=== PATIENT | female | born 1960 | race Caucasian/White ===

== ENCOUNTER → 2016-07-30 | Outpatient (REF) | payer BC ==
[~2016-07-30] MED LIST: /LOR25TA PO; ACET-654 PO; ULTR50TA PO
== END ==
LOC: M SFHCLERA 16:15
PROVIDERS: ATTEND Physician Assistant
DX: E78.2 Mixed hyperlipidemia (principal); Z79.899 Other long term (current) drug therapy

== ENCOUNTER → 2016-10-26 | Outpatient (CLI) | payer BC ==
--- NOTE | 2016-10-27 00:31 | ECWPNPC ---
PATIENT NAME: YASHIRA CAZARES : 1960 GENDER: FEMALE VISIT DATE: 10/26/2016 DISCHARGE DATE: 10/26/16 1459 VISIT LOCKED DATE TIME: PHYSICIAN: BRANDI NUNEZ RESOURCE: BRANDI NUNEZ REASON FOR APPOINTMENT 1. NECK HISTORY OF PRESENT ILLNESS FALL RISK SCREENIN56 Y/O FEMALE ,KNOWN TO OUR CLINIC ,LAST VISIT WAS IN 2011.REFERRED BY PORSHA SAUCEDO FOR EVALUATION OF CHRONIC NECK PAIN AND LEFT ARM PAIN.DESCRIBES PRESSURE LIKE PAIN IN NECK.THIS IS INTERMITTENT.REPORTING FACIAL NUMBNESS.REPORTS AT TIMES NECK PAIN IS SO BAD SHE WAS IN BED X 2 DAYS.REPORTS NECK SWELLING THAT EFFECTS THROAT.HISTORY OF CERVICAL SURGERY IN 2004.USING TRAMADOL 3-6 TABLETS DAILY.REPORTS THAT COLD WEATHER AGGREVATES PAIN.USES HEAT NIGHTLY AND PRN AND NECK BRACE.PAIN IS AGGREVATED BY PROLONGED SITTING IN CERTAIN CHAIRS.REPORTS POOR SLEEP AT NIGHT THAT HAS BEEN GOING ON FOR YEARS.NO RECENT FEER,ILLNESS OR WEIGHT LOSS.REPORTING NORMAL BOWEL AND BLADDER FUNCTION. SCREENING :NO FALLS IN THE PAST YEAR PAIN SCREENING: PATIENT HAS A COMPLAINT OF ACUTE OR CHRONIC PAIN :YES CURRENT MEDICATIONS TAKING BACLOFEN 10 MG TABLET 1 TABLET WITH FOOD OR MILK ORALLY BID PRN, NOTES: PRN TAKING TRAMADOL HCL 50 MG TABLET 1 TABLET NEEDED ORALLY EVERY 6 HRS MDD=4 TAKING FLONASE ALLERGY RELIEF 50 MCG/ACT SUSPENSION 1 SPRAY IN EACH NOSTRIL NASALLY BID TAKING HYDROCODONE-ACETAMINOPHEN 5-325 MG TABLET 1 TABLET NEEDED ORALLY BID PRN MDD=2, NOTES: PRN NOT-TAKING CETIRIZINE HCL 10 MG TABLET 1 TABLET ORALLY ONCE A DAY NOT-TAKING NASONEX 50 MCG/ACT SUSPENSION 2 SPRAYS IN EACH NOSTRIL NASALLY ONCE A DAY NOT-TAKING OXYBUTYNIN CHLORIDE 5 MG TABLET 1 TABLET ORALLY TWICE A DAY DISCONTINUED AMOXICILLIN 875 MG TABLET 1 TABLET ORALLY EVERY 12 HRS MEDICATION LIST REVIEWED AND RECONCILED WITH THE PATIENT PAST MEDICAL HISTORY CHRONIC NECK AND SHOULDER PAIN 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 2DAUGHTER(S) - HEALTHY. DENIES B/C/O CANCERS. NO THYROID CANCERFATHER AND MOTHER--LUNG CAMOTHER-HYPOTHYROID. SOCIAL HISTORY GENERAL: TOBACCO USE ARE YOU A:FORMER SMOKER HOW LONG HAS IT BEEN SINCE YOU LAST SMOKED?1-5 YEARS LUNG CANCER SCREENING SMOKING STATUS:FORMER SMOKER BMI CARE GOAL FOLLOW-UP ABOVE NORMAL BMI FOLLOW-UPDIETARY MANAGEMENT EDUCATION, GUIDANCE, AND COUNSELING, DIETARY NEEDS EDUCATION ALCOHOL SCREENING POINTS0 INTERPRETATIONNEGATIVE RECREATIONAL DRUG USE DENIES. CAFFEINE CAFFEINE USE?YES HOW OFTEN AND HOW MUCH? 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 DIET: NO HX EATING DISORDERS, REGULAR DIET. EXERCISE: NO REGULAR EXERCISE (WALKS IN THE SUMMER). MARITAL STATUS: . OTHERS AT HOME: DAUGHTER. PETS: 1 DOG. RELIGIOUS NO MU-ISM BELIEFS THAT WOULD IMPACT HEALTH CARE. LANGUAGE ICELANDIC. EDUCATION LEVEL OF EDUCATION:PROFESSIONAL SCHOOLS/MASTERS/PHD LEARNING BARRIERS / SPECIAL NEEDS BARRIERS TO LEARNING?NO HEARING IMPAIRED?NO VISION IMPAIRED?YES :CORRECTIVE LENSES COGNITIVELY IMPAIRED?NO READINESS TO LEARN?YES LEARNING PREFERENCES?YES :OTHER (PLEASE COMMENT) READING LEARNING CAPABILITIES PRESENT?YES EMOTIONAL BARRIERS?NO SPECIAL DEVICES?NO ADDRESS CHANGE CLERK NEEDED?NO PAIN CLINIC PFS, CLERGY, PUBLIC HEALTH REFERRALS PFS REFERRAL NEEDED?NO CLERGY REFERRAL NEEDED?NO PUBLIC HEALTH REFERRAL NEEDED?NO ADVANCED DIRECTIVES HEALTH CARE PROXY?NO WOULD YOU LIKE MORE INFORMATION?YES GIVEN DO YOU HAVE A DNR?NO WOULD YOU LIKE MORE INFORMATION?NO LIVING WILL?NO WOULD YOU LIKE MORE INFORMATION?NO POWER OF RN BONE MARROW TRANSPLANT?NO WOULD YOU LIKE MORE INFORMATION?NO DOMESTIC VIOLENCE: DENIES SEXUAL, PHYSICAL ABUSE, VERBAL ABUSE. PLAN OF CARE FOR THE PAIN CENTER REVIEWED WITH PT. AND SHE VERBALIZED UNDERSTANDING. HOSPITALIZATION/MAJOR DIAGNOSTIC PROCEDURE CHILDBIRTH 1989, 1987 SURGERY RELATED REVIEW OF SYSTEMS CONSTITUTIONAL: ANY CHANGE IN YOUR MEDICAL CONDITION? NO . CHILLS NO . FEVER NO . INFECTION: DO YOU HAVE NEW INFECTIONS? NO . DO YOU HAVE HISTORY OF MRSA? NO . MUSCULOSKELETAL: ANY NEW PATTERNS OF PAIN OR NUMBNESS? NO . SYTEMIC LUPUS NO . GASTROENTEROLOGY: ANY NEW CHANGE IN BOWEL CONTROL? NO . BARRETTS ESOPHAGUS NO . CIRRHOSIS NO . HEPATITIS NO . LIVER FAILURE NO . ACID REFLUX YES . UNEXPLAINED WEIGHT LOSS NO . GENITOURINARY: ANY NEW CHANGE IN BLADDER CONTROL? NO . IS THERE A CHANCE YOU COULD BE ? NO . HEMATOLOGY/LYMPH: DO YOU TAKE ANY BLOOD THINNERS? (FOR EXAMPLE- COUMADIN, PLAVIX, AGGRENOX, PLATEL, PRADAXA, OR XARELTO) NO . WHEN WAS YOUR LAST DOSE? DATE: TIME: . LOW PLATELET COUNT NO . SICKLE CELL DISEASE NO . VON WILLIEBRANDS NO . FACTOR V LEIDEN NO . THALLASEMIA NO . ANEMIA NO . EASY BRUISING NO . NEUROLOGY: HAVE YOU FALLEN IN THE PAST 6 MONTHS? NO . ANY NEW EXTREMITY NUMBNESS OR WEAKNESS? NO . HEAD INJURY NO . DEMENTIA NO . CEREBRAL PALSY NO . MULTIPLE SCLEROSIS NO . DIZZINESS NO . HEADACHE NO . STROKES NO . VERTIGO NO . CARDIOLOGY: DO YOU HAVE A PACEMAKER OR DEFIBRILLATOR? NO . ANGINA NO . HEART ATTACK NO . HEART SURGERY NO . CONGESTIVE HEART FAILURE/FLUID OVERLOAD NO . CHEST PAIN NO . HIGH BLOOD PRESSURE NO . IRREGULAR HEART BEAT NO . RESPIRATORY: HAVE YOU BEEN SICK IN THE PAST WEEK? NO . FEVER NO . FLU LIKE SYMPTOMS? NO . CPAP NO . BYPAP NO . ASTHMA NO . EMPHYSEMA NO . CHRONIC LUNG DISEASES NO . SHORTNESS OF BREATH ON EXERTION NO . COUGH NO . SNORING YES, NEVER TESTED FOR ERIC . INTEGUMENTARY: DO YOU HAVE ANY RASHES OR OPEN SORES? NO . ALLERGIC/IMMUNO: ARE YOU ALLERGIC TO SHELLFISH OR IV DYE? NO . ANY NEW ALLERGIES? NO . PSYCHIATRIC: DO YOU HAVE THOUGHTS OF HURTING YOURSELF OR SOMEONE ELSE? NO . ARE YOU ABUSED, NEGLECTED, OR IN AN UNSAFE ENVIRONMENT? NO . ENDOCRINOLOGY: ARE YOU DIABETIC? NO . THYROID DISORDER NO . OTHER: DO YOU NEED ANY PRESCRIPTIONS? NO . IF YES, PLEASE LIST: ____ . ANY NEW PROBLEMS WITH YOUR MEDICATIONS? NO . WHEN DID YOU LAST EAT? ____ . WHEN DID YOU LAST DRINK? ____ . WHAT DID YOU LAST DRINK? ____ . NAME OF PERSON DRIVING YOU HOME? ____ . DO YOU HAVE ANY OTHER QUESTIONS OR CONCERNS PAIN RELIEF--DOES NOT HAVE ANY SOCIAL LIFE DUE TO THE PAIN . REVIEWED BY: PROVIDER: BRANDI THOMPSON . VITAL SIGNS WT 169.4 LBS, HT 67 IN, BMI 26.53 INDEX, BP 136/64 MM HG, HR 82 /MIN, RR 18 /MIN, TEMP 97.5 F, OXYGEN SAT % 94%, NA INITIALS SC 13:42, REVIEWED BY: AD. EXAMINATION CERVICAL SPINE: INSPECTION:NORMAL CONTOUR. PALPATION:VAGUE REPORTS OF TENDERNESS/NUMBNESS LEFT TRAPEZIUS., MIDLINE TENDERNESS. RANGE OF MOTION:LIMITED , FLEXION:. MOTOR EXAM UPPER EXTREMITIES:5/5 ALL GROUPS BILATERALLY. SENSORY EXAM UPPER EXTREMITIES:NORMAL BILATERALLY. TESTS:DTR'S /. DIAGNOSTIC DATA-CERVICAL SPINE SERIES-03/28/15-REVIEWED. ASSESSMENTS CERVICALGIA - M54.2 (PRIMARY) MYALGIA - M79.1 TREATMENT CERVICALGIA [facility] MRI SPINE, CERVICAL WITHOUT [id number] TRIGGER POINT 1-2 BRANDI MATTHEWS 10/26/2016 2:45:29 PM > BILAT. UPPER C-SPINE/BILAT. OCCIPITAL NOTES: TRIGGER POINT INJECTION MATERIAL WAS PRINTED,TRIGGER POINT INJECTION: YOUR EXPERIENCE MATERIAL WAS PRINTED. MYALGIA TRIGGER POINT 1-2 BRANDI MATTHEWS 10/26/2016 2:45:29 PM > BILAT. UPPER C-SPINE/BILAT. OCCIPITAL PREVENTIVE MEDICINE PAIN CLINIC TEACHING: PROCEDURE TEACHING PRINTED INFORMATION ON TPI GIVEN TO AND EXPLAINED TO PT. ALONG WITH PRE-PROCEDURE INSTRUCTIONS AND SHE VERBALIZED UNDERSTANDING.. PROCEDURE CODES FA211 ESTABILISHED PATIENT [facility] CHARGE DISPOSITION & COMMUNICATION FOLLOW UP 2WK POST (REASON: TPI UPPER C-SPINE/OCCIPITAL NERVE BLOCK) ELECTRONICALLY SIGNED BY DONNA DONALDSON ON 10/26/2016 AT 03:24 PM EDT DISCLAIMER : THIS IS A VISIT SUMMARY EXTRACTED FROM THE [employer] CHART. IT IS NOT A COPY OF THE [employer] PROGRESS NOTE. RAFFAELE
== END ==
LOC: M PAIN 13:20
PROVIDERS: ATTEND Nurse Practitioner Family
DX: G89.29 Other chronic pain (principal); M54.2 Cervicalgia; M79.1 Myalgia; E78.2 Mixed hyperlipidemia; N39.46 Mixed incontinence; J30.89 Other allergic rhinitis; L23.81 Allergic contact dermatitis due to animal (cat) (dog) dander; K21.9 Gastro-esophageal reflux disease without esophagitis; Z79.899 Other long term (current) drug therapy

== ENCOUNTER → 2016-12-04 | Outpatient (CLI) | payer BC ==
--- NOTE | 2016-12-04 19:01 | REP ---
MR CERVICAL SPINE WITHOUT CONTRAST: HISTORY: Neck pain. COMPARISON:02/19/2005 The patient is status-post C5-6 anterior spinal fusion. The spinal canal and neural foramina are patent at this level. A disc bulge with associated osteophyte formation is present at the C6-7 level. There is minimal effacement of the thecal sac without spinal cord compression. Bilateral uncinate process hypertrophy is present. This produces minimal and moderate narrowing of the right and left C6 neural foramina respectively. There is no other disc bulge or herniation. The remaining neural foramina are patent. The spinal cord is normal in signal intensity. The C6-7 intervertebral disc is decreased in height consistent with disc degeneration. Normal signal intensity is present in the cervical vertebral bodies. There is no subluxation. IMPRESSION; 1. The patient is status-post C5-6 anterior spinal fusion. There is anatomic alignment. This is a new finding. 2. There is cervical spondylosis at the C6-7 level without spinal cord compression. This is a new finding. Signed by Jhony Ledesma MD 12/04/2016 07:05 P
== END ==
LOC: M RAD 17:26
PROVIDERS: ATTEND Nurse Practitioner Family
DX: M54.2 Cervicalgia (principal); M47.814 Spondylosis without myelopathy or radiculopathy, thoracic region; Z98.1 Arthrodesis status

== ENCOUNTER → 2016-12-17 | Outpatient (CLI) | payer OTHER ==
--- NOTE | 2016-12-17 13:04 | REP ---
RIGHT WRIST, FOUR VIEWS: HISTORY: Contusion. There is no acute fracture or dislocation. The joint spaces are normal in appearance. IMPRESSION: There is no acute fracture or dislocation. Signed by Jhony Ledesma MD 12/17/2016 01:29 P
--- NOTE | 2016-12-17 13:20 | REP ---
RIGHT HAND, FOUR VIEWS: HISTORY: Contusion. There is no acute fracture or dislocation. The joint spaces are normal in appearance. IMPRESSION: There is no acute fracture or dislocation. Signed by Jhony Ledesma MD 12/17/2016 01:30 P
== END ==
LOC: M WUC 11:31
PROVIDERS: ATTEND Physician Assistant
DX: S60.211A Contusion of right wrist, initial encounter (principal); S60.221A Contusion of right hand, initial encounter; X58.XXXA Exposure to other specified factors, initial encounter; Y93.9 Activity, unspecified; Y92.9 Unspecified place or not applicable; Y99.8 Other external cause status

== ENCOUNTER → 2016-12-22 | Outpatient (CLI) | payer BC ==
--- NOTE | 2016-12-23 | ECWPNPC ---
PATIENT NAME: YASHIRA CAZARES : 1960 GENDER: FEMALE VISIT DATE: 12/22/2016 DISCHARGE DATE: 12/22/16 1411 VISIT LOCKED DATE TIME: PHYSICIAN: BRANDI NUNEZ RESOURCE: BRANDI NUNEZ REASON FOR APPOINTMENT 1. REVIEW MRI HISTORY OF PRESENT ILLNESS HISTORY OF PRESENT ILLNESS: HERE FOR F/U AND MANAGEMENT OF CHRONIC NECK PAIN S/P NECK SURGERY 2008.REVIEWED MRI CERVICAL SPINE ORDERED AT LAST VISIT AND DONE ON 12-04-16.DISCUSSED TREATMENT OPTIONS.CONTINUES TO REPORT EPISODES OF THROAT SWELLING WITH FLARES OF INCREASED NECK PAIN.RATING PAIN VAS 3/10.REPORTS PERIODIC IE 2X-3X PER MONTH OF SEVERE PAIN.REPORTS DESIRE TO BE OFF PAIN MEDIATION.CURRENTLY USING 2-3 TAB PER DAY OF ULTRACET AND PRN USE OF HYDROCODONE. PAIN THE PATIENT DESCRIBES THE PAIN... FALL RISK SCREENING: SCREENING :NO FALLS IN THE PAST YEAR CURRENT MEDICATIONS TAKING BACLOFEN 10 MG TABLET 1 TABLET WITH FOOD OR MILK ORALLY BID PRN TAKING FLONASE ALLERGY RELIEF 50 MCG/ACT SUSPENSION 1 SPRAY IN EACH NOSTRIL NASALLY BID TAKING HYDROCODONE-ACETAMINOPHEN 5-325 MG TABLET 1 TABLET NEEDED ORALLY BID PRN MDD=2 TAKING TRAMADOL HCL 50 MG TABLET 1 TABLET NEEDED ORALLY EVERY 6 HRS MDD=4 NOT-TAKING CETIRIZINE HCL 10 MG TABLET 1 TABLET ORALLY ONCE A DAY NOT-TAKING NASONEX 50 MCG/ACT SUSPENSION 2 SPRAYS IN EACH NOSTRIL NASALLY ONCE A DAY NOT-TAKING OXYBUTYNIN CHLORIDE 5 MG TABLET 1 TABLET ORALLY TWICE A DAY MEDICATION LIST REVIEWED AND RECONCILED WITH THE PATIENT PAST MEDICAL HISTORY CHRONIC NECK AND SHOULDER PAIN 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 LUNG CANCER SCREENING SMOKING STATUS:FORMER SMOKER BMI CARE GOAL FOLLOW-UP ABOVE NORMAL BMI FOLLOW-UPDIETARY MANAGEMENT EDUCATION, GUIDANCE, AND COUNSELING, DIETARY NEEDS EDUCATION ALCOHOL SCREENING DID YOU HAVE A DRINK CONTAINING ALCOHOL IN THE PAST YEAR?NO POINTS0 INTERPRETATIONNEGATIVE RECREATIONAL DRUG USE DENIES. CAFFEINE CAFFEINE USE?YES HOW OFTEN AND HOW MUCH? 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 DIET: NO HX EATING DISORDERS, REGULAR DIET. EXERCISE: NO REGULAR EXERCISE (WALKS IN THE SUMMER). MARITAL STATUS: . OTHERS AT HOME: DAUGHTER. PETS: 1 DOG. EPISCOPALIAN NO AMISH BELIEFS THAT WOULD IMPACT HEALTH CARE. LANGUAGE FAROESE. EDUCATION LEVEL OF EDUCATION:PROFESSIONAL SCHOOLS/MASTERS/PHD LEARNING BARRIERS / SPECIAL NEEDS BARRIERS TO LEARNING?NO HEARING IMPAIRED?NO VISION IMPAIRED?YES COGNITIVELY IMPAIRED?NO :CORRECTIVE LENSES READINESS TO LEARN?YES LEARNING PREFERENCES?YES :OTHER (PLEASE COMMENT) READING LEARNING CAPABILITIES PRESENT?YES EMOTIONAL BARRIERS?NO SPECIAL DEVICES?NO REVENUE AUDIT CLERK NEEDED?NO PAIN CLINIC PFS, CLERGY, PUBLIC HEALTH REFERRALS PFS REFERRAL NEEDED?NO CLERGY REFERRAL NEEDED?NO PUBLIC HEALTH REFERRAL NEEDED?NO HAS THE PATIENT BEEN EDUCATED REGARDING HIS/HER PLAN OF CARE?YES HAS THE PATIENT BEEN EDUCATED REGARDING PAIN, THE RISK FOR PAIN, THE IMPORTANCE OF EFFECTIVE PAIN MANAGEMENT, AND THE PAIN ASSESSMENT PROCESS?YES ADVANCE DIRECTIVES HEALTH CARE PROXY?NO WOULD YOU LIKE MORE INFORMATION?YES GIVEN POWER OF ENGAGEMENT EXECUTIVE?NO DO YOU HAVE A DNR?NO WOULD YOU LIKE MORE INFORMATION?NO LIVING WILL?NO WOULD YOU LIKE MORE INFORMATION?NO WOULD YOU LIKE MORE INFORMATION?NO DOMESTIC VIOLENCE DENIES SEXUAL, PHYSICAL ABUSE, VERBAL ABUSE. PLAN OF CARE FOR THE PAIN CENTER REVIEWED WITH PT. AND SHE VERBALIZED UNDERSTANDING. REVIEW OF SYSTEMS CONSTITUTIONAL: ANY CHANGE IN YOUR MEDICAL CONDITION? NO . CHILLS NO . FEVER NO . INFECTION: DO YOU HAVE NEW INFECTIONS? NO . DO YOU HAVE HISTORY OF MRSA? NO . MUSCULOSKELETAL: ANY NEW PATTERNS OF PAIN OR NUMBNESS? NO . GASTROENTEROLOGY: ANY NEW CHANGE IN BOWEL CONTROL? NO . GENITOURINARY: ANY NEW CHANGE IN BLADDER CONTROL? NO . IS THERE A CHANCE YOU COULD BE ? NO . HEMATOLOGY/LYMPH: DO YOU TAKE ANY BLOOD THINNERS? (FOR EXAMPLE- COUMADIN, PLAVIX, AGGRENOX, PLATEL, PRADAXA, OR XARELTO) NO . WHEN WAS YOUR LAST DOSE? DATE: TIME: . NEUROLOGY: HAVE YOU FALLEN IN THE PAST 6 MONTHS? NO . ANY NEW EXTREMITY NUMBNESS OR WEAKNESS? NO . CARDIOLOGY: DO YOU HAVE A PACEMAKER OR DEFIBRILLATOR? NO . RESPIRATORY: HAVE YOU BEEN SICK IN THE PAST WEEK? NO . FEVER NO . FLU LIKE SYMPTOMS? NO . COUGH NO . INTEGUMENTARY: DO YOU HAVE ANY RASHES OR OPEN SORES? NO . ALLERGIC/IMMUNO: ARE YOU ALLERGIC TO SHELLFISH OR IV DYE? NO . ANY NEW ALLERGIES? NO . PSYCHIATRIC: DO YOU HAVE THOUGHTS OF HURTING YOURSELF OR SOMEONE ELSE? NO . ARE YOU ABUSED, NEGLECTED, OR IN AN UNSAFE ENVIRONMENT? NO . ENDOCRINOLOGY: ARE YOU DIABETIC? NO . OTHER: DO YOU NEED ANY PRESCRIPTIONS? NO . IF YES, PLEASE LIST: ____ . ANY NEW PROBLEMS WITH YOUR MEDICATIONS? NO . WHEN DID YOU LAST EAT? ____ . WHEN DID YOU LAST DRINK? ____ . WHAT DID YOU LAST DRINK? ____ . NAME OF PERSON DRIVING YOU HOME? ____ . DO YOU HAVE ANY OTHER QUESTIONS OR CONCERNS NO . REVIEWED BY: PROVIDER: BRANDI THOMPSON . VITAL SIGNS WT 170 LBS, HT 67 IN, BMI 26.62 INDEX, BP 150/86 MM HG, HR 75 /MIN, RR 18 /MIN, TEMP 98.1 F, OXYGEN SAT % 97%, REVIEWED BY: (DONE AT 1329). EXAMINATION CERVICAL SPINE: INSPECTION:NORMAL CONTOUR. PALPATION:VAGUE REPORTS OF TENDERNESS/NUMBNESS LEFT TRAPEZIUS., MIDLINE TENDERNESS. RANGE OF MOTION:LIMITED , FLEXION:. MOTOR EXAM UPPER EXTREMITIES:5/5 ALL GROUPS BILATERALLY. SENSORY EXAM UPPER EXTREMITIES:NORMAL BILATERALLY. TESTS:DTR'S 2/4. DIAGNOSTIC DATA-CERVICAL SPINE SERIES-03/28/15-REVIEWEDMRI [id number]. ASSESSMENTS CERVICALGIA - M54.2 (PRIMARY) CERVICAL SPONDYLOSIS WITHOUT MYELOPATHY - M47.812 TREATMENT CERVICALGIA NOTES: REQUEST C5/6-C6/7 CERVICAL THERAPEUTIC FACET BLOCK,FACET JOINT INJECTION: YOUR EXPERIENCE MATERIAL WAS PRINTED,FACET JOINT INJECTION MATERIAL WAS PRINTED. PREVENTIVE MEDICINE PAIN CLINIC TEACHING: PROCEDURE TEACHING CERVICAL FACET TEACHING DONE AND INFORMATION GIVEN. QUESTIONS ANSWERED AND PATIENT VERBALIZED UNDERSTANDING.. PROCEDURE CODES FA211 ESTABILISHED PATIENT [facility] FACILITY CHARGE DISPOSITION & COMMUNICATION FOLLOW UP 2WK POST (REASON: REQUEST C5/6-C6/7 CERVICAL THERAPEUTIC FACET BLOCK) ELECTRONICALLY SIGNED BY DONNA DONALDSON ON 12/22/2016 AT 03:50 PM EDT DISCLAIMER : THIS IS A VISIT SUMMARY EXTRACTED FROM THE [employer] [place] CHART. IT IS NOT A COPY OF THE [employer] [place] PROGRESS NOTE. THID
== END ==
LOC: M PAIN 13:20
PROVIDERS: ATTEND Nurse Practitioner Family
DX: G89.29 Other chronic pain (principal); M50.30 Other cervical disc degeneration, unspecified cervical region; M47.812 Spondylosis without myelopathy or radiculopathy, cervical region; E78.2 Mixed hyperlipidemia; J30.89 Other allergic rhinitis; L23.81 Allergic contact dermatitis due to animal (cat) (dog) dander; Z79.899 Other long term (current) drug therapy; Z87.891 Personal history of nicotine dependence

== ENCOUNTER → 2017-01-07 | Outpatient (REF) | payer BC | LOC: M WUC 11:57 | PROVIDERS: ATTEND Physician Assistant | DX: J02.9 Acute pharyngitis, unspecified (principal) ==

== ENCOUNTER → 2017-04-08 | Outpatient (CLI) | payer BC ==
[~2017-04-08] MED LIST changes: +BUPIVACAINE HCL 0.25% 30 ML VIAL As Ordered ONE; +ISOVUE-M 300 61% 15ML VIAL (Q9967) As Ordered ONE; +LIDOCAINE 1% SDV INJ 30 ML VIAL As Ordered ONE; +TRIAMCINOLONE ACETONIDE SUSP 40 MG/ML VIAL (J3301) As Ordered ONE; +diazePAM 5 MG TAB As Ordered ONE; +oxyCODONE 5MG TAB As Ordered ONE
--- NOTE | 2017-04-08 14:41 | REP ---
LIMITED CERVICAL SPINE SERIES: SINGLE VIEW. INTRA-OP. HISTORY: Bilateral cervical facet block for pain. 9 seconds of fluoroscopy time is reported. FINDINGS: A single last image hold fluoroscopic spot radiograph of the cervical spine documents various needle positions and contrast injections. Signed by Issac Beard MD 04/08/2017 05:23 P
--- NOTE | 2017-04-13 00:05 | ECWPNPC ---
PATIENT NAME: YASHIRA CAZARES : 1960 GENDER: FEMALE VISIT DATE: 04/08/2017 DISCHARGE DATE: 04/08/17 1421 VISIT LOCKED DATE TIME: PHYSICIAN: TJ SIMMS RESOURCE: TJ SIMMS REASON FOR APPOINTMENT 1. CERV THERA FACET, C5-6, C6-7 HISTORY OF PRESENT ILLNESS HISTORY OF PRESENT ILLNESS: PAIN THE PATIENT DESCRIBES THE PAIN... FALL RISK SCREENING: SCREENING :NO FALLS IN THE PAST YEAR CURRENT MEDICATIONS TAKING NASONEX 50 MCG/ACT SUSPENSION 2 SPRAYS IN EACH NOSTRIL NASALLY ONCE A DAY, NOTES: 04/07/17 TAKING TRAMADOL HCL 50 MG TABLET 1 TABLET NEEDED ORALLY EVERY 6 HRS MDD=4, NOTES: 04/08/17 0800 NOT-TAKING CETIRIZINE HCL 10 MG TABLET 1 TABLET ORALLY ONCE A DAY NOT-TAKING OXYBUTYNIN CHLORIDE 5 MG TABLET 1 TABLET ORALLY TWICE A DAY UNKNOWN AMOXICILLIN 500 MG CAPSULE 1 CAPSULE ORALLY BID UNKNOWN FLONASE ALLERGY RELIEF 50 MCG/ACT SUSPENSION 1 SPRAY IN EACH NOSTRIL NASALLY BID UNKNOWN HYDROCODONE-ACETAMINOPHEN 5-325 MG TABLET 1 TABLET NEEDED ORALLY BID PRN MDD=2 UNKNOWN ZOFRAN ODT 4 MG TABLET DISPERSIBLE 1 TABLET ON THE TONGUE AND ALLOW TO DISSOLVE FOR 2 DOSES ORALLY EVERY 8 HRS PRN NAUSEA MEDICATION LIST REVIEWED AND RECONCILED WITH THE PATIENT PAST MEDICAL HISTORY CHRONIC NECK AND SHOULDER PAIN 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 LUNG CANCER SCREENING SMOKING STATUS:FORMER SMOKER BMI CARE GOAL FOLLOW-UP ABOVE NORMAL BMI FOLLOW-UPDIETARY MANAGEMENT EDUCATION, GUIDANCE, AND COUNSELING, DIETARY NEEDS EDUCATION ALCOHOL SCREENING DID YOU HAVE A DRINK CONTAINING ALCOHOL IN THE PAST YEAR?NO POINTS0 INTERPRETATIONNEGATIVE RECREATIONAL DRUG USE DENIES. CAFFEINE CAFFEINE USE?YES HOW OFTEN AND HOW MUCH? 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 DIET: NO HX EATING DISORDERS, REGULAR DIET. EXERCISE: NO REGULAR EXERCISE (WALKS IN THE SUMMER). MARITAL STATUS: . OTHERS AT HOME: DAUGHTER. PETS: 1 DOG. ALEVISM NO HINDUISM BELIEFS THAT WOULD IMPACT HEALTH CARE. LANGUAGE UZBEK. EDUCATION LEVEL OF EDUCATION:PROFESSIONAL SCHOOLS/MASTERS/PHD LEARNING BARRIERS / SPECIAL NEEDS BARRIERS TO LEARNING?NO HEARING IMPAIRED?NO VISION IMPAIRED?YES COGNITIVELY IMPAIRED?NO :CORRECTIVE LENSES READINESS TO LEARN?YES LEARNING PREFERENCES?YES :OTHER (PLEASE COMMENT) READING LEARNING CAPABILITIES PRESENT?YES EMOTIONAL BARRIERS?NO SPECIAL DEVICES?NO HAND PATTERN MARKER NEEDED?NO PAIN CLINIC PFS, CLERGY, PUBLIC HEALTH REFERRALS PFS REFERRAL NEEDED?NO CLERGY REFERRAL NEEDED?NO PUBLIC HEALTH REFERRAL NEEDED?NO HAS THE PATIENT BEEN EDUCATED REGARDING HIS/HER PLAN OF CARE?YES HAS THE PATIENT BEEN EDUCATED REGARDING PAIN, THE RISK FOR PAIN, THE IMPORTANCE OF EFFECTIVE PAIN MANAGEMENT, AND THE PAIN ASSESSMENT PROCESS?YES ADVANCE DIRECTIVES HEALTH CARE PROXY?NO WOULD YOU LIKE MORE INFORMATION?YES GIVEN POWER OF SHIRT CLOSER?NO DO YOU HAVE A DNR?NO WOULD YOU LIKE MORE INFORMATION?NO LIVING WILL?NO WOULD YOU LIKE MORE INFORMATION?NO WOULD YOU LIKE MORE INFORMATION?NO DOMESTIC VIOLENCE DENIES SEXUAL, PHYSICAL ABUSE, VERBAL ABUSE. PLAN OF CARE FOR THE PAIN CENTER REVIEWED WITH PT. AND SHE VERBALIZED UNDERSTANDING. HOSPITALIZATION/MAJOR DIAGNOSTIC PROCEDURE CHILDBIRTH 1987, 1985 SURGERY RELATED REVIEW OF SYSTEMS REVIEWED BY: PROVIDER: . CONSTITUTIONAL: ANY CHANGE IN YOUR MEDICAL CONDITION? NO . CHILLS NO . FEVER NO . INFECTION: DO YOU HAVE NEW INFECTIONS? NO . DO YOU HAVE HISTORY OF MRSA? NO . MUSCULOSKELETAL: ANY NEW PATTERNS OF PAIN OR NUMBNESS? YES, LEFT EYE WENT BLURRY WITH INCREASED NECK PAIN. PT RESTED AND NECK PAIN DECREASED, EYE VISION RESOLVED WITH DECREASED NECK PAIN . GASTROENTEROLOGY: ANY NEW CHANGE IN BOWEL CONTROL? NO . GENITOURINARY: ANY NEW CHANGE IN BLADDER CONTROL? NO . IS THERE A CHANCE YOU COULD BE ? NO . HEMATOLOGY/LYMPH: DO YOU TAKE ANY BLOOD THINNERS? (FOR EXAMPLE- COUMADIN, PLAVIX, AGGRENOX, PLATEL, PRADAXA, OR XARELTO) NO . WHEN WAS YOUR LAST DOSE? DATE: TIME: . NEUROLOGY: HAVE YOU FALLEN IN THE PAST 6 MONTHS? NO . ANY NEW EXTREMITY NUMBNESS OR WEAKNESS? NO . CARDIOLOGY: DO YOU HAVE A PACEMAKER OR DEFIBRILLATOR? NO . RESPIRATORY: HAVE YOU BEEN SICK IN THE PAST WEEK? NO . FEVER NO . FLU LIKE SYMPTOMS? NO . COUGH NO . INTEGUMENTARY: DO YOU HAVE ANY RASHES OR OPEN SORES? NO . ALLERGIC/IMMUNO: ARE YOU ALLERGIC TO SHELLFISH OR IV DYE? NO . ANY NEW ALLERGIES? NO . PSYCHIATRIC: DO YOU HAVE THOUGHTS OF HURTING YOURSELF OR SOMEONE ELSE? NO . ARE YOU ABUSED, NEGLECTED, OR IN AN UNSAFE ENVIRONMENT? NO . ENDOCRINOLOGY: ARE YOU DIABETIC? NO . OTHER: DO YOU NEED ANY PRESCRIPTIONS? NO . IF YES, PLEASE LIST: ____ . ANY NEW PROBLEMS WITH YOUR MEDICATIONS? NO . WHEN DID YOU LAST EAT? ____ . WHEN DID YOU LAST DRINK? ____ . WHAT DID YOU LAST DRINK? ____ . NAME OF PERSON DRIVING YOU HOME? ____ . DO YOU HAVE ANY OTHER QUESTIONS OR CONCERNS NO . VITAL SIGNS WT 169 LBS, HT 67 IN, BMI 26.47 INDEX, BP 167/83 MM HG, HR 72 /MIN, RR 18 /MIN, TEMP 98.0 F, OXYGEN SAT % 98%, NA INITIALS SC 11:04. ASSESSMENTS SPONDYLOSIS OF CERVICAL REGION WITHOUT MYELOPATHY OR RADICULOPATHY - M47.812 (PRIMARY) PROCEDURES PN CERVICAL FACET BLOCK LOW BILATERAL CERVICAL PRE PROCEDURE DIAGNOSIS CERVICAL SPONDYLOSIS POST PROCEDURE DIAGNOSIS CERVICAL SPONDYLOSIS PROCEDURE BILATERAL C4-C5 AND BILATERAL C6-C7 CERVICAL FACET BLOCK SURGEON DR. TJ SIMMS QUALITY TECHNICIAN NONE ANESTHESIA LOCAL PRE PROCEDURE NOTE THE PATIENT HAS HISTORY OF CHRONIC CERVICAL PAIN. I EVALUATE THE PATIENT AND REVIEWED THE CHART. I WENT OVER THE RISKS, ALTERNATIVES, AND BENEFITS ASSOCIATED WITH THIS PROCEDURE. THE PATIENT WOULD LIKE TO PROCEED AND GIVE CONSENT TO PERFORMED THE PROCEDURE. THE PATIENT DENIES UNEXPLAINABLE WEIGHT LOSS, FEVER, CHILLS, OR NEW CHANGES IN URINARY OR BOWEL CONTROL. DESCRIPTION OF PROCEDURE THE PATIENT WAS BROUGHT TO THE PROCEDURE ROOM AND PLACED IN THE PRONE POSITION. THE CERVICOTHORACIC AREA WAS CLEANED WITH CHLORAPREP SOLUTION AND DRAPED ASEPTICALLY. THE PROCEDURE WAS DONE UNDER STERILE CONDITIONS. I CHECKED LATERALITY AND THE LEVEL WHERE THE PROCEDURE WAS GOING TO BE PERFORMED WITH THE PATIENT AND THE SUPPORTING STAFF AT THE MOMENT OF THE TIME OUT IN THE PROCEDURE ROOM. UNDER FLUOROSCOPIC GUIDANCE, TARGET POINT WAS SELECTED AT THE RIGHT AND LEFT C4-C5 AND RIGHT AND LEFT C6-C7 CERVICAL FACET JOINT. TARGET POINTS WERE SELECTED AFTER LATERAL ROTATION AND TILT OF THE MAGNIFIER OF THE C-ARM. LIDOCAINE 0.5% WAS USED TO NUMB THE SKIN AND THE SUBCUTANEOUS TISSUE BELOW IT. SPINAL NEEDLES, 22-GAUGE, WERE ADVANCED UNDER FLUOROSCOPIC GUIDANCE AND FOLLOWING PATIENT FEEDBACK UNTIL THE TARGETS WERE TOUCHED. THE POSITION OF THE NEEDLES WAS VERIFIED WITH AP AND LATERAL VIEWS. AFTER PROPER POSITION OF THE NEEDLES WAS ACHIEVED, ISOVUE M DYE 30, 0.1 ML WAS INJECTED SHOWING SPREAD OF THE DYE. THEN A SOLUTION OF 0.9 ML OF BUPIVACAINE 0.125% AND KENALOG 10 MG WAS INJECTED AT EACH SITE. THERE WAS NO EVIDENCE OF BLOOD, PARESTHESIA OR CEREBROSPINAL FLUID DURING THE PROCEDURE. THE PATIENT WAS SENT TO THE RECOVERY ROOM. THE PATIENT WAS MOVING THE EXTREMITIES AND DOING WELL. THERE WAS NO COMPLICATION DURING THE PROCEDURE. FLUOROSCOPY TIME WAS 9 SECONDS POST PROCEDURE NOTE THE PATIENT WILL BE SEEN IN A FOLLOW UP IN THE NEXT FEW WEEKS. INSTRUCTIONS WERE GIVEN, QUESTIONS WERE ANSWERED, AND THE PATIENT EXPRESSED UNDERSTANDING AND AGREES WITH THE PLAN. I, PAMELA JACK, DOCUMENTED THE ABOVE INFORMATION ACTING A SCRIBE FOR DR. SIMMS. I HAVE REVIEWED THE ABOVE DOCUMENT, WRITTEN BY PAMELA MALDONADO AND I VERIFY THAT IT IS ACCURATE DIAGNOSTIC IMAGING [facility] FACET BLOCK (PAIN)[id number] PROCEDURE CODES 61745 INJ PARAVERT F JNT C/T 1 LEV, MODIFIERS: 50 50373 INJ PARAVERT F JNT C/T 2 LEV, MODIFIERS: 50 6045F RADXPS IN END [id number] PXD DISPOSITION & COMMUNICATION FOLLOW UP 3 WEEKS ELECTRONICALLY SIGNED BY TJ SIMMS MD ON 04/12/2017 AT 02:58 PM EDT DISCLAIMER : THIS IS A VISIT SUMMARY EXTRACTED FROM THE [employer] CHART. IT IS NOT A COPY OF THE [employer] PROGRESS NOTE. MTDD
== END ==
LOC: M PAIN 11:00
PROVIDERS: ATTEND Anesthesiology
DX: G89.29 Other chronic pain (principal); M47.812 Spondylosis without myelopathy or radiculopathy, cervical region; J30.89 Other allergic rhinitis; L23.81 Allergic contact dermatitis due to animal (cat) (dog) dander; Z79.891 Long term (current) use of opiate analgesic; Z79.899 Other long term (current) drug therapy; Z87.891 Personal history of nicotine dependence
CPT/HCPCS: 64490; 64491; J3301; Q9967

== ENCOUNTER → 2017-04-22 | Outpatient (CLI) | payer BC ==
[~2017-04-22] MED LIST changes: -BUPIVACAINE HCL 0.25% 30 ML VIAL As Ordered ONE; -ISOVUE-M 300 61% 15ML VIAL (Q9967) As Ordered ONE; -LIDOCAINE 1% SDV INJ 30 ML VIAL As Ordered ONE; -TRIAMCINOLONE ACETONIDE SUSP 40 MG/ML VIAL (J3301) As Ordered ONE; -diazePAM 5 MG TAB As Ordered ONE; -oxyCODONE 5MG TAB As Ordered ONE
--- NOTE | 2017-04-23 00:07 | ECWPNPC ---
PATIENT NAME: YASHIRA CAZARES : 1960 GENDER: FEMALE VISIT DATE: 04/22/2017 DISCHARGE DATE: 04/22/17 1036 VISIT LOCKED DATE TIME: PHYSICIAN: BRANDI NUNEZ RESOURCE: BRANDI NUNEZ REASON FOR APPOINTMENT 1. POST PROC HISTORY OF PRESENT ILLNESS HISTORY OF PRESENT ILLNESS: HERE FOR POST PROCEDURE F/U.HAD BILATERAL C4/4-C6/7 CERVICAL THERAPEUTIC FACET BLOCK ON 04-08-17.REPORTS NO IMPROVEMENT AND INITIAL AGGREVATION IN PAIN.SHE IS STATUS POST ANTERIOR CERVICAL SURGERY IN 2008.RATING PAIN VAS 3/10.DESCRIBES INTERMITTENT TENDER AND SORENESS IN NECK.REPORTS INTERMITTENT NUMBNESS BILATERAL ARMS AND HANDS.DISCUSSED MEDICATION AND TREATMENT OPTIONS. PAIN THE PATIENT DESCRIBES THE PAIN... FALL RISK SCREENING: SCREENING :NO FALLS IN THE PAST YEAR CURRENT MEDICATIONS TAKING CETIRIZINE HCL 10 MG TABLET 1 TABLET ORALLY ONCE A DAY TAKING HYDROCODONE-ACETAMINOPHEN 5-325 MG TABLET 1 TABLET NEEDED ORALLY BID PRN MDD=2 TAKING TRAMADOL HCL 50 MG TABLET 1 TABLET NEEDED ORALLY EVERY 6 HRS MDD=4 TAKING FLONASE ALLERGY RELIEF 50 MCG/ACT SUSPENSION 1 SPRAY IN EACH NOSTRIL NASALLY NEEDED TAKING ZOFRAN ODT 4 MG TABLET DISPERSIBLE 1 TABLET ON THE TONGUE AND ALLOW TO DISSOLVE FOR 2 DOSES ORALLY EVERY 8 HRS PRN NAUSEA NOT-TAKING OXYBUTYNIN CHLORIDE 5 MG TABLET 1 TABLET ORALLY TWICE A DAY NOT-TAKING NASONEX 50 MCG/ACT SUSPENSION 2 SPRAYS IN EACH NOSTRIL NASALLY ONCE A DAY NOT-TAKING AMOXICILLIN 500 MG CAPSULE 1 CAPSULE ORALLY BID MEDICATION LIST REVIEWED AND RECONCILED WITH THE PATIENT PAST MEDICAL HISTORY CHRONIC NECK AND SHOULDER PAIN 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 LUNG CANCER SCREENING SMOKING STATUS:FORMER SMOKER BMI CARE GOAL FOLLOW-UP ABOVE NORMAL BMI FOLLOW-UPDIETARY MANAGEMENT EDUCATION, GUIDANCE, AND COUNSELING, DIETARY NEEDS EDUCATION ALCOHOL SCREENING DID YOU HAVE A DRINK CONTAINING ALCOHOL IN THE PAST YEAR?NO POINTS0 INTERPRETATIONNEGATIVE RECREATIONAL DRUG USE DENIES. CAFFEINE CAFFEINE USE?YES HOW OFTEN AND HOW MUCH? 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 DIET: NO HX EATING DISORDERS, REGULAR DIET. EXERCISE: NO REGULAR EXERCISE (WALKS IN THE SUMMER). MARITAL STATUS: . OTHERS AT HOME: DAUGHTER. PETS: 1 DOG. CONGREGATION NO CONGREGATION BELIEFS THAT WOULD IMPACT HEALTH CARE. LANGUAGE SERBIAN. EDUCATION LEVEL OF EDUCATION:PROFESSIONAL SCHOOLS/MASTERS/PHD LEARNING BARRIERS / SPECIAL NEEDS CHANGE FROM LAST VISIT?NO BARRIERS TO LEARNING?NO HEARING IMPAIRED?NO VISION IMPAIRED?YES :CORRECTIVE LENSES COGNITIVELY IMPAIRED?NO READINESS TO LEARN?YES LEARNING PREFERENCES?YES :OTHER (PLEASE COMMENT) READING LEARNING CAPABILITIES PRESENT?YES EMOTIONAL BARRIERS?NO SPECIAL DEVICES?NO OUTSIDE PLANT FIELD ENGINEER NEEDED?NO PAIN CLINIC PFS, CLERGY, PUBLIC HEALTH REFERRALS PFS REFERRAL NEEDED?NO CLERGY REFERRAL NEEDED?NO PUBLIC HEALTH REFERRAL NEEDED?NO HAS THE PATIENT BEEN EDUCATED REGARDING HIS/HER PLAN OF CARE?YES HAS THE PATIENT BEEN EDUCATED REGARDING PAIN, THE RISK FOR PAIN, THE IMPORTANCE OF EFFECTIVE PAIN MANAGEMENT, AND THE PAIN ASSESSMENT PROCESS?YES ADVANCE DIRECTIVES HEALTH CARE PROXY?NO WOULD YOU LIKE MORE INFORMATION?YES GIVEN DO YOU HAVE A DNR?NO WOULD YOU LIKE MORE INFORMATION?NO LIVING WILL?NO WOULD YOU LIKE MORE INFORMATION?NO POWER OF CRYPTOGRAPHIC VULNERABILITY ANALYST?NO WOULD YOU LIKE MORE INFORMATION?NO DOMESTIC VIOLENCE DENIES SEXUAL, PHYSICAL ABUSE, VERBAL ABUSE. PLAN OF CARE FOR THE PAIN CENTER REVIEWED WITH PT. AND SHE VERBALIZED UNDERSTANDING. REVIEW OF SYSTEMS REVIEWED BY: PROVIDER: BRANDI THOMPSON . CONSTITUTIONAL: ANY CHANGE IN YOUR MEDICAL CONDITION? NO . CHILLS NO . FEVER NO . INFECTION: DO YOU HAVE NEW INFECTIONS? NO . DO YOU HAVE HISTORY OF MRSA? NO . MUSCULOSKELETAL: ANY NEW PATTERNS OF PAIN OR NUMBNESS? NO . GASTROENTEROLOGY: ANY NEW CHANGE IN BOWEL CONTROL? NO . GENITOURINARY: ANY NEW CHANGE IN BLADDER CONTROL? NO . IS THERE A CHANCE YOU COULD BE ? NO . HEMATOLOGY/LYMPH: DO YOU TAKE ANY BLOOD THINNERS? (FOR EXAMPLE- COUMADIN, PLAVIX, AGGRENOX, PLATEL, PRADAXA, OR XARELTO) NO . WHEN WAS YOUR LAST DOSE? DATE: TIME: . NEUROLOGY: HAVE YOU FALLEN IN THE PAST 6 MONTHS? NO . ANY NEW EXTREMITY NUMBNESS OR WEAKNESS? NO . CARDIOLOGY: DO YOU HAVE A PACEMAKER OR DEFIBRILLATOR? NO . RESPIRATORY: HAVE YOU BEEN SICK IN THE PAST WEEK? NO . FEVER NO . FLU LIKE SYMPTOMS? NO . COUGH NO . INTEGUMENTARY: DO YOU HAVE ANY RASHES OR OPEN SORES? NO . ALLERGIC/IMMUNO: ARE YOU ALLERGIC TO SHELLFISH OR IV DYE? NO . ANY NEW ALLERGIES? NO . PSYCHIATRIC: DO YOU HAVE THOUGHTS OF HURTING YOURSELF OR SOMEONE ELSE? NO . ARE YOU ABUSED, NEGLECTED, OR IN AN UNSAFE ENVIRONMENT? NO . ENDOCRINOLOGY: ARE YOU DIABETIC? NO . OTHER: DO YOU NEED ANY PRESCRIPTIONS? NO . IF YES, PLEASE LIST: ____ . ANY NEW PROBLEMS WITH YOUR MEDICATIONS? NO . WHEN DID YOU LAST EAT? ____ . WHEN DID YOU LAST DRINK? ____ . WHAT DID YOU LAST DRINK? ____ . NAME OF PERSON DRIVING YOU HOME? ____ . DO YOU HAVE ANY OTHER QUESTIONS OR CONCERNS NO . VITAL SIGNS WT 160 LBS, HT 67 IN, BMI 25.06 INDEX, BP 136/72 MM HG, HR 89 /MIN, RR 18 /MIN, TEMP 97.7 F, OXYGEN SAT % 97%, SAFE IN ENV? (Y/N) YES, NA INITIALS AW 0951, REVIEWED BY: JESSY. EXAMINATION CERVICAL SPINE: INSPECTION:NORMAL CONTOUR. PALPATION:VAGUE REPORTS OF TENDERNESS/NUMBNESS LEFT TRAPEZIUS., MIDLINE TENDERNESS. RANGE OF MOTION:LIMITED , FLEXION:. MOTOR EXAM UPPER EXTREMITIES:5/5 ALL GROUPS BILATERALLY. SENSORY EXAM UPPER EXTREMITIES:NORMAL BILATERALLY. TESTS:DTR'S 2/4. DIAGNOSTIC DATA-CERVICAL SPINE SERIES-03/28/15-REVIEWEDMRI [id number]. ASSESSMENTS SPONDYLOSIS OF CERVICAL REGION WITHOUT MYELOPATHY OR RADICULOPATHY - M47.812 (PRIMARY) MYALGIA - M79.1 CERVICALGIA - M54.2 TREATMENT SPONDYLOSIS OF CERVICAL REGION WITHOUT MYELOPATHY OR RADICULOPATHY NOTES: REQUEST BILATERAL C4/5-C6/7 THERAPEUTIC FACET BLOCK WITH SEDATION. PREVENTIVE MEDICINE PAIN CLINIC TEACHING: PROCEDURE TEACHING PRE-PROCEDURE TEACHING DONE. QUESTIONS ANSWERED AND PATIENT VERBALIZES UNDERSTANDING.. PROCEDURE CODES FA211 ESTABILISHED PATIENT [facility] FACILITY CHARGE DISPOSITION & COMMUNICATION FOLLOW UP 2WK POST (REASON: REQUEST BILATERAL C4/5-C6/7 THERAPEUTIC FACET BLOCK WITH SEDATION) ELECTRONICALLY SIGNED BY DONNA DONALDSON ON 04/22/2017 AT 04:39 PM EDT DISCLAIMER : THIS IS A VISIT SUMMARY EXTRACTED FROM THE [employer] CHART. IT IS NOT A COPY OF THE [employer] PROGRESS NOTE. RAFFAELE
== END ==
LOC: M PAIN 09:45
PROVIDERS: ATTEND Nurse Practitioner Family
DX: G89.29 Other chronic pain (principal); M47.812 Spondylosis without myelopathy or radiculopathy, cervical region; M54.2 Cervicalgia; M79.1 Myalgia; J30.2 Other seasonal allergic rhinitis; L23.81 Allergic contact dermatitis due to animal (cat) (dog) dander; Z79.891 Long term (current) use of opiate analgesic; Z79.899 Other long term (current) drug therapy; Z87.891 Personal history of nicotine dependence

== ENCOUNTER → 2017-07-29 | Outpatient (CLI) | payer BC | LOC: M LRY 09:55 | DX: Z12.31 Encounter for screening mammogram for malignant neoplasm of breast (principal); R00.0 Tachycardia, unspecified | CPT/HCPCS: 71046 ==

== ENCOUNTER → 2017-07-29 | Outpatient (CLI) | payer BC | LOC: M LRY 09:45 | DX: N39.0 Urinary tract infection, site not specified (principal) ==

== ENCOUNTER → 2017-07-29 | Outpatient (REF) | payer BC ==
[2017-07-29 11:47] LABS: HEMATOCRIT 38.6 % (36.0-47.0); HEMOGLOBIN 12.6 g/dl (12.0-16.0); MEAN CORPUSCULAR HEMOGLOBIN 29.1 pg (27.0-33.0); MEAN CORPUSCULAR HGB CONC 32.6 g/dl (32.0-36.5); MEAN CORPUSCULAR VOLUME 89.1 fl (80.0-96.0); PLATELET COUNT, AUTOMATED 314 10^3/uL (150-450); RED BLOOD COUNT 4.33 10^6/uL (4.00-5.40); RED CELL DISTRIBUTION WIDTH 12.6 % (11.5-14.5); WHITE BLOOD COUNT 5.6 10^3/uL (4.0-10.0)
[2017-07-29 12:41] LABS: ALBUMIN 4.2 GM/DL (3.2-5.2); ALKALINE PHOSPHATASE 115 U/L (45-117); ALT/SGPT 19 U/L (12-78); ANION GAP 6 MEQ/L (8-16); AST/SGOT 13 U/L (7-37); BILIRUBIN,TOTAL 0.3 MG/DL (0.2-1.0); BLOOD UREA NITROGEN 20 MG/DL (7-18); CALCIUM LEVEL 9.8 MG/DL (8.5-10.1); CARBON DIOXIDE LEVEL 31 MEQ/L (21-32); CHLORIDE LEVEL 102 MEQ/L (98-107); CHOLESTEROL LEVEL 319 MG/DL (<200); CHOLESTEROL RISK RATIO 4.623 (<5); CREATININE FOR GFR 0.79 MG/DL (0.55-1.02); GLOMERULAR FILTRATION RATE > 60.0 (>51); GLUCOSE, FASTING 89 MG/DL (70-100); HDL CHOLESTEROL 69 MG/DL (>40); LDL CHOLESTEROL 211.2 MG/DL (<100); NON-HDL-C 250 MG/DL; POTASSIUM SERUM 4.9 MEQ/L (3.5-5.1); SODIUM LEVEL 139 MEQ/L (136-145); TOTAL PROTEIN 7.7 GM/DL (6.4-8.2); TRIGLYCERIDES LEVEL 194 MG/DL (<150)
== END ==
LOC: M SFHCLERA 08:54
DX: I10 Essential (primary) hypertension (principal); R00.0 Tachycardia, unspecified; E78.2 Mixed hyperlipidemia

== ENCOUNTER → 2017-07-31 | Outpatient (REF) | payer BC | LOC: M SFHCLERA 15:17 | DX: R39.9 Unspecified symptoms and signs involving the genitourinary system (principal) ==

== ENCOUNTER 2017-09-06 16:22 | Emergency (ER) | payer BC ==
[2017-09-06 17:43] LABS: HEMATOCRIT 38.5 % (36.0-47.0); HEMOGLOBIN 12.8 g/dl (12.0-16.0); MEAN CORPUSCULAR HEMOGLOBIN 28.6 pg (27.0-33.0); MEAN CORPUSCULAR HGB CONC 33.2 g/dl (32.0-36.5); MEAN CORPUSCULAR VOLUME 85.9 fl (80.0-96.0); PLATELET COUNT, AUTOMATED 358 10^3/uL (150-450); RED BLOOD COUNT 4.48 10^6/uL (4.00-5.40); RED CELL DISTRIBUTION WIDTH 12.6 % (11.5-14.5); WHITE BLOOD COUNT 8.9 10^3/uL (4.0-10.0)
[2017-09-06 18:02] LABS: AMPHETAMINES LEVEL URINE NEGATIVE (NEGATIVE); BARBITURATES URINE NEGATIVE (NEGATIVE); BENZODIAZEPINES URINE NEGATIVE (NEGATIVE); CANNABINOIDS URINE NEGATIVE (NEGATIVE); COCAINE METABOLITE URINE NEGATIVE (NEGATIVE); METHADONE URINE NEGATIVE (NEGATIVE); OPIATES URINE NEGATIVE (NEGATIVE); PHENCYCLIDINE URINE NEGATIVE (NEGATIVE)
[2017-09-06 18:14] LABS: ACETAMINOPHEN LEVEL < 2.0 UG/ML (10.0-30.0); ALBUMIN 4.4 GM/DL (3.2-5.2); ALKALINE PHOSPHATASE 124 U/L (45-117); ALT/SGPT 20 U/L (12-78); ANION GAP 7 MEQ/L (8-16); AST/SGOT 13 U/L (7-37); BILIRUBIN,DIRECT < 0.1 MG/DL (0.0-0.2); BILIRUBIN,TOTAL 0.2 MG/DL (0.2-1.0); BLOOD UREA NITROGEN 15 MG/DL (7-18); CALCIUM LEVEL 9.7 MG/DL (8.5-10.1); CARBON DIOXIDE LEVEL 28 MEQ/L (21-32); CHLORIDE LEVEL 105 MEQ/L (98-107); GLOMERULAR FILTRATION RATE > 60.0 (>51); GLUCOSE, FASTING 95 MG/DL (70-100); POTASSIUM SERUM 4.3 MEQ/L (3.5-5.1); SALICYLATE LEVEL 3.3 MG/DL (5.0-30.0); SODIUM LEVEL 140 MEQ/L (136-145); TOTAL PROTEIN 8.4 GM/DL (6.4-8.2)
[2017-09-06 18:19] LABS: ETHYL ALCOHOL (ETHANOL) < 0.003 % (0.000-0.010)
== END 2017-09-06 18:59 | disposition home or self-care (01) ==
LOC: M ED 16:22
DX: F32.9 Major depressive disorder, single episode, unspecified (principal); I10 Essential (primary) hypertension; G89.29 Other chronic pain; Z87.891 Personal history of nicotine dependence; Z79.899 Other long term (current) drug therapy
CPT/HCPCS: G0480

== ENCOUNTER → 2017-11-08 | Outpatient (REF) | payer BC ==
[2017-11-08 18:25] LABS: CHLAMYDIA DNA AMPLIFICATION NEGATIVE (NEGATIVE); GC DNA AMPLIFICATION NEGATIVE (NEGATIVE)
== END ==
LOC: M SFHCLERA 12:00
DX: R30.0 Dysuria (principal)
CPT/HCPCS: 87086

== ENCOUNTER 2017-12-15 09:03 | Emergency (ER) | payer BC ==
[2017-12-15] MEDS: ONDANSETRON 4 MG ORAL DISINTEGRATING TAB (Q0162 PER 1MG) PO (10:54)
== END 2017-12-15 11:07 | disposition home or self-care (01) ==
LOC: M ED 09:03
DX: S16.1XXA Strain of muscle, fascia and tendon at neck level, initial encounter (principal); M62.830 Muscle spasm of back; X50.9XXA Other and unspecified overexertion or strenuous movements or postures, initial encounter; Y92.9 Unspecified place or not applicable; Y93.89 Activity, other specified; Y99.9 Unspecified external cause status; Z87.891 Personal history of nicotine dependence; Z79.899 Other long term (current) drug therapy
CPT/HCPCS: Q0162

== ENCOUNTER → 2018-05-24 | Outpatient (CLI) | payer BC | LOC: M RAD 14:10 | DX: Z12.2 Encounter for screening for malignant neoplasm of respiratory organs (principal); Z87.891 Personal history of nicotine dependence | CPT/HCPCS: G0297 ==

== ENCOUNTER → 2018-10-18 | Outpatient (CLI) | payer BC ==
[~2018-10-18] MED LIST changes: +AMLO5TAB6; +CYCL10TA PO; +GABA-843; +HYDR-3713; +TRAM50TA2
== END ==
LOC: M SLEEP HO 11:27
PROVIDERS: ATTEND Internal Medicine Cardiovascular Disease
DX: R06.83 Snoring (principal)

== ENCOUNTER → 2019-06-13 | Outpatient (REF) | payer BC | LOC: M SMT 14:05 | PROVIDERS: ATTEND Advanced Practice Midwife | DX: Z12.4 Encounter for screening for malignant neoplasm of cervix (principal) | CPT/HCPCS: 87624; G0123 ==

== ENCOUNTER → 2019-07-06 | Outpatient (CLI) | payer BC ==
--- NOTE | 2019-07-06 15:11 | REP ---
Clinical: Lung screening. History smoking. Comparison: 05/24/2018 Technique: Axial low-dose noncontrast images from the thoracic inlet to the upper abdomen using lung screening technique. Findings: The lung zhou are well-aerated. No consolidation, significant nodule or mass lesion is appreciated. No pleural effusion/reaction or pneumothorax. Tracheobronchial tree is patent. Mediastinum demonstrates mild atherosclerotic changes of the coronary arteries without cardiomegaly. Impression: Lung-RADS category I. No nodule or suspicious abnormality. Electronically Signed by Miko Ma MD 07/06/2019 03:02 P
== END ==
LOC: M RAD 14:28
PROVIDERS: ATTEND Family Medicine
DX: Z12.2 Encounter for screening for malignant neoplasm of respiratory organs (principal); Z87.891 Personal history of nicotine dependence; I25.10 Atherosclerotic heart disease of native coronary artery without angina pectoris

== ENCOUNTER → 2020-04-05 | Outpatient (REF) | payer BC ==
[~2020-04-05] MED LIST changes: +AMLO1TAB24; -AMLO5TAB6; +CYCL-707 PO; -CYCL10TA PO
[2020-04-05 12:30] LABS: HEMATOCRIT 37.4 % (36.0-47.0); MEAN CORPUSCULAR HEMOGLOBIN 28.5 pg (27.0-33.0); MEAN CORPUSCULAR HGB CONC 32.1 g/dl (32.0-36.5); MEAN CORPUSCULAR VOLUME 88.8 fl (80.0-96.0); PLATELET COUNT, AUTOMATED 344 10^3/uL (150-450); RED BLOOD COUNT 4.21 10^6/uL (4.00-5.40); WHITE BLOOD COUNT 6.3 10^3/uL (4.0-10.0)
[2020-04-05 13:06] LABS: ALBUMIN 3.8 GM/DL (3.2-5.2); ALT/SGPT 29 U/L (12-78); BILIRUBIN,TOTAL 0.3 MG/DL (0.2-1.0); BLOOD UREA NITROGEN 25 MG/DL (7-18); CALCIUM LEVEL 9.6 MG/DL (8.5-10.1); CARBON DIOXIDE LEVEL 31 MEQ/L (21-32); CHLORIDE LEVEL 103 MEQ/L (98-107); CHOLESTEROL LEVEL 250 MG/DL (<200); CHOLESTEROL RISK RATIO 3.968 (<5); CREATININE FOR GFR 0.97 MG/DL (0.55-1.30); FREE T4 0.69 NG/DL (0.76-1.46); GLOMERULAR FILTRATION RATE > 60.0 (>51); GLUCOSE, FASTING 89 MG/DL (70-100); HDL CHOLESTEROL 63 MG/DL (>40); LDL CHOLESTEROL 151 MG/DL (<100); NON-HDL-C 187 MG/DL; POTASSIUM SERUM 4.8 MEQ/L (3.5-5.1); SODIUM LEVEL 138 MEQ/L (136-145); TOTAL PROTEIN 7.5 GM/DL (6.4-8.2); TRIGLYCERIDES LEVEL 179 MG/DL (<150)
== END ==
LOC: M SFHCCLAY 11:42
PROVIDERS: ATTEND Family Medicine
DX: Z00.00 Encounter for general adult medical examination without abnormal findings (principal); R53.83 Other fatigue; E78.49 Other hyperlipidemia; I11.9 Hypertensive heart disease without heart failure

== ENCOUNTER → 2020-04-10 | Outpatient (REF) | payer BC ==
[2020-04-10 17:57] LABS: % LABILE ALKALINE PHOSPHATASE 59.7 %
== END ==
LOC: M SFHCCLAY 10:21
PROVIDERS: ATTEND Family Medicine
DX: R74.8 Abnormal levels of other serum enzymes (principal)

== ENCOUNTER → 2020-06-24 | Outpatient (REF) | payer BC ==
[2020-06-24 17:22] LABS: FREE T4 1.18 NG/DL (0.76-1.46); THYROID STIMULATING HORMONE 0.007 uIU/ML (0.358-3.740)
== END ==
LOC: M SFHCCLAY 11:56
PROVIDERS: ATTEND Family Medicine
DX: E03.9 Hypothyroidism, unspecified (principal)

== ENCOUNTER → 2020-06-24 | Outpatient (REF) | payer BC ==
[2020-06-24 17:16] LABS: ALBUMIN 3.7 GM/DL (3.2-5.2); ALT/SGPT 32 U/L (12-78); BILIRUBIN,TOTAL 0.2 MG/DL (0.2-1.0); BLOOD UREA NITROGEN 19 MG/DL (7-18); CALCIUM LEVEL 9.5 MG/DL (8.5-10.1); CARBON DIOXIDE LEVEL 28 MEQ/L (21-32); CHLORIDE LEVEL 102 MEQ/L (98-107); CREATININE FOR GFR 0.94 MG/DL (0.55-1.30); GLOMERULAR FILTRATION RATE > 60.0 (>51); GLUCOSE, FASTING 97 MG/DL (70-100); POTASSIUM SERUM 4.5 MEQ/L (3.5-5.1); SODIUM LEVEL 137 MEQ/L (136-145); TOTAL PROTEIN 7.3 GM/DL (6.4-8.2)
[2020-07-02 00:06] LABS: Alkaline Phosphatase Iso-Bone 31 % (14-68); Alkaline Phosphatase Iso-Intes 0 % (0-18); Alkaline Phosphatase Iso-Liver 69 % (18-85); TOTAL ALK PHOS 145 IU/L (39-117)
== END ==
LOC: M LABDRAWC 16:13
PROVIDERS: ATTEND Internal Medicine Gastroenterology
DX: R74.8 Abnormal levels of other serum enzymes (principal)

== ENCOUNTER → 2020-07-02 | Outpatient (CLI) | payer BC ==
--- NOTE | 2020-07-02 09:12 | REP ---
INDICATION: ABN LFTS COMPARISON: None. TECHNIQUE: Real time pino scale ultrasound examination using curved array transducer. FINDINGS: Liver is normal in contour, size, and echogenicity without focal hepatic lesions identified. Pancreas is incompletely evaluated due to interposed bowel gas. The gallbladder is normal and without gallstones, wall thickening, or pericholecystic fluid. No biliary ductal dilatation is appreciated and the common bile duct measures 4.8 mm diameter. 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 Kidney measures 11.5 x 5.8 x 4.2 cm. No ascites in the visualized right upper quadrant. IMPRESSION: Essentially normal liver and right upper quadrant ultrasound. Questionable partial duplication to the right renal collecting system without hydronephrosis. <Electronically signed by Miko Ma > 07/02/20 0909
== END ==
LOC: M RAD 08:27
PROVIDERS: ATTEND Internal Medicine Gastroenterology
DX: R74.8 Abnormal levels of other serum enzymes (principal)

== ENCOUNTER → 2020-07-12 | Outpatient (REF) | payer BC | LOC: M SFHCCLAY 11:13 | PROVIDERS: ATTEND Physician Assistant | DX: R05 Cough (principal) ==

== ENCOUNTER → 2020-07-29 | Outpatient (REF) | payer BC ==
[~2020-07-29] MED LIST changes: +GABA-282; -GABA-843
== END ==
LOC: M SFHCCLAY 13:47
PROVIDERS: ATTEND Physician Assistant
DX: R30.0 Dysuria (principal)

== ENCOUNTER → 2020-08-08 | Outpatient (REF) | payer BC ==
[2020-08-08 16:19] LABS: FREE T4 1.27 NG/DL (0.76-1.46); THYROID STIMULATING HORMONE 0.005 uIU/ML (0.358-3.740)
== END ==
LOC: M SFHCCLAY 10:05
PROVIDERS: ATTEND Family Medicine
DX: E03.9 Hypothyroidism, unspecified (principal)

== ENCOUNTER → 2020-10-15 | Outpatient (CLI) | payer BC ==
--- NOTE | 2020-10-16 07:54 | REP ---
INDICATION: SCREENING FOR LUNG CA COMPARISON: 07/06/2019, 05/24/2018 TECHNIQUE: Axial noncontrast images from the thoracic inlet to the upper abdomen using low-dose lung screening technique (LDCT). FINDINGS: Lung zhou are well aerated again demonstrating minimal biapical and subtle scattered interstitial changes. No acute consolidation, significant nodule or mass. No effusion. No pneumothorax. Tracheobronchial tree is patent. IMPRESSION: Lung-RADS category 1. No suspicious nodule or mass. Management recommendations include annual low-dose CT surveillance. <Electronically signed by Miko Ma > 10/16/20 2912
== END ==
LOC: M RAD 11:20
PROVIDERS: ATTEND Family Medicine
DX: Z12.2 Encounter for screening for malignant neoplasm of respiratory organs (principal); Z87.891 Personal history of nicotine dependence

== ENCOUNTER → 2021-01-15 | Outpatient (REF) | payer BC ==
[2021-01-15 13:26] LABS: THYROID STIMULATING HORMONE 0.021 uIU/ML (0.358-3.740)
[2021-01-15 13:51] LABS: FREE T4 1.08 NG/DL (0.76-1.46)
[2021-01-15 14:16] LABS: FREE T3 3.9 PG/ML (2.2-4.0)
== END ==
LOC: M SFHCCLAY 08:38
PROVIDERS: ATTEND Family Medicine
DX: E03.9 Hypothyroidism, unspecified (principal)

== ENCOUNTER 2021-04-01 10:41 | Outpatient (RCR) | payer BC | END 2021-04-03 | LOC: M PT 10:41 | PROVIDERS: ATTEND Family Medicine | DX: M25.511 Pain in right shoulder (principal) ==

== ENCOUNTER 2021-04-15 10:45 | Outpatient (RCR) | payer BC ==
[2021-04-17] MEDS ORDERED: LEVO100T5 (12:01)
[2021-04-17] MEDS ORDERED: VALS1TAB67 (12:01)
[2021-04-17] MEDS ORDERED: OMEP-218 (12:01)
[2021-04-17] MEDS ORDERED: SOD1.479 (12:01)
== END 2021-05-04 ==
LOC: M PT 10:45
PROVIDERS: ATTEND Family Medicine
DX: M25.511 Pain in right shoulder (principal)

== ENCOUNTER 2021-04-17 11:31 | Emergency (ER) | payer OTHER, BC ==
[~2021-04-17] VITALS: Ht 170.2 cm; Wt 84.1 kg
[2021-04-17 11:32] VITALS: BP 133/61
--- OUTSIDE RECORDS SUMMARY | 2021-04-17 11:41 | CCD | Continuity of Care Document ---
Author Author Ro TORRES M.D. Organization Unknown Address [address] [place] [address] Phone [phone] Care Team Providers Care Fabrication Inspector Name Role Phone Radha Horton DO AUTM [phone] Nitin Silver AUTM [phone] Problems Active Problems Provider Date Constipation Srinivasa Torres M.D. Onset: 04/08/20 21 Social History Type Date Description Comments Sex Unknown ETOH Use Denies alcohol use Tobacco Use Start: Unknown End: Unknown Patient is a former smoker QUIT 2013 Allergies and adverse reactions Description No Known Drug Allergies Medications Active Medications SIG Qnty Indications Ordering Provide r Date Sutab [id number] Tablets as directed 1box Srinivasa Torres M.D. 04/08/2021 Hydrocodone-Acetaminophen 5-325mg Tablets Take One Tablet By Mouth Twice A Day as Needed Maximum Daily Dose Two Tablets Unknown Rosuvastatin Calcium 10mg Tablets Take One Tablet By Mouth AT Bedtime Unknown Valsartan 160mg Tablets Radha Horton DO Amlodipine Besylate 5mg Tablets Take One Tablet Once A Day By Mouth Unknown Tramadol HCL 50mg Tablets Take One Tablet By Mouth Every 6 Hours Maximum Daily Dose Four Tablets Unknown Levothyroxine Sodium 125mcg Tablet s Take One Tablet By Mouth Every Morning On Empty Stomach Unknown Tizanidine HCL 2mg Tablets Take One Tablet By Mouth Three Times A Day as Needed Unknown Immunizations Description No Information Available Vital Signs Date Vital Result Comment 04/08/2021 9:50am Height 67.5 inches 5'7.50" Weight 190.00 lb BP Systolic 136 mmHg BP Diastolic 79 mmHg Heart Rate 72 /min BMI (Body Mass Index) 29.3 kg/m2 Weight 86.184 kg Body Temperature 97.3 F 06/18/2020 2:39pm Height 67.5 inches 5'7.50" Weight 186.00 lb BP Systolic 133 mmHg BP Diastolic 78 mmHg Heart Rate 71 /min BMI (Body Mass Index) 28.7 kg/m2 Weight 84.370 kg Body Temperature 97.3 F Results Description No Information Available Procedures Description No Information Available Medical Devices Description No Information Available Encounters Description No Information Available Assessments Date Code Description Provider 04/08/2021 Z12.11 Screening for malignant neoplasm of colon Srinivasa Torres M.D. 04/08/2021 R94.5 Abnormal results of liver functi on studies Srinivasa Torres M.D. Plan of Treatment Future Appointment(s):* 05/13/2021 8:30 am - [facility] at Main Office * 05/26/2021 2:45 pm - Srinivasa Torres M.D. at Main Office 04/08/2021 - Srinivasa Torres M.D.* Z12.11 Screening for malignant neoplasm of colon* New Labs:* CMP, Ordered: 04/08/21 * Mitochondrial Antibody, Ordered: 04/08/21 * Comments:* 61 yo wf who presents for a screening colonoscopy due to a h/o anal leakage. No c/o abdominal pain, weight loss, change in bowel habits, or rectal bleeding. No family h/o colon cancer. No h/o chest pain, or sob. Plan:1.Schedule patient for a colonoscopy.2.Informed consent given to the patient.3.Pt. advised to stop aspirin,plavix, and anticoagulants at least 3 to 7 days prior to the procedure. * R94.5 Abnormal results of liver function studies* New Labs:* CMP, Ordered: 04/08/21 * Mitochondrial Antibody, Ordered: 04/08/21 * Comments:* Labs to check her abnormal liver functions. Functional Status Description No Information Available Mental Status Description No Information Available Referrals Description No Information Available
--- OUTSIDE RECORDS SUMMARY | 2021-04-17 11:41 | CCD | Continuity of Care Document ---
Author Author Ro TORRES M.D. Organization Unknown Address [address] [place] [address] Phone [phone] Care Team Providers Care Lockstitch Lining Maker Name Role Phone Radha Horton DO AUTM [phone] Nitin Silver AUTM [phone] Problems Active Problems Provider Date Constipation Srinivasa Torres M.D. Onset: 04/08/20 21 Social History Type Date Description Comments Sex Unknown ETOH Use Denies alcohol use Tobacco Use Start: Unknown End: Unknown Patient is a former smoker QUIT 2013 Allergies and adverse reactions Description No Known Drug Allergies Medications Active Medications SIG Qnty Indications Ordering Provide r Date Sutab [id number] Tablets as directed 1box Srinivasa Torres M.D. [...] F Results Description No Information Available Procedures Date Code Description Status 04/08/2021 54536 Office/Outpatient Established Mo d MDM 30-39 Min Completed Medical Devices Description No Information Available Encounters Type Date Location Provider Dx Diagnosis Office Visit 04/08/2021 9:45a Main Office Srinivasa Torres M.D. Z 12.11 Encounter for screening for malignant neoplasm of colon R94.5 Abnormal results of liver fu nction studies Assessments Date Code Description Provider 04/08/2021 Z12.11 [...]
--- OUTSIDE RECORDS SUMMARY | 2021-04-17 11:42 | CCD ---
Author Author [facility] [employer] Sy[employer] Organization [facility] [employer] [facility] Syst ems Address Unknown Phone Unavailable Care Team Providers Care Therapy Tech Name Role Phone Radha Horton Unavailable PROBLEMS Type Condition ICD9-CM Code [id number] Code Onset Dates Condition S tatus W/U Status Risk SNOMED Code Notes Problem Chronic pain syndrome G89.4 Active confirmed 910538821 Problem Urinary incontinence, mixed N39.46 Active confirmed 345713096 Problem Mixed hyperlipidemia E78.2 Active confirmed 566010594 Problem Spondylosis of cervical 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 M47.812 Active confirmed 953565664 Problem Myalgia M79.1 Active confirmed 42771949 Problem Allergic rhinitis, unspecified seasonality, unspecifie d trigger J30.9 Active confirmed 60835348 Problem Acquired hypothyroidism E03.9 Active confirmed 194996412 Problem Cervicalgia M54.2 Active confirmed 23290730 Problem Gastroesophageal reflux dise ase, unspecified whether esophagitis present K21.9 Active confirmed 291566644 Problem Degenerative disc disease, cervical M50.30 Acti ve confirmed 60606347 Problem Other chronic pain G89.29 Active confirmed 8 8549467 Problem Pain in left knee M25.562 Active confirmed 3 [id number] Problem Pain in right knee M25.561 Active confirmed 36028693 Problem Hypertensive heart disease without heart failure I 11.9 Active confirmed 92064051 ALLERGIES Allergen (clinical drug ingredient) Drug/Non Drug Allergy do cumented on EMR Reaction Allergy Type Onset Date Status Cymbalta Unknown Drug Allergy Active environmental nasal congestion, eye irritation Non Drug Al lergy Active cats eye irritation, sneezing Non Drug Allergy Active ENCOUNTERS from 1962 to 2021-03-19 Encounter Location Date Provider Diagnosis [facility] [place] [address] [phone] [place] [address] 14 Mar, 2021 Radha Horton Pain of right shoulder region M25.511 ; Skin change R23.9 and Scalp cyst L72.9 IMMUNIZATIONS Vaccine Route Administration Date Status TDAP Unknown January 16, 2014 Administered Influenza 6mo & up Fluzone Unknown Jul 09, 2017 Other s Influenza 6mo & up Fluzone IM Intramuscular Aug 15, 2015 Admi nistered Influenza 6mo & up Fluzone IM Intramuscular Jul 02, 2014 Admi nistered SOCIAL HISTORY Tobacco Use: Social History Observation Description Date Details (start date - stop date) Former Smoker Sex Assigned At : Social History Observation Description Sex Assigned At Unknown Education: Question Answer Notes Level of Education: Professional Schools/Masters/PhD Audit Question Answer Notes Total Score: 0 Interpretation: Alcohol Education Sexual Hx: Question Answer Notes Had sex in the last 12 months (vaginal, oral, or anal)? No Have you ever had an STD? No Drug and Alcohol Question Answer Notes Total Score: 0 Interpretation: No problems reported Alcohol Screening: Question Answer Notes Did you have a drink containing alcohol in the past year? No Points 0 Interpretation Negative BMI Care Goal Follow-Up Question Answer Notes Above Normal BMI Follow-Up Dietary management educatio n, guidance, and counseling, Dietary needs education Tobacco Use: Question Answer Notes Are you a: former smoker Quit November 2011 How long has it been since you last smoked? 5-10 years 1ppd for 30-40 years REASON FOR REFERRAL from 1962 to 2021-03-19 Reason 61-year-old female with area of skin change and scalp cyst. Please evaluate and treat Diagnosis 1 Scalp cyst (L72.9) Diagnosis 2 Skin change (R23.9) Referral Organization [facility] [place] Referring Provider First Name Radha Referring Provider Last Name Clifford Referring Provider Specialty Family Medicine Referred Provider [facility] Nurse,Practioners Referred Provider Specialty Dermatology Referral Priority Routine General Notes Radha Horton DO 2020 12:13:56 PM > Patient with area of skin change management director right shoulder that is likely a seborrheic keratosis. She also has a likely cyst behind her left ear that is growing in size. Referral for further evaluation, treatment. Please evaluate and treatFadia NelsonJEAN-CLAUDE 03/19/2021 8:16:14 AM > referral sent Reason 61-year-old female with shou lder pain. Please evaluate and treat Diagnosis 1 Pain of right shoulder jose cardona (M25.511) Referral Organization [facility] Referring Provider First Name Radha Referring Provider Last Name Clifford Referring Provider Specialty Family Medicine Referred Provider [facility],Physical Therapy ([place]) Referred Provider Specialty Physical Therapist Referral Priority Routine General Notes Fadia Nelson JEAN-CLAUDE 021 8:16:43 AM > referral sent VITAL SIGNS Weight 189 lbs Mar, Weight-kg 85.73 kg Mar, Height 67 in Mar, BMI 29.60 kg/m2 Mar, Heart Rate 82 /min Mar, Respiratory Rate 18 /min Mar, Temperature 98.1 degrees Fahrenheit Mar, Oximetry 96% ra Mar, Blood pressure systolic 135 mm Hg Mar, Blood pressure diastolic 86 mm Hg Mar, MEDICATIONS Medication SIG (Take, Route, Frequency, Duration) Notes Start Da te End Date Status Macrobid 100 MG 1 capsule at bedtime with food Orally bid for 5 day(s) Jul, Not-Taking Rosuvastatin Calcium 10 MG 1 tablet Orally Once a day for 90 days Active Valsartan 160 MG 1 tablet Orally Once a day for 90 day(s) Active MiraLax 17 GM 1 packet mixed with 8 ounces of fluid Orally Once a day for 10 day(s) Feb, Active traMADol HCl 50 MG 1 tablet as needed Orally every 6 hrs MDD=4 f or 30 days Mar, Active Levothyroxine Sodium 100 MCG 1 tablet in the morning o n an empty stomach Orally Once a day for 90 day(s) Aug, Active Fluticasone Propionate 50 MCG/ACT 2 spray in each nost ril Nasally Once a day for 30 Days Feb, Active Zofran ODT 4 MG 1 tablet on the tongue and a llow to dissolve for 2 doses Orally every 8 hrs prn nausea for 15 days May, Active Lidoderm 5 % 1 patch remove after 12 hours Externally Once a day for 30 days Mar, Active tiZANidine HCl 2 MG 1 tablet as needed Orally Three times a day for 90 day(s) Apr, Active HYDROcodone-Acetaminophen 5-325 MG 1 tablet as needed Orally bid prn MDD=2 for 30 days PRN 17 Feb, 2021 Active Omeprazole 20 MG 1 capsule 30 minutes before morning meal Orally Once a day for 90 days Feb, Active Augmentin 875-125 MG 1 tablet Orally every 12 hrs for 7 day(s) Jul, Not-Taking amLODIPine Besylate 5 MG 1 tablet Orally Once a day for 90 days Active PROCEDURES No Information RESULTS No Results REASON FOR VISIT right shoulder pain MEDICAL (GENERAL) HISTORY Type Description Date Medical History Chronic neck and shoulder pain Medical History 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 3 ribs 01/2018 Goals Section No Information Health Concerns No Information MEDICAL EQUIPMENT No Information MENTAL STATUS No Information FUNCTIONAL STATUS No Information ASSESSMENTS Encounter Date Diagnosis Assessment Notes Treatment Notes Treatm ent Clinical Notes Mar, Skin change (ICD-10 - R23.9) Patient with area of skin change that is likely seborrheic keratosis. Patient will be referred to dermatology for further evaluation. Mar, Pain of right shoulder region (ICD-10 - M25.511) Patient will be prescribed Lidoderm patches and a referral has been placed to physical therapy. Mar, Scalp cyst (ICD-10 - L72.9) Patient will be referred to dermatology to discuss removal. Mar, Other Istop: [id number] PLAN OF TREATMENT Medication Medication Name Sig Start Date Stop Date traMADol HCl 50 MG 1 tablet as needed Orally every 6 hrs MD D=4 for 30 days Mar, Omeprazole 20 MG 1 capsule 30 minutes before morning meal Orally Once a day for 90 days Feb, amLODIPine Besylate 5 MG 1 tablet Orally Once a day for 90 days Lidoderm 5 % 1 patch remove after 12 hours Externally Once a day for 30 days Mar, Treatment Notes Assessment Notes Clinical Notes Skin change Patient with area of skin change that is likely seborrheic keratosis. Patient will be referred to dermatology for further evaluation. Pain of right shoulder region Patient wi ll be prescribed Lidoderm patches and a referral has been placed to physical therapy. Scalp cyst Patient will be refe rred to dermatology to discuss removal. Referrals Referral Date Details 61-year-old female with area of skin change and scalp cyst. Please evaluate and treat, Practioners [facility] Nurse 61-year-old female with shou lder pain. Please evaluate and treat, Physical Therapy ([place] Appt Details as scheduled Reason: Provider Name:Radha Horton, 2021-04 02:30:00 PM, [address], , [place], [address], Insurance Providers Payer Name Payer Address Payer Phone Insured Name Patient Relati onship to Insured Coverage Start Date Coverage End Date BCBS CHRISTOPH SRIVASTAVA PPO [id number] [facility] [employer] [place] [address] YASHIRA CAZARES self
--- OUTSIDE RECORDS SUMMARY | 2021-04-17 11:42 | CCD ---
Author Author [facility] [employer] Organization [facility] [employer] [facility] Syst ems Address Unknown Phone Unavailable Care Team Providers Care Electronics Technician Name Role Phone Radha Horton Unavailable PROBLEMS Type Condition ICD9-CM Code [id number] Code Onset Dates Condition S tatus W/U Status Risk SNOMED Code Notes Problem Chronic pain syndrome G89.4 Active confirmed 566683322 Problem Urinary incontinence, mixed N39.46 Active confirmed 627842656 Problem Mixed hyperlipidemia E78.2 Active confirmed 482925097 Problem Spondylosis of cervical 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 M47.812 Active confirmed 024805078 Problem Myalgia M79.1 Active confirmed 19846098 Problem Allergic rhinitis, unspecified seasonality, unspecifie d trigger J30.9 Active confirmed 06118447 Problem Acquired hypothyroidism E03.9 Active confirmed 048519097 Problem Cervicalgia M54.2 Active confirmed 47202960 Problem Gastroesophageal reflux dise ase, unspecified whether esophagitis present K21.9 Active confirmed 265780126 Problem Degenerative disc disease, cervical M50.30 Acti ve confirmed 80865492 Problem Other chronic pain G89.29 Active confirmed 8 7212060 Problem Pain in left knee M25.562 Active confirmed 3 79271140348307 Problem Pain in right knee M25.561 Active confirmed 09340043 Problem Hypertensive heart disease without heart failure I 11.9 Active confirmed 54244517 ALLERGIES Allergen (clinical drug ingredient) Drug/Non Drug Allergy do cumented on EMR Reaction Allergy Type Onset Date Status Cymbalta Unknown Drug Allergy Active environmental nasal congestion, eye irritation Non Drug Al lergy Active cats eye irritation, sneezing Non Drug Allergy Active ENCOUNTERS from 1962 to 2021-02-10 Encounter Location Date Provider Diagnosis [facility] Aaron TELLEZ [phone] [place] [address] Feb, [place] Spondylosis of cervical region without m yelopathy or radiculopathy M47.812 IMMUNIZATIONS Vaccine Route Administration Date Status TDAP [...] 1ppd for 30-40 years REASON FOR REFERRAL No Information VITAL SIGNS No information MEDICATIONS Medication SIG (Take, Route, Frequency, Duration) Notes Start Da te End Date Status tiZANidine HCl 2 MG 1 tablet as needed Orally Three times a day for 90 day(s) Apr, Active Augmentin 875-125 MG 1 tablet Orally every 12 hrs for 7 day(s) Jul, Not-Taking Rosuvastatin Calcium 10 MG 1 tablet Orally Once a day for 90 days Active Fluticasone Propionate 50 MCG/ACT 2 spray in each nostril Nasall y Once a day Feb, Not-Taking Macrobid 100 MG 1 capsule at bedtime with food Orally bid for 5 day(s) Jul, Not-Taking traMADol HCl 50 MG 1 tablet as needed Orally every 6 hrs MDD=4 f or 30 days Feb, Active Zofran ODT 4 MG 1 tablet on the tongue and a llow to dissolve for 2 doses Orally every 8 hrs prn nausea for 15 days May, Active Levothyroxine Sodium 100 MCG 1 tablet in the morning o n an empty stomach Orally Once a day for 90 day(s) Aug, Active Omeprazole 20 MG 1 capsule 30 minutes before morning meal Orally Once a day for 30 day(s) Feb, Active amLODIPine Besylate 5 MG 1 tablet Orally Once a day for 90 days Active MiraLax 17 GM 1 packet mixed with 8 ounces of fluid Orally Once a day for 10 day(s) Feb, Active HYDROcodone-Acetaminophen 5-325 MG 1 tablet as needed Orally bid prn MDD=2 for 30 days PRN Jan, Active Valsartan 160 MG 1 tablet Orally Once a day for 90 day(s) Active PROCEDURES No Information RESULTS No Results REASON FOR VISIT med refill MEDICAL (GENERAL) HISTORY Type Description Date Medical [...] AB 44 y/o Surgical History Shoulder x2 1995, 1997 Hospitalization History Childbirth 1987 Hospitalization History Surgery related Hospitalization History [facility] 3 ribs 01/2018 Goals Section No Information Health Concerns No Information MEDICAL EQUIPMENT No Information MENTAL STATUS No Information FUNCTIONAL STATUS No Information ASSESSMENTS Encounter Date Diagnosis Assessment Notes Treatment Notes Treatm ent Clinical Notes Feb, Spondylosis of cervical [place] on without myelopathy or radiculopathy (ICD-10 - M47.812) PLAN OF TREATMENT Medication Medication Name Sig Start Date Stop Date MiraLax 17 GM 1 packet mixed with 8 ounces of fluid Orally Once a day for 10 day(s) Feb, traMADol HCl 50 MG 1 tablet as needed Orally every 6 hrs MD D=4 for 30 days Feb, Omeprazole 20 MG 1 capsule 30 minutes before morning meal Orally Once a day for 30 day(s) Feb, Next Appt Details Provider Name:Radha Horton, 2021-04 02:30:00 PM, JulioVinod T[address], , [place], [address], Insurance Providers Payer Name Payer Address Payer Phone Insured Name Patient Relati onship to Insured Coverage Start Date Coverage End Date [facility] [place] [facility] [id number] [facility] [place] [facility] [place] [address] YASHIRA CAZARES self
--- OUTSIDE RECORDS SUMMARY | 2021-04-17 11:42 | CCD ---
Author Author [facility] [employer] Organization [facility] [employer] [facility] [employer] Address Unknown Phone Unavailable Care Team Providers Care Damaged Freight Inspector Name Role Phone Radha Horton Unavailable PROBLEMS Type Condition ICD9-CM Code [id number] Code Onset Dates Condition S tatus W/U Status Risk SNOMED Code Notes Problem Chronic pain syndrome G89.4 Active confirmed 796732078 Problem Urinary incontinence, mixed N39.46 Active confirmed 381577076 Problem Mixed hyperlipidemia E78.2 Active confirmed 508530019 Problem Spondylosis of cervical 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 M47.812 Active confirmed 141057957 Problem Myalgia M79.1 Active confirmed 00070471 Problem Allergic rhinitis, unspecified seasonality, unspecifie d trigger J30.9 Active confirmed 51816306 Problem Acquired hypothyroidism E03.9 Active confirmed 767297599 Problem Cervicalgia M54.2 Active confirmed 46742600 Problem Gastroesophageal reflux dise ase, unspecified whether esophagitis present K21.9 Active confirmed 271590708 Problem Degenerative disc disease, cervical M50.30 Acti ve confirmed 91424619 Problem Other chronic pain G89.29 Active confirmed 8 9734589 Problem Pain in left knee M25.562 Active confirmed 3 31481486574932 Problem Pain in right knee M25.561 Active confirmed 00781164 Problem Hypertensive heart disease without heart failure I 11.9 Active confirmed 40649276 ALLERGIES Allergen (clinical drug ingredient) Drug/Non Drug Allergy do cumented on EMR Reaction Allergy Type Onset Date Status Cymbalta Unknown Drug Allergy Active environmental nasal congestion, eye irritation Non Drug Al lergy Active cats eye irritation, sneezing Non Drug Allergy Active ENCOUNTERS from 1960 to 2021-03-17 Encounter Location Date Provider Diagnosis [facility] Aaron OLMSTEAD [phone] [place] [address] Mar, Radha Horton IMMUNIZATIONS Vaccine Route Administration Date Status TDAP [...] Notes Start Da te End Date Status traMADol HCl 50 MG 1 tablet as needed Orally every 6 hrs MDD=4 f or 30 days Feb, Active tiZANidine HCl 2 MG 1 tablet as needed Orally Three times a day for 90 day(s) Apr, Active Augmentin 875-125 MG 1 tablet Orally every 12 hrs for 7 day(s) Jul, Not-Taking amLODIPine Besylate 5 MG 1 tablet Orally Once a day for 90 days Active Rosuvastatin Calcium 10 MG 1 tablet Orally Once a day for 90 days Active Levothyroxine Sodium 100 MCG 1 tablet in the morning o n an empty stomach Orally Once a day for 90 day(s) Aug, Active MiraLax 17 GM 1 packet mixed with 8 ounces of fluid Orally Once a day for 10 day(s) Feb, Active Valsartan 160 MG 1 tablet Orally Once a day for 90 day(s) Active Omeprazole 20 MG 1 capsule 30 minutes before morning meal Orally Once a day for 30 day(s) Feb, Active HYDROcodone-Acetaminophen 5-325 MG 1 tablet as needed Orally bid prn MDD=2 for 30 days PRN Feb, Active Fluticasone Propionate 50 MCG/ACT 2 spray in each nost ril Nasally Once a day for 30 Days Feb, Active Macrobid 100 MG 1 capsule at bedtime with food Orally bid for 5 day(s) Jul, Not-Taking Zofran ODT 4 MG 1 tablet on the tongue and a llow to dissolve for 2 doses Orally every 8 hrs prn nausea for 15 days May, Active PROCEDURES No Information RESULTS No Results [...] No Information FUNCTIONAL STATUS No Information ASSESSMENTS No Information PLAN OF TREATMENT Medication Medication Name Sig Start Date Stop Date HYDROcodone-Acetaminophen 5-325 MG 1 tablet as needed Orally bid prn MDD=2 for 30 days Feb, Valsartan 160 MG 1 tablet Orally Once a day for 90 day(s) MiraLax 17 GM 1 packet mixed with 8 ounces of fluid Orally Once a day for 10 day(s) Feb, traMADol HCl 50 MG 1 tablet as needed Orally every 6 hrs MD D=4 for 30 days Feb, Fluticasone Propionate 50 MCG/ACT 2 spray in each nost ril Nasally Once a day for 30 Days Feb, Levothyroxine Sodium 100 MCG 1 tablet in the morning o n an empty stomach Orally Once a day for 90 day(s) Aug, Omeprazole 20 MG 1 capsule 30 minutes before morning meal Orally Once a day for 30 day(s) Feb, Next Appt Details Provider Name:Radha Robbinsamado, 2021-03 10:30:00 AM, [address] , , [place], [address], Provider Name:Radha Horton, 2021-04 02:30:00 PM, [address] , , [place], [address], Insurance Providers Payer Name Payer Address Payer Phone Insured Name Patient Relati onship to Insured Coverage Start Date Coverage End Date BCSTEFANY SRIVASTAVA PPO [phone] [facility] [employer]X [facility] [place] [address] YASHIRA CAZARES self
--- OUTSIDE RECORDS SUMMARY | 2021-04-17 11:42 | CCD ---
Author Author [facility] [employer] Organization [facility] [employer] Address Unknown Phone Unavailable Care Team Providers Care Blow Molding Machine Operator Name Role Phone Nitin Silver Unavailable PROBLEMS Type Condition ICD9-CM Code [id number] Code Onset Dates Condition S tatus W/U Status Risk SNOMED Code Notes Problem Chronic pain syndrome G89.4 Active confirmed 233262628 Problem Urinary incontinence, mixed N39.46 Active confirmed 278226501 Problem Mixed hyperlipidemia E78.2 Active confirmed 526724683 Problem Spondylosis of cervical 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 M47.812 Active confirmed 254250732 Problem Myalgia M79.1 Active confirmed 84334727 Problem Allergic rhinitis, unspecified seasonality, unspecifie d trigger J30.9 Active confirmed 60551174 Problem Acquired hypothyroidism E03.9 Active confirmed 759152203 Problem Cervicalgia M54.2 Active confirmed 17125492 Problem Gastroesophageal reflux dise ase, unspecified whether esophagitis present K21.9 Active confirmed 321312218 Problem Degenerative disc disease, cervical M50.30 Acti ve confirmed 19727945 Problem Other chronic pain G89.29 Active confirmed 8 0563417 Problem Pain in left knee M25.562 Active confirmed 3 25340867636007 Problem Pain in right knee M25.561 Active confirmed 85093197 Problem Hypertensive heart disease without heart failure I 11.9 Active confirmed 92619721 ALLERGIES Allergen (clinical drug ingredient) Drug/Non Drug Allergy do cumented on EMR Reaction Allergy Type Onset Date Status Cymbalta Unknown Drug Allergy Active environmental nasal congestion, eye irritation Non Drug Al lergy Active cats eye irritation, sneezing Non Drug Allergy Active ENCOUNTERS from 1960 to 2021-02-07 Encounter Location Date Provider Diagnosis [facility] Aaron TELLEZ [phone] [place] [address] Feb, Nitin Silver IMMUNIZATIONS Vaccine Route Administration Date Status TDAP [...] Notes Start Da te End Date Status amLODIPine Besylate 5 MG 1 tablet Orally Once a day for 90 days Active Fluticasone Propionate 50 MCG/ACT 2 spray in each nostril Nasall y Once a day Feb, Not-Taking Macrobid 100 MG 1 capsule at bedtime with food Orally bid for 5 day(s) Jul, Not-Taking Rosuvastatin Calcium 10 MG 1 tablet Orally Once a day for 90 days Active traMADol HCl 50 MG 1 tablet as needed Orally every 6 hrs MDD=4 f or 30 days Aug, Active Zofran ODT 4 MG 1 tablet on the tongue and a llow to dissolve for 2 doses Orally every 8 hrs prn nausea for 15 days May, Active tiZANidine HCl 2 MG 1 tablet as needed Orally Three times a day for 90 day(s) Apr, Active Augmentin 875-125 MG 1 tablet Orally every 12 hrs for 7 day(s) Jul, Not-Taking Omeprazole 20 MG 1 capsule 30 minutes before morning meal Orally Once a day for 30 day(s) Feb, Active Valsartan 160 MG 1 tablet Orally Once a day for 90 day(s) Active MiraLax 17 GM 1 packet mixed with 8 ounces of fluid Orally Once a day for 10 day(s) Feb, Active HYDROcodone-Acetaminophen 5-325 MG 1 tablet as needed Orally bid prn MDD=2 for 30 days PRN Jan, Active Levothyroxine Sodium 100 MCG 1 tablet in the morning o n an empty stomach Orally Once a day for 90 day(s) Aug, Active PROCEDURES No Information RESULTS No Results REASON FOR VISIT anal discharge MEDICAL (GENERAL) HISTORY Type Description Date Medical [...] Medication Name Sig Start Date Stop Date Omeprazole 20 MG 1 capsule 30 minutes before morning meal Orally Once a day for 30 day(s) Feb, MiraLax 17 GM 1 packet mixed with 8 ounces of fluid Orally Once a day for 10 day(s) Feb, Next Appt Details Provider Name:Radha Horton, 2021-04 02:30:00 PM, [address], , [place], [address], Insurance Providers Payer Name Payer Address Payer Phone Insured Name Patient Relati onship to Insured Coverage Start Date Coverage End Date BCBS CHRISTOPH SRIVASTAVA PPO [phone] [facility] [place] [facility] [id number] YASHIRA CAZARES self
--- OUTSIDE RECORDS SUMMARY | 2021-04-17 11:42 | CCD ---
Author Author [facility] [employer] Organization [facility] [employer] [facility] Syst em[facility] Address Unknown Phone Unavailable Care Team Providers Care Visual Merchandising Associate Name Role Phone Radha Horton Unavailable PROBLEMS Type Condition ICD9-CM Code [id number] Code Onset Dates Condition S tatus W/U Status Risk SNOMED Code Notes Problem Chronic pain syndrome G89.4 Active confirmed 639329894 Problem Urinary incontinence, mixed N39.46 Active confirmed 638463584 Problem Mixed hyperlipidemia E78.2 Active confirmed 390751775 Problem Spondylosis of cervical 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 M47.812 Active confirmed 353021999 Problem Myalgia M79.1 Active confirmed 84267562 Problem Allergic rhinitis, unspecified seasonality, unspecifie d trigger J30.9 Active confirmed 16461515 Problem Acquired hypothyroidism E03.9 Active confirmed 091258122 Problem Cervicalgia M54.2 Active confirmed 70495401 Problem Gastroesophageal reflux dise ase, unspecified whether esophagitis present K21.9 Active confirmed 989237563 Problem Degenerative disc disease, cervical M50.30 Acti ve confirmed 38707301 Problem Other chronic pain G89.29 Active confirmed 8 1639409 Problem Pain in left knee M25.562 Active confirmed 3 [id number] Problem Pain in right knee M25.561 Active confirmed 32919982 Problem Hypertensive heart disease without heart failure I 11.9 Active confirmed 87587304 ALLERGIES Allergen (clinical drug ingredient) Drug/Non Drug Allergy do cumented on EMR Reaction Allergy Type Onset Date Status Cymbalta Unknown Drug Allergy Active environmental nasal congestion, eye irritation Non Drug Al lergy Active cats eye irritation, sneezing Non Drug Allergy Active ENCOUNTERS from 1962 to 2021-04-02 Encounter Location Date Provider Diagnosis [facility] [place] [phone] [place] [address] Mar, [place] Schoeneman Spondylosis of cervical region without m [...] 6 hrs MDD=4 f or 30 days 14 Mar, 2021 Active Levothyroxine Sodium 100 MCG 1 tablet [...] bid prn MDD=2 for 30 days PRN Mar, Active Omeprazole 20 MG 1 capsule 30 minutes before morning meal Orally Once a day for 90 days Feb, Active Augmentin 875-125 MG 1 tablet Orally every 12 hrs for 7 day(s) Jul, Not-Taking amLODIPine Besylate 5 MG 1 tablet Orally Once a day for 90 days Active PROCEDURES No Information RESULTS No Results REASON FOR VISIT renewal MEDICAL (GENERAL) HISTORY Type Description Date Medical [...] Treatment Notes Treatm ent Clinical Notes Mar, Spondylosis of cervical oneida on without myelopathy or radiculopathy (ICD-10 - M47.812) PLAN OF TREATMENT Medication Medication Name Sig Start Date Stop Date traMADol HCl 50 MG 1 tablet as needed Orally every 6 hrs MD D=4 for 30 days Mar, Omeprazole 20 MG 1 capsule 30 minutes before morning meal Orally Once a day for 90 days Feb, Lidoderm 5 % 1 patch remove after 12 hours Externally Once a day for 30 days Mar, HYDROcodone-Acetaminophen 5-325 MG 1 tablet as needed Orally bid prn MDD=2 for 30 days Mar, amLODIPine Besylate 5 MG 1 tablet Orally Once a day for 90 days Next Appt Details Provider Name:Radha Horton, 2021-04 02:30:00 PM, [address] , , [place], [address], Insurance Providers Payer Name Payer Address Payer Phone Insured Name Patient Relati onship to Insured Coverage Start Date Coverage End Date BCBS [place] P[place] [phone] [facility] [place] [address] YASHIRA CAZARES self
--- OUTSIDE RECORDS SUMMARY | 2021-04-17 11:42 | CCD ---
Author Author [facility] [employer] Organization [facility] Syst em[facility] Address Unknown Phone Unavailable Care Team Providers Care Calker Name Role Phone Nitin Silver Unavailable PROBLEMS Type Condition ICD9-CM Code [id number] Code Onset Dates Condition S tatus W/U Status Risk SNOMED Code Notes Problem Chronic pain syndrome G89.4 Active confirmed 423848825 Problem Urinary incontinence, mixed N39.46 Active confirmed 445231107 Problem Mixed hyperlipidemia E78.2 Active confirmed 124234135 Problem Spondylosis of cervical 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 M47.812 Active confirmed 840102901 Problem Myalgia M79.1 Active confirmed 24137109 Problem Allergic rhinitis, unspecified seasonality, unspecifie d trigger J30.9 Active confirmed 66245323 Problem Acquired hypothyroidism E03.9 Active confirmed 370704299 Problem Cervicalgia M54.2 Active confirmed 98442679 Problem Gastroesophageal reflux dise ase, unspecified whether esophagitis present K21.9 Active confirmed 031625029 Problem Degenerative disc disease, cervical M50.30 Acti ve confirmed 81696513 Problem Other chronic pain G89.29 Active confirmed 8 1145084 Problem Pain in left knee M25.562 Active confirmed 3 19152415770679 Problem Pain in right knee M25.561 Active confirmed 14216483 Problem Hypertensive heart disease without heart failure I 11.9 Active confirmed 18808565 ALLERGIES Allergen (clinical drug ingredient) Drug/Non Drug Allergy do cumented on EMR Reaction Allergy Type Onset Date Status Cymbalta Unknown Drug Allergy Active environmental nasal congestion, eye irritation Non Drug Al lergy Active cats eye irritation, sneezing Non Drug Allergy Active ENCOUNTERS from 1960 to 2021-02-12 Encounter Location Date Provider Diagnosis [facility] [place] Pa[place] [address] [phone] [place] [address] Feb, Nitin Silver Drug-induced constipation K59.03 ; Anal discharge R19.8 and Gastroesophageal reflux disease, unspecified whether esophagitis present K21.9 IMMUNIZATIONS Vaccine Route Administration Date Status TDAP [...] years REASON FOR REFERRAL from 1962 to 2021-02-12 Reason Screening colonoscopy|Charity baumann has drug-induced constipation, acid reflux, and anal leakage Diagnosis 1 Anal discharge (R19.8) Referral Organization [facility] [place] Referring Provider First Name Nitin Referring Provider Last Name Nadeem Referring Provider Specialty Family Medicine Referred Provider Srinivasa Torres Referred Provider Specialty Gastroenterology Referral Priority Routine General Notes Nitin Silver PA-C 4:39:18 PM > Referral was faxed over VITAL SIGNS Weight 184 lbs Feb, Height 67 in Feb, BMI 28.82 kg/m2 Feb, Heart Rate 80 /min Feb, Respiratory Rate 18 /min Feb, Temperature 97.9 degrees Fahrenheit Feb, Oximetry 97 Feb, Blood pressure systolic 124 mm Hg Feb, Blood pressure diastolic 77 mm Hg Feb, MEDICATIONS Medication SIG (Take, Route, Frequency, Duration) [...] Shoulder x2 1995, 1997 Hospitalization History Childbirth 1989, 1987 Hospitalization History Surgery related Hospitalization History [facility] 3 ribs 01/2018 Goals Section No Information Health Concerns No Information MEDICAL EQUIPMENT No Information MENTAL STATUS No Information FUNCTIONAL STATUS No Information ASSESSMENTS Encounter Date Diagnosis Assessment Notes Treatment Notes Treatm ent Clinical Notes Feb, Drug-induced constipation (ICD-10 - K59.03) You are having constipation at this time, likely secondary to your chronic use of opioid pain medication. Stool can back up to a point where appetite is decreased and can even cause indigestion or heartburn as there is no room for the food to advance. Please take MiraLAX as directed to help promote bowel movement. Please promote clear fluids and increase the amount of dietary fiber that you are getting. You should be on a daily stool softener as long as you are taking pain medication daily please limit the amount of dairy that you are consuming in your diet. You may also consider taking a non-gas forming supplement such as Citrucel or FiberCon daily to help keep bowel movements soft. Feb, Anal discharge (ICD-10 - R19.8) Feb, Gastroesophageal reflux dise ase, unspecified whether esophagitis present (ICD-10 - K21.9) Feb, Other Medication/s di scussed with patient and questions answered. RTC as needed for worsening or unresolved symptoms. Patient states understanding and agreement with this plan. PLAN OF TREATMENT Medication Medication Name Sig [...] Once a day for 30 day(s) Feb, Treatment Notes Assessment Notes Clinical Notes Drug-induced constipation You are having constipation at this time, likely secondary to your chronic use of opioid pain medication. Stool can back up to a point where appetite is decreased and can even cause indigestion or heartburn as there is no room for the food to advance. Please take MiraLAX as directed to help promote bowel movement. Please promote clear fluids and increase the amount of dietary fiber that you are getting. You should be on a daily stool softener as long as you are taking pain medication daily please limit the amount of dairy that you are consuming in your diet. You may also consider taking a non-gas fo rming supplement such as Citrucel or FiberCon daily to help keep bowel movements soft. Referrals Referral Date Details Screening colonoscopy|Charity baumann has drug-induced constipation, acid reflux, and anal leakage, Srinivasa Torres Next Appt Details In 5 to 7 days unless improving Reason: Provider Name:Radha Horton, 2021-04 02:30:00 PM, [address], , [place], [address], Insurance Providers Payer Name Payer Address Payer Phone Insured Name Patient Relati onship to Insured Coverage Start Date Coverage End Date BCBS CHRISTOPH SRIVASTAVA PPO [phone] [facility] 3seventy [place] [facility] [address] YASHIRA CAZARES self"
--- OUTSIDE RECORDS SUMMARY | 2021-04-17 11:42 | CCD ---
Author Author [facility] Syst ems Organization [facility] Syst ems Address Unknown Phone Unavailable Care Team Providers Care Ophthalmologist Retina Specialist Name Role Phone Radha Horton Unavailable PROBLEMS Type Condition ICD9-CM Code [id number] Code Onset Dates Condition S tatus W/U Status Risk SNOMED Code Notes Problem Mixed hyperlipidemia E78.2 Active confirmed 007145325 Problem Chronic pain syndrome G89.4 Active confirmed 752372304 Problem Cervicalgia M54.2 Active confirmed 85792707 Problem Spondylosis of cervical 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 M47.812 Active confirmed 095252571 Problem Myalgia M79.1 Active confirmed 11488841 Problem Hypertensive heart disease without heart failure I 11.9 Active confirmed 07487871 Problem Degenerative disc disease, cervical M50.30 Acti ve confirmed 66436086 Problem Acquired hypothyroidism E03.9 Active confirmed 441703754 Problem Urinary incontinence, mixed N39.46 Active confirmed 153282196 Problem Allergic rhinitis, unspecified seasonality, unspecifie d trigger J30.9 Active confirmed 53988652 Problem Other chronic pain G89.29 Active confirmed 8 8316892 Problem Pain in left knee M25.562 Active confirmed 3 17152277732535 Problem Pain in right knee M25.561 Active confirmed 90350879 ALLERGIES Allergen (clinical drug ingredient) Drug/Non Drug Allergy do cumented on EMR Reaction Allergy Type Onset Date Status Cymbalta Unknown Drug Allergy Active environmental nasal congestion, eye irritation Non Drug Al lergy Active cats eye irritation, sneezing Non Drug Allergy Active ENCOUNTERS from 1962 to 2021-01-17 Encounter Location Date Provider Diagnosis [facility] [place] [phone] [place] [address] Jan, 2021 Radha Schoeneman Spondylosis of cervical region without m [...] Notes Start Da te End Date Status Rosuvastatin Calcium 10 MG 1 tablet Orally Once a day for 90 days Active Levothyroxine Sodium 100 MCG 1 tablet in the morning o n an empty stomach Orally Once a day for 90 day(s) Aug, Active tiZANidine HCl 2 MG 1 tablet as needed Orally Three times a day for 90 day(s) Apr, Active Valsartan 160 MG 1 tablet Orally Once a day for 90 day(s) Active traMADol HCl 50 MG 1 tablet as needed Orally every 6 hrs MDD=4 f or 30 days Aug, Active Macrobid 100 MG 1 capsule at bedtime with food Orally bid for 5 day(s) Jul, Not-Taking Augmentin 875-125 MG 1 tablet Orally every 12 hrs for 7 day(s) Jul, Not-Taking HYDROcodone-Acetaminophen 5-325 MG 1 tablet as needed Orally bid prn MDD=2 for 30 days Jan, Active amLODIPine Besylate 5 MG 1 tablet Orally Once a day for 90 days Active Zofran ODT 4 MG 1 tablet on the tongue and a llow to dissolve for 2 doses Orally every 8 hrs prn nausea for 15 days May, Active Fluticasone Propionate 50 MCG/ACT 2 spray in each nostril Nasall y Once a day Feb, Not-Taking PROCEDURES No Information RESULTS No Results REASON FOR VISIT refill MEDICAL (GENERAL) HISTORY Type Description Date [...] Notes Treatment Notes Treatm ent Clinical Notes Jan, Spondylosis of cervical oneida on without myelopathy or radiculopathy (ICD-10 - M47.812) PLAN OF TREATMENT Medication Medication Name Sig Start Date Stop Date HYDROcodone-Acetaminophen 5-325 MG 1 tablet as needed Orally bid prn MDD=2 for 30 days Jan, Next Appt Details Provider Name:Radha Horton, 2021-04 02:30:00 PM, [address], , [place], [address], Insurance Providers Payer Name Payer Address Payer Phone Insured Name Patient Relati onship to Insured Coverage Start Date Coverage End Date BCBS [place] PPO [phone] [facility] [place] [address] YASHIRA CAZARES self
--- OUTSIDE RECORDS SUMMARY | 2021-04-17 11:42 | CCD ---
Author Author [facility] Organization [facility] [facility] Address Unknown Phone Unavailable Care Team Providers Care Track Repairer Name Role Phone Radha Horton Unavailable PROBLEMS Type Condition ICD9-CM Code [id number] Code Onset Dates Condition S tatus W/U Status Risk SNOMED Code Notes Problem Mixed hyperlipidemia E78.2 Active confirmed 505171480 Problem Chronic pain syndrome G89.4 Active confirmed 461815665 Problem Cervicalgia M54.2 Active confirmed 23567470 Problem Spondylosis of cervical 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 M47.812 Active confirmed 283633034 Problem Myalgia M79.1 Active confirmed 33771541 Problem Hypertensive heart disease without heart failure I 11.9 Active confirmed 38154577 Problem Degenerative disc disease, cervical M50.30 Acti ve confirmed 59767677 Problem Acquired hypothyroidism E03.9 Active confirmed 503216790 Problem Urinary incontinence, mixed N39.46 Active confirmed 275187945 Problem Allergic rhinitis, unspecified seasonality, unspecifie d trigger J30.9 Active confirmed 41008300 Problem Other chronic pain G89.29 Active confirmed 8 4413094 Problem Pain in left knee M25.562 Active confirmed 3 93361398268105 Problem Pain in right knee M25.561 Active confirmed 21807006 ALLERGIES Allergen (clinical drug ingredient) Drug/Non Drug Allergy do cumented on EMR Reaction Allergy Type Onset Date Status Cymbalta Unknown Drug Allergy Active environmental nasal congestion, eye irritation Non Drug Al lergy Active cats eye irritation, sneezing Non Drug Allergy Active ENCOUNTERS from 1962 to 2021-01-23 Encounter Location Date Provider Diagnosis [facility] Aaron TELLEZ [phone] [place] [address] Jan, Radha Horton IMMUNIZATIONS Vaccine Route Administration Date [...] prn MDD=2 for 30 days Jan, Active Rosuvastatin Calcium 10 MG 1 tablet [...] RESULTS No Results REASON FOR VISIT refill rosuvastatin MEDICAL (GENERAL) HISTORY Type Description Date Medical [...] bid prn MDD=2 for 30 days Jan, Rosuvastatin Calcium 10 MG 1 tablet Orally Once a day for 90 day s Next Appt Details Provider Name:Radha Horton, 2021-04 - 02:30:00 PM, [address] , , [place], [address], Insurance Providers Payer Name Payer Address Payer Phone Insured Name Patient Relati onship to Insured Coverage Start Date Coverage End Date BCBS CHRISTOPH SRIVASTAVA PPO [phone] [facility] [place] [address] YASHIRA CAZARES
--- OUTSIDE RECORDS SUMMARY | 2021-04-17 11:42 | CCD ---
Author Author [facility] Syst em[facility] Organization [facility] em[facility] Address Unknown Phone Unavailable Care Team Providers Care Upsetting Machine Operator Name Role Phone Radha Horton Unavailable PROBLEMS Type Condition ICD9-CM Code [id number] Code Onset Dates Condition S tatus W/U Status Risk SNOMED Code Notes Problem Mixed hyperlipidemia E78.2 Active confirmed 594225741 Problem Chronic pain syndrome G89.4 Active confirmed 088004164 Problem Cervicalgia M54.2 Active confirmed 72619129 Problem Spondylosis of cervical 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 M47.812 Active confirmed 549727326 Problem Myalgia M79.1 Active confirmed 94228187 Problem Hypertensive heart disease without heart failure I 11.9 Active confirmed 81419474 Problem Degenerative disc disease, cervical M50.30 Acti ve confirmed 45082782 Problem Acquired hypothyroidism E03.9 Active confirmed 566606460 Problem Urinary incontinence, mixed N39.46 Active confirmed 122183688 Problem Allergic rhinitis, unspecified seasonality, unspecifie d trigger J30.9 Active confirmed 14078848 Problem Other chronic pain G89.29 Active confirmed 8 9952310 Problem Pain in left knee M25.562 Active confirmed 3 87920782368952 Problem Pain in right knee M25.561 Active confirmed 30125741 ALLERGIES Allergen (clinical drug ingredient) Drug/Non Drug Allergy do cumented on EMR Reaction Allergy Type Onset Date Status Cymbalta Unknown Drug Allergy Active environmental nasal congestion, eye irritation Non Drug Al lergy Active cats eye irritation, sneezing Non Drug Allergy Active ENCOUNTERS from 1960 to 2021-01-17 Encounter Location Date Provider Diagnosis [facility] Aaron TELLEZ [phone] [place] [address] 14 Jan, 2021 Radha Horton Acquired hypothyroidism E03.9 and Histor y of sleep study Z92.89 IMMUNIZATIONS Vaccine Route Administration Date Status TDAP [...] REASON FOR REFERRAL No Information VITAL SIGNS Weight 184 lbs Jan, Height 67 in Jan, BMI 28.82 kg/m2 Jan, Heart Rate 80 /min Jan, Respiratory Rate 18 /min Jan, Temperature 98.3 degrees Fahrenheit Jan, Oximetry 98%RA Jan, Blood pressure systolic 121 mm Hg Jan, Blood pressure diastolic 67 mm Hg Jan, MEDICATIONS Medication SIG (Take, Route, Frequency, Duration) [...] day Feb, Not-Taking PROCEDURES No Information RESULTS Component Value Reference Range TSH Reviewed date:01/15/2021 14:38:42 Interpretation:Abnormal Performing Lab:[facility], [facility] [address] [facility] [address] , ,[place] [address] THYROID STIMULATING HORMONE 0.021 0.358-3.740 REASON FOR VISIT Follow-up hypothyroidism MEDICAL (GENERAL) HISTORY Type Description Date Medical [...] Treatment Notes Treatm ent Clinical Notes Jan, Acquired hypothyroidism (ICD-10 - E03.9) Patient will be monitored with TSH. TSH returned low. Free T4 and free T3 were added on. Jan, History of sleep study (ICD-10 - Z92.89) Patient will be referred to pulmonology for further evaluation PLAN OF TREATMENT Medication Medication Name Sig Start Date Stop Date HYDROcodone-Acetaminophen 5-325 MG 1 tablet as needed Orally bid prn MDD=2 for 30 days Jan, Treatment Notes Assessment Notes Clinical Notes Acquired hypothyroidism Patient will be monitored with TSH. TSH returned low. Free T4 and free T3 were added on. History of sleep study Patient will be r eferred to pulmonology for further evaluation Future Test Test Name Order Date FREE T3 20210115 FREE T4 20210115 Next Appt Details 3 Months: follow up Reason: Provider Name:Radha Horton, 2021-04 02:30:00 PM, [address], , [place], [address], Insurance Providers Payer Name Payer Address Payer Phone Insured Name Patient Relati onship to Insured Coverage Start Date Coverage End Date BCBS CHRISTOPH SRIVASTAVA PPO [phone] [facility] [employer] [place] [address] YASHIRA CAZARES self
--- OUTSIDE RECORDS SUMMARY | 2021-04-17 11:42 | CCD ---
Author Author [facility] [employer] Sy[employer]s Organization [facility] [employer] [facility] Syst ems Address Unknown Phone Unavailable Care Team Providers Care Pocketed Spring Machine Operator Name Role Phone Radha Horton Unavailable PROBLEMS Type Condition ICD9-CM Code [id number] Code Onset Dates Condition S tatus W/U Status Risk SNOMED Code Notes Problem Chronic pain syndrome G89.4 Active confirmed 024844426 Problem Urinary incontinence, mixed N39.46 Active confirmed 662659733 Problem Mixed hyperlipidemia E78.2 Active confirmed 105536813 Problem Spondylosis of cervical 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 M47.812 Active confirmed 938939029 Problem Myalgia M79.1 Active confirmed 50627514 Problem Allergic rhinitis, unspecified seasonality, unspecifie d trigger J30.9 Active confirmed 78173675 Problem Acquired hypothyroidism E03.9 Active confirmed 791494709 Problem Cervicalgia M54.2 Active confirmed 70778686 Problem Gastroesophageal reflux dise ase, unspecified whether esophagitis present K21.9 Active confirmed 001252365 Problem Degenerative disc disease, cervical M50.30 Acti ve confirmed 75570656 Problem Other chronic pain G89.29 Active confirmed 8 4192479 Problem Pain in left knee M25.562 Active confirmed 3 76536251583492 Problem Pain in right knee M25.561 Active confirmed 40149022 Problem Hypertensive heart disease without heart failure I 11.9 Active confirmed 41252058 ALLERGIES Allergen (clinical drug ingredient) Drug/Non Drug Allergy do cumented on EMR Reaction Allergy Type Onset Date Status Cymbalta Unknown Drug Allergy Active environmental nasal congestion, eye irritation Non Drug Al lergy Active cats eye irritation, sneezing Non Drug Allergy Active ENCOUNTERS from 1960 to 2021-02-18 Encounter Location Date Provider Diagnosis [facility] Aaron [address]LMSTE[address] [phone] [place] [address] Feb, Radha Horton Hypertensive heart disease without heart failure I11.9 and Spondylosis of cervical region without myelopathy or radiculopathy M47.812 IMMUNIZATIONS Vaccine Route Administration [...] Notes Start Da te End Date Status Zofran ODT 4 MG 1 tablet on [...] Nasall y Once a day Feb, Not-Taking Augmentin 875-125 MG 1 tablet Orally every 12 hrs for 7 day(s) Jul, Not-Taking Rosuvastatin Calcium 10 MG 1 tablet Orally Once a day for 90 days Active traMADol HCl 50 MG 1 tablet as needed Orally every 6 hrs MDD=4 f or 30 days Feb, Active HYDROcodone-Acetaminophen 5-325 MG 1 tablet as needed Orally bid prn MDD=2 for 30 days PRN Feb, Active amLODIPine Besylate 5 MG 1 tablet Orally Once a day for 90 days Active Omeprazole 20 MG 1 capsule 30 minutes before morning meal Orally Once a day for 30 day(s) Feb, Active Valsartan 160 MG 1 tablet Orally Once a day for 90 day(s) Active MiraLax 17 GM 1 packet mixed with 8 ounces of fluid Orally Once a day for 10 day(s) Feb, Active Macrobid 100 MG 1 capsule at bedtime with food Orally bid for 5 day(s) Jul, Not-Taking tiZANidine HCl 2 MG 1 tablet as needed Orally Three times a day for 90 day(s) Apr, Active PROCEDURES No Information RESULTS No Results [...] Treatment Notes Treatm ent Clinical Notes Feb, Hypertensive heart disease without heart failure (ICD-10 - I11.9) Feb, Spondylosis of cervical oneida on without [...] tablet as needed Orally every 6 hrs D=4 for 30 days Feb, Omeprazole 20 MG 1 capsule 30 minutes before morning meal Orally Once a day for 30 day(s) Feb, Next Appt Details Provider Name:Radha Horton, 2021-04 02:30:00 PM, [address], , [place], [address], Insurance Providers Payer Name Payer Address Payer Phone Insured Name Patient Relati onship to Insured Coverage Start Date Coverage End Date BCBS CHRISTOPH SRIVASTAVA PPO [phone] [facility] [employer] [facility] [place] [id number] YASHIRA CAZARES self
--- OUTSIDE RECORDS SUMMARY | 2021-04-17 11:42 | CCD ---
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 Name Role Phone Radha Horton Unavailable PROBLEMS Type Condition ICD9-CM Code CQT19-DI Code Onset Dates Condition S tatus W/U Status Risk SNOMED Code Notes Problem Chronic pain syndrome G89.4 Active confirmed 544110475 Problem Urinary incontinence, mixed N39.46 Active confirmed 902325965 Problem Mixed hyperlipidemia E78.2 Active confirmed 881249890 Problem Spondylosis of cervical 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 M47.812 Active confirmed 742234586 Problem Myalgia M79.1 Active confirmed 12092719 Problem Allergic rhinitis, unspecified seasonality, unspecifie d trigger J30.9 Active confirmed 12764998 Problem Acquired hypothyroidism E03.9 Active confirmed 873796397 Problem Cervicalgia M54.2 Active confirmed 77368791 Problem Gastroesophageal reflux dise ase, unspecified whether esophagitis present K21.9 Active confirmed 899746512 Problem Degenerative disc disease, cervical M50.30 Acti ve confirmed 60008196 Problem Other chronic pain G89.29 Active confirmed 8 1294486 Problem Pain in left knee M25.562 Active confirmed 3 [id number] Problem Pain in right knee M25.561 Active confirmed 42678490 Problem Hypertensive heart disease without heart failure I 11.9 Active confirmed 80146670 ALLERGIES Allergen (clinical drug ingredient) Drug/Non Drug Allergy do cumented on EMR Reaction Allergy Type Onset Date Status Cymbalta Unknown Drug Allergy Active environmental nasal congestion, eye irritation Non Drug Al lergy Active cats eye irritation, sneezing Non Drug Allergy Active ENCOUNTERS from 1960 to 2021-03-11 Encounter Location Date Provider Diagnosis [facility] Aaron TELLEZ [phone] [place] [phone] Mar, Radha Horton Acquired hypothyroidism E03.9 and Allerg ic rhinitis, unspecified seasonality, unspecified trigger J30.9 IMMUNIZATIONS Vaccine Route Administration Date Status TDAP [...] Treatment Notes Treatm ent Clinical Notes Mar, Acquired hypothyroidism (ICD-10 - E03.9) Mar, Allergic rhinitis, unspecifi ed seasonality, unspecified trigger (ICD-10 - J30.9) PLAN OF TREATMENT Medication Medication Name Sig [...] day(s) Feb, Next Appt Details Provider Name:Radha Anuragtrinhamado, 2021-04 02:30:00 PM, [address], , [place], [phone], Insurance Providers Payer Name Payer Address Payer Phone Insured Name Patient Relati onship to Insured Coverage Start Date Coverage End Date BCBS CHRISTOPH SRIVASTAVA PPO [phone] [facility] [place] [place] [address] YASHIRA CAZARES self
--- OUTSIDE RECORDS SUMMARY | 2021-04-17 11:43 | CCD ---
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 Name Role Phone Dong Hager MD Unavailable Unavailable Dong Hager MD Unavailable Unavailable Dong Hager MD Unavailable Unavailable Dong Hager MD Unavailable Unavailable Dong Hager MD Unavailable Unavailable Dong Hager MD Unavailable Unavailable Dong Hager MD Unavailable Unavailable Dombek-LangDong MD Unavailable Unavailable Dombek-LangDong MD Unavailable Unavailable Dombek-Dogn Archuleta MD Unavailable Unavailable Dombek-LangDong MD Unavailable Unavailable Dombek-Dong Archuleta MD Unavailable Unavailable Dombek-LangDong MD Unavailable Unavailable Dombek-LangDong MD Unavailable Unavailable Dombek-LangDong MD Unavailable Unavailable Dombek-LangDong MD Unavailable Unavailable Dombek-LangDong MD Unavailable Unavailable Dombek-LangDong MD Unavailable Unavailable Dombek-LangDong MD Unavailable Unavailable Dombek-LangDong MD Unavailable Unavailable Dombek-LangDong MD Unavailable Unavailable Dombek-LangDong MD Unavailable Unavailable Danobek-Dong Archuleta MD Unavailable Unavailable DanobekDong Blount MD Unavailable Unavailable Danobek-Dong Archuleta MD Unavailable Unavailable Danobek-Dong Archuleta MD Unavailable Unavailable Dombek-Dong Archuleta MD Unavailable Unavailable Danobek-Dong Archuleta MD Unavailable Unavailable DanobeDong Thapa MD Unavailable Unavailable Danobek-Dong Archuleta MD Unavailable Unavailable Danobek-Dong Archuleta MD Unavailable Unavailable Danobek-Dong Archuleta MD Unavailable Unavailable Danobek-Dong Archuleta MD Unavailable Unavailable DanobeDong Thapa MD Unavailable Unavailable Danobek-Dong Archuleta MD Unavailable Unavailable Danobek-Dong Archuleta MD Unavailable Unavailable Danobek-Dong Archuleta MD Unavailable Unavailable Danobek-Dong Archuleta MD Unavailable Unavailable DanobeDong Thapa MD Unavailable Unavailable Elle Torres MD Unavailable Unavailable Elle Torres MD Unavailable Unavailable Elle Torres MD Unavailable Unavailable Elle Torres MD Unavailable Unavailable Elle Torres MD Unavailable Unavailable Elle Torres MD Unavailable Unavailable Elle Torres MD Unavailable Unavailable Elle Torres MD Unavailable Unavailable Elle Torres MD Unavailable Unavailable Elle Torres MD Unavailable Unavailable Elle Torres MD Unavailable Unavailable MelissaElle hall MD Unavailable Unavailable MelissaElle hall MD Unavailable Unavailable MelissaElle hall MD Unavailable Unavailable MelissaElle hall MD Unavailable Unavailable MelissaElle hall MD Unavailable Unavailable MelissaElle hall MD Unavailable Unavailable MelissaElle hall MD Unavailable Unavailable MelissaElle MD Unavailable Unavailable MelissaElle MD Unavailable Unavailable MelissaElle MD Unavailable Unavailable MelissaElle MD Unavailable Unavailable MelissaElle MD Unavailable Unavailable MelissaElle MD Unavailable Unavailable MelissaElle hall MD Unavailable Unavailable MelissaElle hall MD Unavailable Unavailable MelissaElle hall MD Unavailable Unavailable MelissaElle hall MD Unavailable Unavailable Elle Torres MD Unavailable Unavailable MelissaElle hall MD Unavailable Unavailable MelissaElle hall MD Unavailable Unavailable Elle Torres MD Unavailable Unavailable Elle Torres MD Unavailable Unavailable Elle Torres MD Unavailable Unavailable Elle Torres MD Unavailable Unavailable Elle Torres MD Unavailable Unavailable Elle Torres MD Unavailable Unavailable Elle Torres MD Unavailable Unavailable Elle Torres MD Unavailable Unavailable Elle Torres MD Unavailable Unavailable Elle Torres MD Unavailable Unavailable Elle Torres MD Unavailable Unavailable Elle Torres MD Unavailable Unavailable Elle Torres MD Unavailable Unavailable Elle Torres MD Unavailable Unavailable Elle Torres MD Unavailable Unavailable Elle Torres MD Unavailable Unavailable Elle Torres MD Unavailable Unavailable Elle Torres MD Unavailable Unavailable Elle Torres MD Unavailable Unavailable Trevin HIGUERA Unavailable [phone] Trevin HIGUERA Unavailable [phone] Trevin HIGUERA Unavailable [phone] Trevin HIGUERA Unavailable [phone] Trevin HIGUERA Unavailable [phone] Schoeneman, Kennard DO Unavailable Unavailable Schoeneman, Kennard DO Unavailable Unavailable Schoeneman, Kennard DO Unavailable Unavailable Schoeneman, Kennard DO Unavailable Unavailable Schoeneman, Kennard DO Unavailable Unavailable Schoeneman, Radha DO Unavailable Unavailable Schoeneman, Kennard DO Unavailable Unavailable Schoeneman, Radha DO Unavailable Unavailable Schoeneman, Kennard DO Unavailable Unavailable Schoeneman, Kennard DO Unavailable Unavailable Schoeneman, Radha DO Unavailable Unavailable Schoeneman, Radha DO Unavailable Unavailable Schoeneman, Kennard DO Unavailable Unavailable Schoeneman, Radha DO Unavailable Unavailable Schoeneman, Radha DO Unavailable Unavailable Schoeneman, Radha DO Unavailable Unavailable Schoeneman, Radha DO Unavailable Unavailable Schoeneman, Radha DO Unavailable Unavailable Schoeneman, Kennard DO Unavailable Unavailable Schoeneman, Kennard DO Unavailable Unavailable Schoeneman, Radha DO Unavailable Unavailable Schoeneman, Kennard DO Unavailable Unavailable Schoeneman, Kennard DO Unavailable Unavailable Schoeneman, Radha DO Unavailable Unavailable Schoeneman, Kennard DO Unavailable Unavailable Schoeneman, Radha DO Unavailable Unavailable Schoeneman, Radha DO Unavailable Unavailable Schoeneman, Kennard DO Unavailable Unavailable Schoeneman, Radha DO Unavailable Unavailable Schoeneman, Radha DO Unavailable Unavailable Schoeneman, Kennard DO Unavailable Unavailable Schoeneman, Kennard DO Unavailable Unavailable Schoeneman, Radha DO Unavailable Unavailable Schoeneman, Kennard DO Unavailable Unavailable Schoeneman, Kennard DO Unavailable Unavailable Schoeneman, Kennard DO Unavailable Unavailable Schoeneman, Radha DO Unavailable Unavailable Schoeneman, Radha DO Unavailable Unavailable Schoeneman, Radha DO Unavailable Unavailable Schoeneman, Kennard DO Unavailable Unavailable Schoeneman, Kennard DO Unavailable Unavailable BUNKER, R PORSHA PA Unavailable Unavailable BUNKER, R PORSHA PA Unavailable Unavailable BUNKER, R PORSHA PA Unavailable Unavailable BUNKER, R PORSHA PA Unavailable Unavailable BUNKER, R PORSHA PA Unavailable Unavailable BUNKER, R PORSHA PA Unavailable Unavailable BUNKER, R PORSHA PA Unavailable Unavailable BUNKER, R PORSHA PA Unavailable Unavailable BUNKER, R PORSHA PA Unavailable Unavailable BUNKER, R PORSHA PA Unavailable Unavailable BUNKER, R PORSHA PA Unavailable Unavailable BUNKER, R PORSHA PA Unavailable Unavailable BUNKER, R PORSHA PA Unavailable Unavailable BUNKER, R PORSHA PA Unavailable Unavailable BUNKER, R PORSHA PA Unavailable Unavailable BUNKER, R PORSHA PA Unavailable Unavailable BUNKER, R PORSHA PA Unavailable Unavailable BUNKER, R PORSHA PA Unavailable Unavailable BUNKER, R PORSHA PA Unavailable Unavailable BUNKER, R PORSHA PA Unavailable Unavailable BUNKER, R PORSHA PA Unavailable Unavailable BUNKER, R PORSHA PA Unavailable Unavailable BUNKER, R PORSHA PA Unavailable Unavailable BUNKER, R PORSHA PA Unavailable Unavailable BUNKER, R PORSHA PA Unavailable Unavailable BUNKER, R PORSHA PA Unavailable Unavailable BUNKER, R PORSHA PA Unavailable Unavailable BUNKER, R PORSHA PA Unavailable Unavailable BUNKER, R PORSHA PA Unavailable Unavailable BUNKER, R PORSHA PA Unavailable Unavailable BUNKER, R PORSHA PA Unavailable Unavailable BUNKER, R PORSHA PA Unavailable Unavailable BUNKER, R PORSHA PA Unavailable Unavailable BUNKER, R PORSHA PA Unavailable Unavailable BUNKER, R PORSHA PA Unavailable Unavailable BUNKER, R PORSHA PA Unavailable Unavailable BUNKER, R PORSHA PA Unavailable Unavailable BUNKER, R PORSHA PA Unavailable Unavailable BUNKER, R PORSHA PA Unavailable Unavailable BUNKER, R PORSHA PA Unavailable Unavailable BUNKER, R PORSHA PA Unavailable Unavailable BUNKER, R PORSHA PA Unavailable Unavailable BUNKER, R PORSHA PA Unavailable Unavailable BUNKER, R PORSHA PA Unavailable Unavailable BUNKER, R PORSHA PA Unavailable Unavailable BUNKER, R PORSHA PA Unavailable Unavailable BUNKER, R PORSHA PA Unavailable Unavailable BUNKER, R PORSHA PA Unavailable Unavailable BUNKER, R PORSHA PA Unavailable Unavailable BUNKER, R PORSHA PA Unavailable Unavailable BUNKER, R PORSHA PA Unavailable Unavailable BUNKER, R PORSHA PA Unavailable Unavailable BUNKER, R PORSHA PA Unavailable Unavailable BUNKER, R PORSHA PA Unavailable Unavailable BUNKER, R PORSHA PA Unavailable Unavailable BUNKER, R PORSHA PA Unavailable Unavailable ELIZABETH, L GAVIN PA Unavailable Unavailable ELIZABETH, L GAVIN PA Unavailable Unavailable ELIZABETH, L GAVIN PA Unavailable Unavailable ELIZABETH, L GAVIN PA Unavailable Unavailable ELIZABETH, L GAVIN PA Unavailable Unavailable ELIZABETH, L GAVIN PA Unavailable Unavailable ELIZABETH, L GAVIN PA Unavailable Unavailable ELIZABETH, L GAVIN PA Unavailable Unavailable ELIZABETH, L GAVIN PA Unavailable Unavailable ELIZABETH, L GAVIN PA Unavailable Unavailable ELIZABETH, L GAVIN PA Unavailable Unavailable ELIZABETH, L GAVIN PA Unavailable Unavailable ELIZABETH, L GAVIN PA Unavailable Unavailable ELIZABETH, L GAVIN PA Unavailable Unavailable ELIZABETH, L GAVIN PA Unavailable Unavailable ELIZABETH, L GAVIN PA Unavailable Unavailable ELIZABETH, L GAVIN PA Unavailable Unavailable ELIZABETH, L GAVIN PA Unavailable Unavailable ELIZABETH, L GAVIN PA Unavailable Unavailable ELIZABETH, L GAVIN PA Unavailable Unavailable Benedicto JOHNSON Unavailable Unavailable Benedicto JOHNSON Unavailable Unavailable Re-disclosure Warning The records that you are about to access may contain information from federally-assisted alcohol or drug abuse programs. If such information is present, then the following federally mandated warning applies: This information has been disclosed to you from records protected by federal confidentiality rules (42 CFR part 2). The federal rules prohibit you from making any further disclosure of this information unless further disclosure is expressly permitted by the written consent of the person to whom it pertains or as otherwise permitted by 42 CFR part 2. A general authorization for the release of medical or other information is NOT sufficient for this purpose. The Federal rules restrict any use of the information to criminally investigate or prosecute any alcohol or drug abuse patient.The records that you are about to access may contain highly sensitive health information, the redisclosure of which is protected by Article 27-F of the [facility] Public Health law. If you continue you may have access to information: Regarding HIV / AIDS; Provided by facilities licensed or operated by the [facility] Office of Mental Health; or Provided by the [facility] Office for People With Developmental Disabilities. If such information is present, then the following [facility] mandated warning applies: This information has been disclosed to you from confidential records which are protected by state law. State law prohibits you from making any further disclosure of this information without the specific written consent of the person to whom it pertains, or as otherwise permitted by law. Any unauthorized further disclosure in violation of state law may result in a fine or fdc sentence or both. A general authorization for the release of medical or other information is NOT sufficient authorization for further disc losure. Family History Family Member Name Family Member Gender Family Member Status Date o f Status Description Data Source(s) Unknown Male Problem [facility] ([facility]) Unknown Male Problem [facility] ([facility]) Encounters Encounter Providers Location Date Indications Data Source(s ) Outpatient Attender: Srinivasa Torres MD Main Office 04/08/2021 09:45:00 AM EDT [facility] ([facility]) [place] [address] [facility] [address] 04/02/2021 12:00:00 AM EDT eCW1 ([facility]) [place] [address] [facility] [facility] [address] 03/18/2021 12:00:00 AM EDT eCW1 ([facility]) [place] [address] [facility] [facility] [address] 03/14/2021 12:00:00 AM EDT eCW1 ([facility]) [place] [address] [facility] [address] 03/11/2021 12:00:00 AM EDT eCW1 ([facility]) [place] [address] [facility] [address] 02/18/2021 12:00:00 AM EDT eCW1 ([facility]) [place] [address] [facility] [address] 02/10/2021 12:00:00 AM EDT eCW1 ([facility]) [place] [address] [facility] [facility] [address] 02/07/2021 12:00:00 AM EDT eCW1 ([facility]) [place] [address] [facility] [address] 02/07/2021 12:00:00 AM EDT eCW1 ([facility]) [place] [address] [facility] [address] 01/23/2021 12:00:00 AM EDT eCW1 ([facility]) [place] [address] [facility] [address] 01/16/2021 12:00:00 AM EDT eCW1 ([facility]) [place] [address] [facility] [address] 01/15/2021 12:00:00 AM EDT eCW1 ([facility]) [place] [address] [facility] [address] 01/07/2021 12:00:00 AM EDT eCW1 ([facility]) [place] [address] [facility] [address] 12/18/2020 12:00:00 AM EDT eCW1 ([facility]) [place] [address] [facility] [address] 12/05/2020 12:00:00 AM EDT eCW1 ([facility]) [place] [address] [facility] [address] 11/28/2020 12:00:00 AM EDT eCW1 ([facility]) [place] [address] [facility] [address] 11/04/2020 12:00:00 AM EDT eCW1 ([facility]) [place] [address] [facility] [address] 10/29/2020 12:00:00 AM EDT eCW1 ([facility]) [place] [address] [facility] [address] 10/18/2020 12:00:00 AM EDT eCW1 ([facility]) [place] [address] [facility] [address] 10/03/2020 12:00:00 AM EDT eCW1 ([facility]) [place] [address] [facility] [address] 09/27/2020 12:00:00 AM EDT eCW1 ([facility]) [place] [address] [facility] [address] 09/02/2020 12:00:00 AM EST eCW1 ([facility]) [place] [address] [facility] [address] 08/13/2020 12:00:00 AM EST eCW1 ([facility]) [place] [address] [facility] [facility] [address] 08/08/2020 12:00:00 AM EST eCW1 ([facility]) [place] [address] [facility] [address] 08/02/2020 12:00:00 AM EST eCW1 ([facility]) [place] [address] [facility] [facility] [address] 07/29/2020 12:00:00 AM EST eCW1 ([facility]) [place] [address] [facility] [address] 07/29/2020 12:00:00 AM EST eCW1 ([facility]) [place] [address] [facility] [address] 07/22/2020 12:00:00 AM EST eCW1 ([facility]) [place] [address] [facility] [address] 07/16/2020 12:00:00 AM EST eCW1 ([facility]) [place] [address] [facility] [facility] [address] 07/12/2020 12:00:00 AM EST [facility]) [place] [address] [facility] [facility] [address] 07/12/2020 12:00:00 AM EST [facility]CW1 ([facility]) [place] [address] [facility] [address] 07/09/2020 12:00:00 AM EST eCW1 ([facility]) Emergency Attender: Brandee Hager MDAttender: GAVIN JOHNSON PAReferrer: Radha Horton DO 07/03/2020 05:42:00 PM EST - 07/03/2020 06:10:00 PM [facility] Patient discharged. [place] [address] [facility] [facility] [address] 07/01/2020 12:00:00 AM EST [facility]CW1 [facility]) Outpatient Attender: Srinivasa Torres MD Main Office 06/18/2020 01:15:00 PM EST [facility] ([facility]) Unknown [address] [facility] [address] 06/13/2020 12:00:00 AM EST eCW1 [facility] [place] [address] [facility] [facility] [address] 06/10/2020 12:00:00 AM EST eCW1 ([facility]) [place] [address] [facility] [address] 05/27/2020 12:00:00 AM EST eCW1 ([facility]) [place] [address] [facility] [address] 05/16/2020 12:00:00 AM EST eCW1 ([facility]) [place] [address] [facility] [address] 05/09/2020 12:00:00 AM EST eCW1 ([facility]) [place] [address] [facility] [address] 05/06/2020 12:00:00 AM EST eCW1 ([facility]) Unknown [address] [facility] [address] 05/06/2020 12:00:00 AM EST eCW1 ([facility]) Unknown [address] [facility] [address] 04/26/2020 12:00:00 AM EDT eCW1 ([facility]) [place] [address] [facility] [address] 04/22/2020 12:00:00 AM EDT eCW1 ([facility]) [place] [address] [facility] [address] 04/17/2020 12:00:00 AM EDT eCW1 ([facility]) Unknown [address] [facility] [address] 04/10/2020 12:00:00 AM EDT eCW1 ([facility]) [place] [address] [facility] [address] 04/09/2020 12:00:00 AM EDT eCW1 ([facility]) Emergency Attender: GISELA HIGUERAReferrer: PORSHA Jones 01/24/2018 09:10:00 AM EDT - 01/24/2018 11:08:00 AM EDT [facility] Immunizations Vaccine Date Status Description Data Source(s) COVID-19 VACCINE Tg 11/07/2020 12:00:00 AM EDT completed [facility] Vaccine Series Complete: YESThis Data wa s Submitted to [facility]. Medications Medication Brand Name Start Date Product Form Dose Route Admi nistrative Instructions Pharmacy Instructions Status Indications Reaction Description Data Source(s) Sutab Sutab 04/08/2021 12:00:00 AM EDT active MEDENT ([facility]) Acetaminophen 325 MG / Hydrocodone Bitartrate 5 MG Ora l Tablet 5-325 mg HYDROCODONE/ACETAMINOPHEN 04/03/2021 12:00:00 AM EDT tablet 60 TAKE ONE TABLET BY MOUTH TWICE A DAY NEEDED MAXIMUM DAILY DOSE = 2 TAKE ONE TABLET BY MOUTH TWICE A DAY NEEDED MAXIMUM DAILY DOSE = 2 SOLD: 04/04/2021 [facility] Acetaminophen 325 MG / Hydrocodone Adam trate 5 MG Oral Tablet HYDROcodone- Acetaminophen 5-325 MG HYDROcodone-Acetaminophen 5-325 MG 04/02/2021 12:00:00 AM EDT 1.0 {tablet_as_needed} active HYDROcodone-Acetaminophen 5-325 MG eCW1 ([facility]) Lidocaine Hydrochloride 0.05 MG/MG Transdermal Patch [ Lidoderm] Lidoderm 5 % Lidoderm 5 % 03/18/2021 12:00:00 AM EDT active Lidoderm 5 % eCW1 ([facility]) tramadol hydrochloride 50 MG Oral Tablet traMADol HCl 50 MG traMADol HCl 50 MG 03/18/2021 12:00:00 AM EDT 1.0 {tablet_as_needed} active traMADol HCl 50 MG eCW1 ([facility]) Lidocaine Hydrochloride 0.05 MG/MG Transdermal Patch [ Lidoderm] Lidoderm 5 % Lidoderm 5 % 03/18/2021 12:00:00 AM EDT active Lidoderm 5 % eCW1 ([facility]) 5 mg 03/18/2021 12:00:00 AM EDT tablet 90 TAKE ONE TABLET BY MOUTH EVERY DAY TAKE ONE TABLET BY MOUTH EVERY DAY SOLD: 03/19/2021 [facility] 5 % 03/18/2021 12:00:00 AM EDT adhesive patch,medicate d 30 APPLY 1 PATCH REMOVE AFTER 12 HOURS EXTERNALLY ONCE A DAY APPLY 1 PATCH REMOVE AFTER 12 HOURS EXTERNALLY ONCE A DAY SOLD: 03/18/2021 [facility] 50 mg 03/18/2021 12:00:00 AM EDT tablet 120 TAKE ONE TABLET BY MOUTH EVERY 6 HOURS NEEDED MAXIMUM DAILY DOSE = 4 TABLETS TAKE ONE TABLET BY MOUTH EVERY 6 HOURS NEEDED MAXIMUM DAILY DOSE = 4 TABLETS SOLD: 03/18/2021 [facility] tramadol hydrochloride 50 MG Oral Tablet traMADol HCl 50 MG traMADol HCl 50 MG 03/18/2021 12:00:00 AM EDT 1.0 {tablet_as_needed} active traMADol HCl 50 MG eCW1 ([facility]) 20 mg 03/18/2021 12:00:00 AM EDT capsule,delayed release (DR/EC) 90 TAKE ONE CAPSULE BY MOUTH EVERY MORNING 30 MINUTES BEFORE MORNING MEAL TAKE ONE CAPSULE BY MOUTH EVERY MORNING 30 MINUTES BEFORE MORNING MEAL SOLD: 03/19/2021 [facility] 100 mcg 03/11/2021 12:00:00 AM EDT tablet 90 TAKE ONE TABLET BY MOUTH EVERY MORNING ON EMPTY STOMACH TAKE ONE TABLET BY MOUTH EVERY MORNING O N EMPTY STOMACH SOLD: 03/12/2021 [facility] Fluticasone propionate 0.05 MG/ACTUAT Metered Dose [place] [facility] [place] 50 mcg/actuation FLUTICASONE PROPIONATE 03/11/2021 12:00:00 AM EDT spray,suspension 16 2 SPRAYS EACH NOSTRIL ONCE DAILY 2 SPRAYS EACH NOSTRIL ONCE DAILY SOLD: 03/12/2021 [facility] Acetaminophen 325 MG / Hydrocodone Adam trate 5 MG Oral Tablet HYDROcodone- Acetaminophen 5-325 MG HYDROcodone-Acetaminophen 5-325 MG 02/18/2021 12:00:00 AM EDT 1.0 {tablet_as_needed} active HYDROcodone-Acetaminophen 5-325 MG eCW1 ([facility]) Acetaminophen 325 MG / Hydrocodone Bitartrate 5 MG Ora l Tablet 5-325 mg HYDROCODONE/ACETAMINOPHEN 02/18/2021 12:00:00 AM EDT tablet 60 TAKE ONE TABLET BY MOUTH TWICE A DAY NEEDED MAXIMUM DAILY DOSE = 2 TAKE ONE TABLET BY MOUTH TWICE A DAY NEEDED MAXIMUM DAILY DOSE = 2 SOLD: 02/20/2021 [facility] Acetaminophen 325 MG / Hydrocodone Adam trate 5 MG Oral Tablet HYDROcodone- Acetaminophen 5-325 MG HYDROcodone-Acetaminophen 5-325 MG 02/18/2021 12:00:00 AM EDT 1.0 {tablet_as_needed} active HYDROcodone-Acetaminophen 5-325 MG eCW1 ([facility]) 160 mg 02/18/2021 12:00:00 AM EDT tablet 90 TAKE ONE TABLET BY MOUTH EVERY DAY TAKE ONE TABLET BY MOUTH EVERY DAY SOLD: 02/20/2021 [facility] Acetaminophen 325 MG / Hydrocodone Adam trate 5 MG Oral Tablet HYDROcodone- Acetaminophen 5-325 MG HYDROcodone-Acetaminophen 5-325 MG 02/18/2021 12:00:00 AM EDT 1.0 {tablet_as_needed} active HYDROcodone-Acetaminophen 5-325 MG eCW1 ([facility]) Acetaminophen 325 MG / Hydrocodone Adam trate 5 MG Oral Tablet HYDROcodone- Acetaminophen 5-325 MG HYDROcodone-Acetaminophen 5-325 MG 02/18/2021 12:00:00 AM EDT 1.0 {tablet_as_needed} active HYDROcodone-Acetaminophen 5-325 MG eCW1 ([facility]) tramadol hydrochloride 50 MG Oral Tablet traMADol HCl 50 MG traMADol HCl 50 MG 02/10/2021 12:00:00 AM EDT 1.0 {tablet_as_needed} active traMADol HCl 50 MG eCW1 ([facility]) tramadol hydrochloride 50 MG Oral Tablet traMADol HCl 50 MG traMADol HCl 50 MG 02/10/2021 12:00:00 AM EDT 1.0 {tablet_as_needed} active traMADol HCl 50 MG eCW1 ([facility]) tramadol hydrochloride 50 MG Oral Tablet traMADol HCl 50 MG traMADol HCl 50 MG 02/10/2021 12:00:00 AM EDT 1.0 {tablet_as_needed} active traMADol HCl 50 MG eCW1 ([facility]) 50 mg 02/10/2021 12:00:00 AM EDT tablet 120 TAKE ONE TABLET BY MOUTH EVERY 6 HOURS NEEDED MAXIMUM DAILY DOSE = 4 TAKE ONE TABLET BY MOUTH EVERY 6 HOURS NEEDED MAXIMUM DAILY DOSE = 4 SOLD: 02/10/2021 [facility] tramadol hydrochloride 50 MG Oral Tablet traMADol HCl 50 MG traMADol HCl 50 MG 02/10/2021 12:00:00 AM EDT 1.0 {tablet_as_needed} active traMADol HCl 50 MG eCW1 ([facility]) tramadol hydrochloride 50 MG Oral Tablet traMADol HCl 50 MG traMADol HCl 50 MG 02/10/2021 12:00:00 AM EDT 1.0 {tablet_as_needed} active traMADol HCl 50 MG eCW1 ([facility]) 17 gram 02/08/2021 12:00:00 AM EDT powder in packet 10 MIX ONE PACKET WITH 8 OUNCES OF FLUID ONCE DAILY FOR 10 DAYS MIX ONE PACKET WITH 8 OUNCES OF FLUID ONCE DAILY FOR 10 DAYS SOLD: 02/10/2021 [facility] 20 mg 02/08/2021 12:00:00 AM EDT capsule,delayed release (DR/EC) 30 TAKE ONE CAPSULE BY MOUTH EVERY MORNING BEFORE MORNING MEAL TAKE ONE CAPSULE BY MOUTH EVERY MORNING BEFORE MORNING MEAL SOLD: 02/10/2021 [facility] Omeprazole 20 MG Delayed Release Oral Capsule Omeprazole 20 MG 02/07/2021 12:00:00 AM EDT active Omeprazo le 20 MG eCW1 ([facility]) POLYETHYLENE GLYCOL 3350 142 MG/ML Oral Solution [Delphine lax] MiraLax 17 GM MiraLax 17 GM 02/07/2021 12:00:00 AM EDT 1.0 {packet_mixed_with_8_ou nces_of_fluid} active MiraLax 17 GM eCW1 (Formerly [facility]) POLYETHYLENE GLYCOL 3350 142 MG/ML Oral Solution [Delphine lax] MiraLax 17 GM MiraLax 17 GM 02/07/2021 12:00:00 AM EDT 1.0 {packet_mixed_with_8_ou nces_of_fluid} active MiraLax 17 GM eCW1 (Formerly [facility]) POLYETHYLENE GLYCOL 3350 142 MG/ML Oral Solution [Delphine lax] MiraLax 17 GM MiraLax 17 GM 02/07/2021 12:00:00 AM EDT 1.0 {packet_mixed_with_8_ou nces_of_fluid} active MiraLax 17 GM eCW1 ([facility]ly [facility]) Omeprazole 20 MG Delayed Release Oral Capsule Omeprazole 20 MG 02/07/2021 12:00:00 AM EDT active Omeprazo le 20 MG eCW1 ([facility]) Omeprazole 20 MG Delayed Release Oral Capsule Omeprazole 20 MG 02/07/2021 12:00:00 AM EDT active Omeprazo le 20 MG eCW1 ([facility]) POLYETHYLENE GLYCOL 3350 142 MG/ML Oral Solution [Delphine lax] MiraLax 17 GM MiraLax 17 GM 02/07/2021 12:00:00 AM EDT 1.0 {packet_mixed_with_8_ou nces_of_fluid} active MiraLax 17 GM eCW1 ([facility]ly [facility]) Omeprazole 20 MG Delayed Release Oral Capsule Omeprazole 20 MG 02/07/2021 12:00:00 AM EDT active Omeprazo le 20 MG eCW1 ([facility]) Omeprazole 20 MG Delayed Release Oral Capsule Omeprazole 20 MG 02/07/2021 12:00:00 AM EDT active Omeprazo le 20 MG eCW1 ([facility]) Omeprazole 20 MG Delayed Release Oral Capsule Omeprazole 20 MG 02/07/2021 12:00:00 AM EDT active Omeprazo le 20 MG eCW1 ([facility]) POLYETHYLENE GLYCOL 3350 142 MG/ML Oral Solution [Delphine lax] MiraLax 17 GM MiraLax 17 GM 02/07/2021 12:00:00 AM EDT 1.0 {packet_mixed_with_8_ou nces_of_fluid} active MiraLax 17 GM eCW1 ([facility]) POLYETHYLENE GLYCOL 3350 142 MG/ML Oral Solution [Delphine lax] MiraLax 17 GM MiraLax 17 GM 02/07/2021 12:00:00 AM EDT 1.0 {packet_mixed_with_8_ou nces_of_fluid} active MiraLax 17 GM eCW1 ([facility]) POLYETHYLENE GLYCOL 3350 142 MG/ML Oral Solution [Delphine lax] MiraLax 17 GM MiraLax 17 GM 02/07/2021 12:00:00 AM EDT 1.0 {packet_mixed_with_8_ou nces_of_fluid} active MiraLax 17 GM eCW1 ([facility]) POLYETHYLENE GLYCOL 3350 142 MG/ML Oral Solution [Delphine lax] MiraLax 17 GM MiraLax 17 GM 02/07/2021 12:00:00 AM EDT 1.0 {packet_mixed_with_8_ou nces_of_fluid} active MiraLax 17 GM eCW1 ([facility]) Omeprazole 20 MG Delayed Release Oral Capsule Omeprazole 20 MG 02/07/2021 12:00:00 AM EDT active Omeprazo le 20 MG eCW1 ([facility]) Omeprazole 20 MG Delayed Release Oral Capsule Omeprazole 20 MG 02/07/2021 12:00:00 AM EDT active Omeprazo le 20 MG eCW1 ([facility]) Rosuvastatin calcium 10 MG Oral Tablet ROSUVASTATIN CALCIUM 01/23/2021 12:00:00 AM EDT tablet 90 TAKE ONE TABLET BY MOUTH ROBER TAKE ONE TABLET BY MOUTH EVERY DAY SOLD: 01/27/2021 [facility] Acetaminophen 325 MG / Hydrocodone Bitartrate 5 MG Ora l Tablet 5-325 mg HYDROCODONE/ACETAMINOPHEN 01/16/2021 12:00:00 AM EDT tablet 60 TAKE ONE TABLET BY MOUTH TWICE A DAY NEEDED MAXIMUM DAILY DOSE = TWO TABLETS TAKE ONE TABLET BY MOUTH TWICE A DAY NEEDED MAXIMUM DAILY DOSE = TWO TABLETS SOLD: 01/17/2021 [facility] Acetaminophen 325 MG / Hydrocodone Adam trate 5 MG Oral Tablet HYDROcodone- Acetaminophen 5-325 MG HYDROcodone-Acetaminophen 5-325 MG 01/16/2021 12:00:00 AM EDT 1.0 {tablet_as_needed} active HYDROcodone-Acetaminophen 5-325 MG eCW1 ([facility]) Acetaminophen 325 MG / Hydrocodone Adam trate 5 MG Oral Tablet HYDROcodone- Acetaminophen 5-325 MG HYDROcodone-Acetaminophen 5-325 MG 01/16/2021 12:00:00 AM EDT 1.0 {tablet_as_needed} active HYDROcodone-Acetaminophen 5-325 MG eCW1 ([facility]) Acetaminophen 325 MG / Hydrocodone Adam trate 5 MG Oral Tablet HYDROcodone- Acetaminophen 5-325 MG HYDROcodone-Acetaminophen 5-325 MG 01/16/2021 12:00:00 AM EDT 1.0 {tablet_as_needed} active HYDROcodone-Acetaminophen 5-325 MG eCW1 ([facility]) Acetaminophen 325 MG / Hydrocodone Adam trate 5 MG Oral Tablet HYDROcodone- Acetaminophen 5-325 MG HYDROcodone-Acetaminophen 5-325 MG 01/16/2021 12:00:00 AM EDT 1.0 {tablet_as_needed} active HYDROcodone-Acetaminophen 5-325 MG eCW1 ([facility]) Acetaminophen 325 MG / Hydrocodone Adam trate 5 MG Oral Tablet HYDROcodone- Acetaminophen 5-325 MG HYDROcodone-Acetaminophen 5-325 MG 01/16/2021 12:00:00 AM EDT 1.0 {tablet_as_needed} active HYDROcodone-Acetaminophen 5-325 MG eCW1 ([facility]) Acetaminophen 325 MG / Hydrocodone Adam trate 5 MG Oral Tablet HYDROcodone- Acetaminophen 5-325 MG HYDROcodone-Acetaminophen 5-325 MG 01/16/2021 12:00:00 AM EDT 1.0 {tablet_as_needed} active HYDROcodone-Acetaminophen 5-325 MG eCW1 ([facility]) 50 mg 01/07/2021 12:00:00 AM EDT tablet 120 TAKE ONE TABLET BY MOUTH EVERY 6 HOURS NEEDED MAXIMUM DAILY DOSE = 4 TABLETS TAKE ONE TABLET BY MOUTH EVERY 6 HOURS NEEDED MAXIMUM DAILY DOSE = 4 TABLETS SOLD: 01/09/2021 [facility] Ondansetron 4 MG Disintegrating Oral Tablet ONDANSETRON 12/19/2020 12:00:00 AM EDT tablet,disintegrating 45 TAKE ONE T ABLET ON TH TONGUE AND ALLOW TO DISSOLVE FOR TWO DOSES EVERY 8 HOURS NEEDED FOR NAUSEA TAKE ONE TABLET ON TH TONGUE AND ALLOW TO DISSOLVE FOR TWO DOSES EVERY 8 HOURS NEEDED FOR NAUSEA SOLD: 12/23/2020 [facility] Acetaminophen 325 MG / Hydrocodone Bitartrate 5 MG Ora l Tablet 5-325 mg HYDROCODONE/ACETAMINOPHEN 12/06/2020 12:00:00 AM EDT tablet 60 TAKE ONE TABLET BY MOUTH TWICE A DAY NEEDED MAXIMUM DAILY DOSE = TWO TABLETS TAKE ONE TABLET BY MOUTH TWICE A DAY NEEDED MAXIMUM DAILY DOSE = TWO TABLETS SOLD: 12/06/2020 [facility] 50 mg 12/06/2020 12:00:00 AM EDT tablet 120 TAKE ONE TABLET BY MOUTH EVERY 6 HOURS MAXIMUM DAILY DOSE = FOUR TABLETS TAKE ONE TABLET BY MOUTH EVERY 6 HOURS MAXIMUM DAILY DOSE = FOUR TABLETS SOLD: 12/09/2020 [facility] Acetaminophen 325 MG / Hydrocodone Adam trate 5 MG Oral Tablet HYDROcodone- Acetaminophen 5-325 MG HYDROcodone-Acetaminophen 5-325 MG 12/05/2020 12:00:00 AM EDT 1.0 {tablet_as_needed} active HYDROcodone-Acetaminophen 5-325 MG eCW1 ([facility]) Acetaminophen 325 MG / Hydrocodone Adam trate 5 MG Oral Tablet Hydrocodone- Acetaminophen 5-325 MG Hydrocodone-Acetaminophen 5-325 MG 12/05/2020 12:00:00 AM EDT 1.0 {tablet_as_needed} active Hydrocodone-Acetaminophen 5-325 MG eCW1 ([facility]) Acetaminophen 325 MG / Hydrocodone Adam trate 5 MG Oral Tablet HYDROcodone- Acetaminophen 5-325 MG HYDROcodone-Acetaminophen 5-325 MG 12/05/2020 12:00:00 AM EDT 1.0 {tablet_as_needed} active HYDROcodone-Acetaminophen 5-325 MG eCW1 ([facility]) 5 mg 11/28/2020 12:00:00 AM EDT tablet 90 TAKE ONE TABLET BY MOUTH EVERY DAY TAKE ONE TABLET BY MOUTH EVERY DAY SOLD: 12/04/2020 [facility] 50 mg 11/05/2020 12:00:00 AM EDT tablet 120 TAKE ONE TABLET BY MOUTH EVERY 6 HOURS NEEDED MAXIMUM DAILY DOSE = 4 TABLETS TAKE ONE TABLET BY MOUTH EVERY 6 HOURS NEEDED MAXIMUM DAILY DOSE = 4 TABLETS SOLD: 11/07/2020 [facility] Acetaminophen 325 MG / Hydrocodone Bitartrate 5 MG Ora l Tablet 5-325 mg HYDROCODONE/ACETAMINOPHEN 10/29/2020 12:00:00 AM EDT tablet 60 TAKE ONE TABLET BY MOUTH TWICE A DAY NEEDED MAXIMUM DAILY DOSE = TWO TABLETS TAKE ONE TABLET BY MOUTH TWICE A DAY NEEDED MAXIMUM DAILY DOSE = TWO TABLETS SOLD: 10/31/2020 [facility] Acetaminophen 325 MG / Hydrocodone Adam trate 5 MG Oral Tablet Hydrocodone- Acetaminophen 5-325 MG Hydrocodone-Acetaminophen 5-325 MG 10/29/2020 12:00:00 AM EDT 1.0 {tablet_as_needed} active Hydrocodone-Acetaminophen 5-325 MG eCW1 ([facility]) Acetaminophen 325 MG / Hydrocodone Adam trate 5 MG Oral Tablet Hydrocodone- Acetaminophen 5-325 MG Hydrocodone-Acetaminophen 5-325 MG 10/29/2020 12:00:00 AM EDT 1.0 {tablet_as_needed} active Hydrocodone-Acetaminophen 5-325 MG eCW1 ([facility]) Acetaminophen 325 MG / Hydrocodone Adam trate 5 MG Oral Tablet Hydrocodone- Acetaminophen 5-325 MG Hydrocodone-Acetaminophen 5-325 MG 10/29/2020 12:00:00 AM EDT 1.0 {tablet_as_needed} active Hydrocodone-Acetaminophen 5-325 MG eCW1 ([facility]) Rosuvastatin calcium 10 MG Oral Tablet ROSUVASTATIN CALCIUM 10/19/2020 12:00:00 AM EDT tablet 90 TAKE ONE TABLET BY MOUTH ROBER DAY TAKE ONE TABLET BY MOUTH EVERY DAY SOLD: 10/21/2020 [facility] 50 mg 10/03/2020 12:00:00 AM EDT tablet 120 TAKE ONE TABLET BY MOUTH EVERY 6 HOURS NEEDED MAXIMUM DAILY DOSE = 4 TABLETS TAKE ONE TABLET BY MOUTH EVERY 6 HOURS NEEDED MAXIMUM DAILY DOSE = 4 TABLETS SOLD: 10/03/2020 [facility] Acetaminophen 325 MG / Hydrocodone Adam trate 5 MG Oral Tablet Hydrocodone- Acetaminophen 5-325 MG Hydrocodone-Acetaminophen 5-325 MG 09/27/2020 12:00:00 AM EDT 1.0 {tablet_as_needed} active Hydrocodone-Acetaminophen 5-325 MG eCW1 ([facility]) Acetaminophen 325 MG / Hydrocodone Adam trate 5 MG Oral Tablet Hydrocodone- Acetaminophen 5-325 MG Hydrocodone-Acetaminophen 5-325 MG 09/27/2020 12:00:00 AM EDT 1.0 {tablet_as_needed} active Hydrocodone-Acetaminophen 5-325 MG eCW1 ([facility]) 5-325 mg 09/27/2020 12:00:00 AM EDT tablet 60 TAKE ONE TABLET BY MOUTH TWICE A DAY NEEDED MAXIMUM DAILY DOSE = 2 TAKE ONE TABLET BY MOUTH TWICE A DAY NEEDED MAXIMUM DAILY DOSE = 2 SOLD: 09/27/2020 [facility] Acetaminophen 325 MG / Hydrocodone Adam trate 5 MG Oral Tablet Hydrocodone- Acetaminophen 5-325 MG Hydrocodone-Acetaminophen 5-325 MG 09/27/2020 12:00:00 AM EDT 1.0 {tablet_as_needed} active Hydrocodone-Acetaminophen 5-325 MG eCW1 ([facility]) 50 mg 09/03/2020 12:00:00 AM EST tablet 120 TAKE ONE TABLET BY MOUTH EVERY 6 HOURS NEEDED MAXIMUM DAILY DOSE = 4 TABLETS TAKE ONE TABLET BY MOUTH EVERY 6 HOURS NEEDED MAXIMUM DAILY DOSE = 4 TABLETS SOLD: 09/03/2020 [facility] 5-325 mg 08/28/2020 12:00:00 AM EST tablet 60 TAKE ONE TABLET BY MOUTH TWICE A DAY NEEDED MAXIMUM DAILY DOSE = 2 TAKE ONE TABLET BY MOUTH TWICE A DAY NEEDED MAXIMUM DAILY DOSE = 2 SOLD: 08/28/2020 [facility] tizanidine 2 MG Oral Tablet TIZANIDINE HCL 08/28/2020 12:00:[address] tablet 270 TAKE ONE TABLET BY MOUTH THREE TIMES A D AY NEEDED TAKE ONE TABLET BY MOUTH THREE TIMES A DAY NEEDED SOLD: 08/28/2020 [facility] Acetaminophen 325 MG / Hydrocodone Adam trate 5 MG Oral Tablet Hydrocodone- Acetaminophen 5-325 MG Hydrocodone-Acetaminophen 5-325 MG 08/28/2020 12:00:00 AM EST 1.0 {tablet_as_needed} active Hydrocodone-Acetaminophen 5-325 MG eCW1 ([facility]) 100 mcg 08/14/2020 12:00:00 AM EST tablet 90 TAKE ONE TABLET BY MOUTH EVERY MORNING ON AN EMPTY STOMACH TAKE ONE TABLET BY MOUTH EVERY MORNING O N AN EMPTY STOMACH SOLD: 12/04/2020 [facility] 100 mcg 08/14/2020 12:00:00 AM EST tablet 90 TAKE ONE TABLET BY MOUTH EVERY MORNING ON AN EMPTY STOMACH TAKE ONE TABLET BY MOUTH EVERY MORNING O N AN EMPTY STOMACH SOLD: 08/14/2020 [facility] Levothyroxine Sodium 0.1 MG Oral Tablet Levothyroxine Sodium 100 MCG Levothyroxine Sodium 100 MCG 08/13/2020 12:00:00 AM EST active Levothyroxine Sodium 100 MCG eCW1 ([facility]) Levothyroxine Sodium 0.1 MG Oral Tablet Levothyroxine Sodium 100 MCG Levothyroxine Sodium 100 MCG 08/13/2020 12:00:00 AM EST active Levothyroxine Sodium 100 MCG eCW1 ([facility]) Levothyroxine Sodium 0.1 MG Oral Tablet Levothyroxine Sodium 100 MCG Levothyroxine Sodium 100 MCG 08/13/2020 12:00:00 AM EST active Levothyroxine Sodium 100 MCG eCW1 ([facility]) Levothyroxine Sodium 0.1 MG Oral Tablet Levothyroxine Sodium 100 MCG Levothyroxine Sodium 100 MCG 08/13/2020 12:00:00 AM EST active Levothyroxine Sodium 100 MCG eCW1 ([facility]) Levothyroxine Sodium 0.1 MG Oral Tablet Levothyroxine Sodium 100 MCG Levothyroxine Sodium 100 MCG 08/13/2020 12:00:00 AM EST active Levothyroxine Sodium 100 MCG eCW1 ([facility]) Levothyroxine Sodium 0.1 MG Oral Tablet Levothyroxine Sodium 100 MCG Levothyroxine Sodium 100 MCG 08/13/2020 12:00:00 AM EST active Levothyroxine Sodium 100 MCG eCW1 ([facility]) Levothyroxine Sodium 0.1 MG Oral Tablet Levothyroxine Sodium 100 MCG Levothyroxine Sodium 100 MCG 08/13/2020 12:00:00 AM EST active Levothyroxine Sodium 100 MCG eCW1 ([facility]) Levothyroxine Sodium 0.1 MG Oral Tablet Levothyroxine Sodium 100 MCG Levothyroxine Sodium 100 MCG 08/13/2020 12:00:00 AM EST active Levothyroxine Sodium 100 MCG eCW1 ([facility]) Levothyroxine Sodium 0.1 MG Oral Tablet Levothyroxine Sodium 100 MCG Levothyroxine Sodium 100 MCG 08/13/2020 12:00:00 AM EST active Levothyroxine Sodium 100 MCG eCW1 ([facility]) Levothyroxine Sodium 0.1 MG Oral Tablet Levothyroxine Sodium 100 MCG Levothyroxine Sodium 100 MCG 08/13/2020 12:00:00 AM EST active Levothyroxine Sodium 100 MCG eCW1 ([facility]) Levothyroxine Sodium 0.1 MG Oral Tablet Levothyroxine Sodium 100 MCG Levothyroxine Sodium 100 MCG 08/13/2020 12:00:00 AM EST active Levothyroxine Sodium 100 MCG eCW1 ([facility]) Levothyroxine Sodium 0.1 MG Oral Tablet Levothyroxine Sodium 100 MCG Levothyroxine Sodium 100 MCG 08/13/2020 12:00:00 AM EST active Levothyroxine Sodium 100 MCG eCW1 ([facility]) Levothyroxine Sodium 0.1 MG Oral Tablet Levothyroxine Sodium 100 MCG Levothyroxine Sodium 100 MCG 08/13/2020 12:00:00 AM EST active Levothyroxine Sodium 100 MCG eCW1 ([facility]) Levothyroxine Sodium 0.1 MG Oral Tablet Levothyroxine Sodium 100 MCG Levothyroxine Sodium 100 MCG 08/13/2020 12:00:00 AM EST active Levothyroxine Sodium 100 MCG eCW1 ([facility]) Levothyroxine Sodium 0.1 MG Oral Tablet Levothyroxine Sodium 100 MCG Levothyroxine Sodium 100 MCG 08/13/2020 12:00:00 AM EST active Levothyroxine Sodium 100 MCG eCW1 ([facility]) Levothyroxine Sodium 0.1 MG Oral Tablet Levothyroxine Sodium 100 MCG Levothyroxine Sodium 100 MCG 08/13/2020 12:00:00 AM EST active Levothyroxine Sodium 100 MCG eCW1 ([facility]) Levothyroxine Sodium 0.1 MG Oral Tablet Levothyroxine Sodium 100 MCG Levothyroxine Sodium 100 MCG 08/13/2020 12:00:00 AM EST active Levothyroxine Sodium 100 MCG eCW1 ([facility]) Levothyroxine Sodium 0.1 MG Oral Tablet Levothyroxine Sodium 100 MCG Levothyroxine Sodium 100 MCG 08/13/2020 12:00:00 AM EST active Levothyroxine Sodium 100 MCG eCW1 ([facility]) Levothyroxine Sodium 0.1 MG Oral Tablet Levothyroxine Sodium 100 MCG Levothyroxine Sodium 100 MCG 08/13/2020 12:00:00 AM EST active Levothyroxine Sodium 100 MCG eCW1 ([facility]) Levothyroxine Sodium 0.1 MG Oral Tablet Levothyroxine Sodium 100 MCG Levothyroxine Sodium 100 MCG 08/13/2020 12:00:00 AM EST active Levothyroxine Sodium 100 MCG eCW1 ([facility]) Levothyroxine Sodium 0.1 MG Oral Tablet Levothyroxine Sodium 100 MCG Levothyroxine Sodium 100 MCG 08/13/2020 12:00:00 AM EST active Levothyroxine Sodium 100 MCG eCW1 ([facility]) Levothyroxine Sodium 0.1 MG Oral Tablet Levothyroxine Sodium 100 MCG Levothyroxine Sodium 100 MCG 08/13/2020 12:00:00 AM EST active Levothyroxine Sodium 100 MCG eCW1 ([facility]) Levothyroxine Sodium 0.1 MG Oral Tablet Levothyroxine Sodium 100 MCG Levothyroxine Sodium 100 MCG 08/13/2020 12:00:00 AM EST active Levothyroxine Sodium 100 MCG eCW1 ([facility]) 50 mg 08/02/2020 12:00:00 AM EST tablet 120 TAKE ONE TABLET NEEDED EVERY 6 HOURS MAXIMUM DAILY DOSE = 4 TABLETS TAKE ONE TABLET NEEDED EVERY 6 HOURS MAXIMUM DAILY DOSE = 4 TABLETS SOLD: 08/05/2020 [facility] NITROFURANTOIN, MACROCRYSTALS 25 MG / Ni trofurantoin, Monohydrate 75 MG Oral Capsule [Macrobid] Macrobid 100 MG Macrobid 100 MG 07/29/2020 12:00:00 AM EST suspended Macrobid 100 MG eCW1 ( [facility]) NITROFURANTOIN, MACROCRYSTALS 25 MG / Ni trofurantoin, Monohydrate 75 MG Oral Capsule [Macrobid] Macrobid 100 MG Macrobid 100 MG 07/29/2020 12:00:00 AM EST suspended Macrobid 100 MG eCW1 ( [facility]) NITROFURANTOIN, MACROCRYSTALS 25 MG / Ni trofurantoin, Monohydrate 75 MG Oral Capsule [Macrobid] Macrobid 100 MG Macrobid 100 MG 07/29/2020 12:00:00 AM EST suspended Macrobid 100 MG eCW1 ( [facility]) NITROFURANTOIN, MACROCRYSTALS 25 MG / Ni trofurantoin, Monohydrate 75 MG Oral Capsule [Macrobid] Macrobid 100 MG Macrobid 100 MG 07/29/2020 12:00:00 AM EST suspended Macrobid 100 MG eCW1 ( [facility]) NITROFURANTOIN, MACROCRYSTALS 25 MG / Ni trofurantoin, Monohydrate 75 MG Oral Capsule [Macrobid] Macrobid 100 MG Macrobid 100 MG 07/29/2020 12:00:00 AM EST suspended Macrobid 100 MG eCW1 ( [facility]) NITROFURANTOIN, MACROCRYSTALS 25 MG / Ni trofurantoin, Monohydrate 75 MG Oral Capsule [Macrobid] Macrobid 100 MG Macrobid 100 MG 07/29/2020 12:00:00 AM EST suspended Macrobid 100 MG eCW1 ( [facility]) NITROFURANTOIN, MACROCRYSTALS 25 MG / Ni trofurantoin, Monohydrate 75 MG Oral Capsule [Macrobid] Macrobid 100 MG Macrobid 100 MG 07/29/2020 12:00:00 AM EST suspended Macrobid 100 MG eCW1 ( [facility]) NITROFURANTOIN, MACROCRYSTALS 25 MG / Ni trofurantoin, Monohydrate 75 MG Oral Capsule [Macrobid] Macrobid 100 MG Macrobid 100 MG 07/29/2020 12:00:00 AM EST suspended Macrobid 100 MG eCW1 ( [facility]) NITROFURANTOIN, MACROCRYSTALS 25 MG / Ni trofurantoin, Monohydrate 75 MG Oral Capsule [Macrobid] Macrobid 100 MG Macrobid 100 MG 07/29/2020 12:00:00 AM EST suspended Macrobid 100 MG eCW1 ( [facility]) NITROFURANTOIN, MACROCRYSTALS 25 MG / Ni trofurantoin, Monohydrate 75 MG Oral Capsule [Macrobid] Macrobid 100 MG Macrobid 100 MG 07/29/2020 12:00:00 AM EST active Macrobid 100 MG eCW1 ([facility]) NITROFURANTOIN, MACROCRYSTALS 25 MG / Ni trofurantoin, Monohydrate 75 MG Oral Capsule [Macrobid] Macrobid 100 MG Macrobid 100 MG 07/29/2020 12:00:00 AM EST suspended Macrobid 100 MG eCW1 ( [facility]) NITROFURANTOIN, MACROCRYSTALS 25 MG / Ni trofurantoin, Monohydrate 75 MG Oral Capsule [Macrobid] Macrobid 100 MG Macrobid 100 MG 07/29/2020 12:00:00 AM EST suspended Macrobid 100 MG eCW1 ( [facility]) NITROFURANTOIN, MACROCRYSTALS 25 MG / Ni trofurantoin, Monohydrate 75 MG Oral Capsule [Macrobid] Macrobid 100 MG Macrobid 100 MG 07/29/2020 12:00:00 AM EST suspended Macrobid 100 MG eCW1 ( [facility]) NITROFURANTOIN, MACROCRYSTALS 25 MG / Ni trofurantoin, Monohydrate 75 MG Oral Capsule [Macrobid] Macrobid 100 MG Macrobid 100 MG 07/29/2020 12:00:00 AM EST suspended Macrobid 100 MG eCW1 ( [facility]) NITROFURANTOIN, MACROCRYSTALS 25 MG / Ni trofurantoin, Monohydrate 75 MG Oral Capsule [Macrobid] Macrobid 100 MG Macrobid 100 MG 07/29/2020 12:00:00 AM EST suspended Macrobid 100 MG eCW1 ( [facility]) NITROFURANTOIN, MACROCRYSTALS 25 MG / Ni trofurantoin, Monohydrate 75 MG Oral Capsule [Macrobid] Macrobid 100 MG Macrobid 100 MG 07/29/2020 12:00:00 AM EST active Macrobid 100 MG eCW1 ([facility]) NITROFURANTOIN, MACROCRYSTALS 25 MG / Ni trofurantoin, Monohydrate 75 MG Oral Capsule [Macrobid] Macrobid 100 MG Macrobid 100 MG 07/29/2020 12:00:00 AM EST suspended Macrobid 100 MG eCW1 ( [facility]) NITROFURANTOIN, MACROCRYSTALS 25 MG / Ni trofurantoin, Monohydrate 75 MG Oral Capsule [Macrobid] Macrobid 100 MG Macrobid 100 MG 07/29/2020 12:00:00 AM EST suspended Macrobid 100 MG eCW1 ( [facility]) NITROFURANTOIN, MACROCRYSTALS 25 MG / Ni trofurantoin, Monohydrate 75 MG Oral Capsule [Macrobid] Macrobid 100 MG Macrobid 100 MG 07/29/2020 12:00:00 AM EST active Macrobid 100 MG eCW1 ([facility]) NITROFURANTOIN, MACROCRYSTALS 25 MG / Ni trofurantoin, Monohydrate 75 MG Oral Capsule [Macrobid] Macrobid 100 MG Macrobid 100 MG 07/29/2020 12:00:00 AM EST suspended Macrobid 100 MG eCW1 ( [facility]) NITROFURANTOIN, MACROCRYSTALS 25 MG / Ni trofurantoin, Monohydrate 75 MG Oral Capsule [Macrobid] Macrobid 100 MG Macrobid 100 MG 07/29/2020 12:00:00 AM EST suspended Macrobid 100 MG eCW1 ( [facility]) NITROFURANTOIN, MACROCRYSTALS 25 MG / Ni trofurantoin, Monohydrate 75 MG Oral Capsule [Macrobid] Macrobid 100 MG Macrobid 100 MG 07/29/2020 12:00:00 AM EST suspended Macrobid 100 MG eCW1 ( [facility]) NITROFURANTOIN, MACROCRYSTALS 25 MG / Ni trofurantoin, Monohydrate 75 MG Oral Capsule [Macrobid] Macrobid 100 MG Macrobid 100 MG 07/29/2020 12:00:00 AM EST suspended Macrobid 100 MG eCW1 ( [facility]) NITROFURANTOIN, MACROCRYSTALS 25 MG / Ni trofurantoin, Monohydrate 75 MG Oral Capsule [Macrobid] Macrobid 100 MG Macrobid 100 MG 07/29/2020 12:00:00 AM EST suspended Macrobid 100 MG eCW1 ( [facility]) NITROFURANTOIN, MACROCRYSTALS 25 MG / Ni trofurantoin, Monohydrate 75 MG Oral Capsule [Macrobid] Macrobid 100 MG Macrobid 100 MG 07/29/2020 12:00:00 AM EST suspended Macrobid 100 MG eCW1 ( [facility]) NITROFURANTOIN, MACROCRYSTALS 25 MG / Ni trofurantoin, Monohydrate 75 MG Oral Capsule [Macrobid] Macrobid 100 MG Macrobid 100 MG 07/29/2020 12:00:00 AM EST suspended Macrobid 100 MG eCW1 ( [facility]) Acetaminophen 325 MG / Hydrocodone Adam trate 5 MG Oral Tablet Hydrocodone- Acetaminophen 5-325 MG Hydrocodone-Acetaminophen 5-325 MG 07/22/2020 12:00:00 AM EST 1.0 {tablet_as_needed} active Hydrocodone-Acetaminophen 5-325 MG eCW1 ([facility]) 5-325 mg 07/22/2020 12:00:00 AM EST tablet 60 TAKE ONE TABLET BY MOUTH TWICE A DAY NEEDED FOR PAIN MAXIMUM DAILY DOSE = 2 TABLETS TAKE ONE TABLET BY MOUTH TWICE A DAY NEEDED FOR PAIN MAXIMUM DAILY DOSE = 2 TABLETS SOLD: 07/24/2020 [facility] Acetaminophen 325 MG / Hydrocodone Adam trate 5 MG Oral Tablet Hydrocodone- Acetaminophen 5-325 MG Hydrocodone-Acetaminophen 5-325 MG 07/22/2020 12:00:00 AM EST 1.0 {tablet_as_needed} active Hydrocodone-Acetaminophen 5-325 MG eCW1 ([facility]) Acetaminophen 325 MG / Hydrocodone Adam trate 5 MG Oral Tablet Hydrocodone- Acetaminophen 5-325 MG Hydrocodone-Acetaminophen 5-325 MG 07/22/2020 12:00:00 AM EST 1.0 {tablet_as_needed} active Hydrocodone-Acetaminophen 5-325 MG eCW1 ([facility]) Acetaminophen 325 MG / Hydrocodone Adam trate 5 MG Oral Tablet Hydrocodone- Acetaminophen 5-325 MG Hydrocodone-Acetaminophen 5-325 MG 07/22/2020 12:00:00 AM EST 1.0 {tablet_as_needed} active Hydrocodone-Acetaminophen 5-325 MG eCW1 ([facility]) Acetaminophen 325 MG / Hydrocodone Adam trate 5 MG Oral Tablet Hydrocodone- Acetaminophen 5-325 MG Hydrocodone-Acetaminophen 5-325 MG 07/22/2020 12:00:00 AM EST 1.0 {tablet_as_needed} active Hydrocodone-Acetaminophen 5-325 MG eCW1 ([facility]) Acetaminophen 325 MG / Hydrocodone Adam trate 5 MG Oral Tablet Hydrocodone- Acetaminophen 5-325 MG Hydrocodone-Acetaminophen 5-325 MG 07/22/2020 12:00:00 AM EST 1.0 {tablet_as_needed} active Hydrocodone-Acetaminophen 5-325 MG eCW1 ([facility]) Augmentin 875-125 MG UNK 07/16/2020 12:00:00 AM EST 1.0 {tab let} suspended Augmentin 875-125 MG eCW1 ([facility]) Augmentin 875-125 MG UNK 07/16/2020 12:00:00 AM EST 1.0 {tab let} suspended Augmentin 875-125 MG eCW1 ([facility]) Augmentin 875-125 MG UNK 07/16/2020 12:00:00 AM EST 1.0 {tab let} suspended Augmentin 875-125 MG eCW1 ([facility]) Augmentin 875-125 MG UNK 07/16/2020 12:00:00 AM EST 1.0 {tab let} suspended Augmentin 875-125 MG eCW1 ([facility]) Augmentin 875-125 MG UNK 07/16/2020 12:00:00 AM EST 1.0 {tab let} suspended Augmentin 875-125 MG eCW1 ([facility]) Augmentin 875-125 MG UNK 07/16/2020 12:00:00 AM EST 1.0 {tab let} suspended Augmentin 875-125 MG eCW1 ([facility]) Augmentin 875-125 MG UNK 07/16/2020 12:00:00 AM EST 1.0 {tab let} suspended Augmentin 875-125 MG eCW1 ([facility]) 875-125 mg 07/16/2020 12:00:00 AM EST tablet 14 TAKE ONE TABLET BY MOUTH EVERY 12 HOURS FOR 7 DAYS TAKE ONE TABLET BY MOUTH EVERY 12 HOURS FOR 7 DAYS SOLD: 07/16/2020 [facility] Augmentin 875-125 MG UNK 07/16/2020 12:00:00 AM EST 1.0 {tab let} suspended Augmentin 875-125 MG eCW1 ([facility]) Augmentin 875-125 MG UNK 07/16/2020 12:00:00 AM EST 1.0 {tab let} suspended Augmentin 875-125 MG eCW1 ([facility]) Augmentin 875-125 MG UNK 07/16/2020 12:00:00 AM EST 1.0 {tab let} suspended Augmentin 875-125 MG eCW1 ([facility]) Augmentin 875-125 MG UNK 07/16/2020 12:00:00 AM EST 1.0 {tablet } active Augmentin 875-125 MG eCW1 ([facility]) Augmentin 875-125 MG UNK 07/16/2020 12:00:00 AM EST 1.0 {tab let} suspended Augmentin 875-125 MG eCW1 ([facility]) Augmentin 875-125 MG UNK 07/16/2020 12:00:00 AM EST 1.0 {tab let} suspended Augmentin 875-125 MG eCW1 ([facility]) Augmentin 875-125 MG UNK 07/16/2020 12:00:00 AM EST 1.0 {tab let} suspended Augmentin 875-125 MG eCW1 ([facility]) Augmentin 875-125 MG UNK 07/16/2020 12:00:00 AM EST 1.0 {tablet } active Augmentin 875-125 MG eCW1 ([facility]) Augmentin 875-125 MG UNK 07/16/2020 12:00:00 AM EST 1.0 {tab let} suspended Augmentin 875-125 MG eCW1 ([facility]) Augmentin 875-125 MG UNK 07/16/2020 12:00:00 AM EST 1.0 {tab let} suspended Augmentin 875-125 MG eCW1 ([facility]) Augmentin 875-125 MG UNK 07/16/2020 12:00:00 AM EST 1.0 {tab let} suspended Augmentin 875-125 MG eCW1 ([facility]) Augmentin 875-125 MG UNK 07/16/2020 12:00:00 AM EST 1.0 {tab let} suspended Augmentin 875-125 MG eCW1 ([facility]) Augmentin 875-125 MG UNK 07/16/2020 12:00:00 AM EST 1.0 {tab let} suspended Augmentin 875-125 MG eCW1 ([facility]) Augmentin 875-125 MG UNK 07/16/2020 12:00:00 AM EST 1.0 {tab let} suspended Augmentin 875-125 MG eCW1 ([facility]) Augmentin 875-125 MG UNK 07/16/2020 12:00:00 AM EST 1.0 {tab let} suspended Augmentin 875-125 MG eCW1 ([facility]) Augmentin 875-125 MG UNK 07/16/2020 12:00:00 AM EST 1.0 {tab let} suspended Augmentin 875-125 MG eCW1 ([facility]) Augmentin 875-125 MG UNK 07/16/2020 12:00:00 AM EST 1.0 {tab let} suspended Augmentin 875-125 MG eCW1 ([facility]) Augmentin 875-125 MG UNK 07/16/2020 12:00:00 AM EST 1.0 {tablet } active Augmentin 875-125 MG eCW1 ([facility]) Augmentin 875-125 MG UNK 07/16/2020 12:00:00 AM EST 1.0 {tab let} suspended Augmentin 875-125 MG eCW1 ([facility]) Augmentin 875-125 MG UNK 07/16/2020 12:00:00 AM EST 1.0 {tab let} suspended Augmentin 875-125 MG eCW1 ([facility]) Augmentin 875-125 MG UNK 07/16/2020 12:00:00 AM EST 1.0 {tab let} suspended Augmentin 875-125 MG eCW1 ([facility]) Augmentin 875-125 MG UNK 07/16/2020 12:00:00 AM EST 1.0 {tab let} suspended Augmentin 875-125 MG eCW1 ([facility]) 160 mg 07/11/2020 12:00:00 AM EST tablet 90 TAKE ONE TABLET BY MOUTH EVERY DAY TAKE ONE TABLET BY MOUTH EVERY DAY SOLD: 07/12/2020 [facility] 160 mg 07/11/2020 12:00:00 AM EST tablet 90 TAKE ONE TABLET BY MOUTH EVERY DAY TAKE ONE TABLET BY MOUTH EVERY DAY SOLD: 11/04/2020 [facility] 50 mg 07/02/2020 12:00:00 AM EST tablet 120 TAKE ONE TABLET BY MOUTH EVERY 6 HOURS MAXIMUM DAILY DOSE = FOUR TABLETS TAKE ONE TABLET BY MOUTH EVERY 6 HOURS MAXIMUM DAILY DOSE = FOUR TABLETS SOLD: 07/05/2020 [facility] Rosuvastatin calcium 10 MG Oral Tablet ROSUVASTATIN CALCIUM 07/02/2020 12:00:00 AM EST tablet 90 TAKE ONE TABLET BY MOUTH ROBER RY DAY TAKE ONE TABLET BY MOUTH EVERY DAY SOLD: 07/05/2020 [facility] Acetaminophen 325 MG / Hydrocodone Adam trate 5 MG Oral Tablet Hydrocodone- Acetaminophen 5-325 MG Hydrocodone-Acetaminophen 5-325 MG 06/13/2020 12:00:00 AM EST 1.0 {tablet_as_needed} active Hydrocodone-Acetaminophen 5-325 MG eCW1 ([facility]) Acetaminophen 325 MG / Hydrocodone Adam trate 5 MG Oral Tablet Hydrocodone- Acetaminophen 5-325 MG Hydrocodone-Acetaminophen 5-325 MG 06/13/2020 12:00:00 AM EST 1.0 {tablet_as_needed} active Hydrocodone-Acetaminophen 5-325 MG eCW1 ([facility]) 5-325 mg 06/13/2020 12:00:00 AM EST tablet 60 TAKE ONE TABLET BY MOUTH TWICE A DAY NEEDED MAXIMUM DAILY DOSE = TWO TABLETS TAKE ONE TABLET BY MOUTH TWICE A DAY NEEDED MAXIMUM DAILY DOSE = TWO TABLETS SOLD: 06/14/2020 [facility] Acetaminophen 325 MG / Hydrocodone Adam trate 5 MG Oral Tablet Hydrocodone- Acetaminophen 5-325 MG Hydrocodone-Acetaminophen 5-325 MG 06/13/2020 12:00:00 AM EST 1.0 {tablet_as_needed} active Hydrocodone-Acetaminophen 5-325 MG eCW1 ([facility]) Acetaminophen 325 MG / Hydrocodone Adam trate 5 MG Oral Tablet Hydrocodone- Acetaminophen 5-325 MG Hydrocodone-Acetaminophen 5-325 MG 06/13/2020 12:00:00 AM EST 1.0 {tablet_as_needed} active Hydrocodone-Acetaminophen 5-325 MG eCW1 ([facility]) Acetaminophen 325 MG / Hydrocodone Adam trate 5 MG Oral Tablet Hydrocodone- Acetaminophen 5-325 MG Hydrocodone-Acetaminophen 5-325 MG 06/13/2020 12:00:00 AM EST 1.0 {tablet_as_needed} active Hydrocodone-Acetaminophen 5-325 MG eCW1 ([facility]) Acetaminophen 325 MG / Hydrocodone Adam trate 5 MG Oral Tablet Hydrocodone- Acetaminophen 5-325 MG Hydrocodone-Acetaminophen 5-325 MG 06/13/2020 12:00:00 AM EST 1.0 {tablet_as_needed} active Hydrocodone-Acetaminophen 5-325 MG eCW1 ([facility]) 125 mcg 06/12/2020 12:00:00 AM EST tablet 30 TAKE ONE TABLET BY MOUTH EVERY MORNING ON EMPTY STOMACH TAKE ONE TABLET BY MOUTH EVERY MORNING O N EMPTY STOMACH SOLD: 06/12/2020 [facility] 125 mcg 06/12/2020 12:00:00 AM EST tablet 30 TAKE ONE TABLET BY MOUTH EVERY MORNING ON EMPTY STOMACH TAKE ONE TABLET BY MOUTH EVERY MORNING O N EMPTY STOMACH SOLD: 07/16/2020 [facility] 4 mg 05/28/2020 12:00:00 AM EST tablet,disintegrating 4 5 DISSOLVE 1 TABLET UNDER THE TONGUE FOR 2 DOSES EVERY 8 HOURS NEEDED FOR NAUSEA DISSOLVE 1 TABLET UNDER THE TONGUE FOR 2 DOSES EVERY 8 HOURS NEEDED FOR NAUSEA SOLD: 10/09/2020 [facility] 4 mg 05/28/2020 12:00:00 AM EST tablet,disintegrating 4 5 DISSOLVE 1 TABLET UNDER THE TONGUE FOR 2 DOSES EVERY 8 HOURS NEEDED FOR NAUSEA DISSOLVE 1 TABLET UNDER THE TONGUE FOR 2 DOSES EVERY 8 HOURS NEEDED FOR NAUSEA SOLD: 05/29/2020 [facility] 50 mg 05/28/2020 12:00:00 AM EST tablet 120 TAKE ONE TABLET BY MOUTH EVERY 6 HOURS MAXIMUM DAILY DOSE = FOUR TABLETS TAKE ONE TABLET BY MOUTH EVERY 6 HOURS MAXIMUM DAILY DOSE = FOUR TABLETS SOLD: 05/29/2020 [facility] 5 mg 05/20/2020 12:00:00 AM EST tablet 90 TAKE ONE TABLET ONCE A DAY BY MOUTH TAKE ONE TABLET ONCE A DAY BY MOUTH SOLD: 05/22/2020 [facility] 5 mg 05/20/2020 12:00:00 AM EST tablet 90 TAKE ONE TABLET ONCE A DAY BY MOUTH TAKE ONE TABLET ONCE A DAY BY MOUTH SOLD: 09/09/2020 [facility] Acetaminophen 325 MG / Hydrocodone Adam trate 5 MG Oral Tablet Hydrocodone- Acetaminophen 5-325 MG Hydrocodone-Acetaminophen 5-325 MG 05/06/2020 12:00:00 AM EST 1.0 {tablet_as_needed} active Hydrocodone-Acetaminophen 5-325 MG eCW1 ([facility]) Acetaminophen 325 MG / Hydrocodone Adam trate 5 MG Oral Tablet Hydrocodone- Acetaminophen 5-325 MG Hydrocodone-Acetaminophen 5-325 MG 05/06/2020 12:00:00 AM EST 1.0 {tablet_as_needed} active Hydrocodone-Acetaminophen 5-325 MG eCW1 ([facility]) 5-325 mg 05/06/2020 12:00:00 AM EST tablet 60 TAKE ONE TABLET BY MOUTH TWICE A DAY NEEDED MAXIMUM DAILY DOSE = 2 TAKE ONE TABLET BY MOUTH TWICE A DAY NEEDED MAXIMUM DAILY DOSE = 2 SOLD: 05/07/2020 [facility] Acetaminophen 325 MG / Hydrocodone Adam trate 5 MG Oral Tablet Hydrocodone- Acetaminophen 5-325 MG Hydrocodone-Acetaminophen 5-325 MG 05/06/2020 12:00:00 AM EST 1.0 {tablet_as_needed} active Hydrocodone-Acetaminophen 5-325 MG eCW1 ([facility]) Acetaminophen 325 MG / Hydrocodone Adam trate 5 MG Oral Tablet Hydrocodone- Acetaminophen 5-325 MG Hydrocodone-Acetaminophen 5-325 MG 05/06/2020 12:00:00 AM EST 1.0 {tablet_as_needed} active Hydrocodone-Acetaminophen 5-325 MG eCW1 ([facility]) Acetaminophen 325 MG / Hydrocodone Adam trate 5 MG Oral Tablet Hydrocodone- Acetaminophen 5-325 MG Hydrocodone-Acetaminophen 5-325 MG 05/06/2020 12:00:00 AM EST 1.0 {tablet_as_needed} active Hydrocodone-Acetaminophen 5-325 MG eCW1 ([facility]) Acetaminophen 325 MG / Hydrocodone Adam trate 5 MG Oral Tablet Hydrocodone- Acetaminophen 5-325 MG Hydrocodone-Acetaminophen 5-325 MG 05/06/2020 12:00:00 AM EST 1.0 {tablet_as_needed} active Hydrocodone-Acetaminophen 5-325 MG eCW1 ([facility]) 50 mg 04/26/2020 12:00:00 AM EDT tablet 120 TAKE ONE TABLET BY MOUTH EVERY 6 HOURS MAXIMUM DAILY DOSE = FOUR TABLETS TAKE ONE TABLET BY MOUTH EVERY 6 HOURS MAXIMUM DAILY DOSE = FOUR TABLETS SOLD: 04/26/2020 [facility] 125 mcg 04/10/2020 12:00:00 AM EDT tablet 30 TAKE ONE TABLET BY MOUTH EVERY MORNING ON EMPTY STOMACH TAKE ONE TABLET BY MOUTH EVERY MORNING O N EMPTY STOMACH SOLD: 04/11/2020 [facility] 125 mcg 04/10/2020 12:00:00 AM EDT tablet 30 TAKE ONE TABLET BY MOUTH EVERY MORNING ON EMPTY STOMACH TAKE ONE TABLET BY MOUTH EVERY MORNING O N EMPTY STOMACH SOLD: 05/11/2020 [facility] Levothyroxine Sodium 0.125 MG Oral Tablet Levothyroxin e Sodium 125 MCG Levothyroxine Sodium 125 MCG 04/09/2020 12:00:00 AM EDT active Levothyroxine Sodium 125 MCG eCW1 ([facility]) Levothyroxine Sodium 0.125 MG Oral Tablet Levothyroxin e Sodium 125 MCG Levothyroxine Sodium 125 MCG 04/09/2020 12:00:00 AM EDT active Levothyroxine Sodium 125 MCG eCW1 ([facility]) Levothyroxine Sodium 0.125 MG Oral Tablet Levothyroxin e Sodium 125 MCG Levothyroxine Sodium 125 MCG 04/09/2020 12:00:00 AM EDT active Levothyroxine Sodium 125 MCG eCW1 ([facility]) Levothyroxine Sodium 0.125 MG Oral Tablet Levothyroxin e Sodium 125 MCG Levothyroxine Sodium 125 MCG 04/09/2020 12:00:00 AM EDT active Levothyroxine Sodium 125 MCG eCW1 ([facility]) Levothyroxine Sodium 0.125 MG Oral Tablet Levothyroxin e Sodium 125 MCG Levothyroxine Sodium 125 MCG 04/09/2020 12:00:00 AM EDT active Levothyroxine Sodium 125 MCG eCW1 ([facility]) Levothyroxine Sodium 0.125 MG Oral Tablet Levothyroxin e Sodium 125 MCG Levothyroxine Sodium 125 MCG 04/09/2020 12:00:00 AM EDT active Levothyroxine Sodium 125 MCG eCW1 ([facility]) Levothyroxine Sodium 0.125 MG Oral Tablet Levothyroxin e Sodium 125 MCG Levothyroxine Sodium 125 MCG 04/09/2020 12:00:00 AM EDT active Levothyroxine Sodium 125 MCG eCW1 ([facility]) Levothyroxine Sodium 0.125 MG Oral Tablet Levothyroxin e Sodium 125 MCG Levothyroxine Sodium 125 MCG 04/09/2020 12:00:00 AM EDT active Levothyroxine Sodium 125 MCG eCW1 ([facility]) Levothyroxine Sodium 0.125 MG Oral Tablet Levothyroxin e Sodium 125 MCG Levothyroxine Sodium 125 MCG 04/09/2020 12:00:00 AM EDT active Levothyroxine Sodium 125 MCG eCW1 ([facility]) Levothyroxine Sodium 0.125 MG Oral Tablet Levothyroxin e Sodium 125 MCG Levothyroxine Sodium 125 MCG 04/09/2020 12:00:00 AM EDT active Levothyroxine Sodium 125 MCG eCW1 ([facility]) Levothyroxine Sodium 0.125 MG Oral Tablet Levothyroxin e Sodium 125 MCG Levothyroxine Sodium 125 MCG 04/09/2020 12:00:00 AM EDT active Levothyroxine Sodium 125 MCG eCW1 ([facility]) Levothyroxine Sodium 0.125 MG Oral Tablet Levothyroxin e Sodium 125 MCG Levothyroxine Sodium 125 MCG 04/09/2020 12:00:00 AM EDT active Levothyroxine Sodium 125 MCG eCW1 ([facility]) Levothyroxine Sodium 0.125 MG Oral Tablet Levothyroxin e Sodium 125 MCG Levothyroxine Sodium 125 MCG 04/09/2020 12:00:00 AM EDT active Levothyroxine Sodium 125 MCG eCW1 ([facility]) Levothyroxine Sodium 0.125 MG Oral Tablet Levothyroxin e Sodium 125 MCG Levothyroxine Sodium 125 MCG 04/09/2020 12:00:00 AM EDT active Levothyroxine Sodium 125 MCG eCW1 ([facility]) Levothyroxine Sodium 0.125 MG Oral Tablet Levothyroxin e Sodium 125 MCG Levothyroxine Sodium 125 MCG 04/09/2020 12:00:00 AM EDT active Levothyroxine Sodium 125 MCG eCW1 ([facility]) Levothyroxine Sodium 0.125 MG Oral Tablet Levothyroxin e Sodium 125 MCG Levothyroxine Sodium 125 MCG 04/09/2020 12:00:00 AM EDT active Levothyroxine Sodium 125 MCG eCW1 ([facility]) Levothyroxine Sodium 0.125 MG Oral Tablet Levothyroxin e Sodium 125 MCG Levothyroxine Sodium 125 MCG 04/09/2020 12:00:00 AM EDT active Levothyroxine Sodium 125 MCG eCW1 ([facility]) Levothyroxine Sodium 0.125 MG Oral Tablet Levothyroxin e Sodium 125 MCG Levothyroxine Sodium 125 MCG 04/09/2020 12:00:00 AM EDT active Levothyroxine Sodium 125 MCG eCW1 ([facility]) Levothyroxine Sodium 0.125 MG Oral Tablet Levothyroxin e Sodium 125 MCG Levothyroxine Sodium 125 MCG 04/09/2020 12:00:00 AM EDT active Levothyroxine Sodium 125 MCG eCW1 ([facility]) Levothyroxine Sodium 0.125 MG Oral Tablet Levothyroxin e Sodium 125 MCG Levothyroxine Sodium 125 MCG 04/09/2020 12:00:00 AM EDT active Levothyroxine Sodium 125 MCG eCW1 ([facility]) Levothyroxine Sodium 0.125 MG Oral Tablet Levothyroxin e Sodium 125 MCG Levothyroxine Sodium 125 MCG 04/09/2020 12:00:00 AM EDT active Levothyroxine Sodium 125 MCG eCW1 ([facility]) 5-325 mg 03/29/2020 12:00:00 AM EDT tablet 60 TAKE ONE TABLET BY MOUTH TWICE A DAY NEEDED FOR PAIN MAXIMUM DAILY DOSE = 2 TAKE ONE TABLET BY MOUTH TWICE A DAY NEEDED FOR PAIN MAXIMUM DAILY DOSE = 2 SOLD: 03/29/2020 [facility] 50 mcg/actuation 03/29/2020 12:00:00 AM EDT spray,suspension 16 SPRAY TWO SPRAYS IN EACH NOSTRIL EVERY DAY DIRECTED SPRAY TWO SPRAYS IN EACH NOSTRIL EVERY DAY DIRECTED SOLD: 04/02/2020 [facility] 50 mg 03/28/2020 12:00:00 AM EDT tablet 120 TAKE ONE TABLET BY MOUTH EVERY 6 HOURS MAXIMUM DAILY DOSE = 4 TABLETS TAKE ONE TABLET BY MOUTH EVERY 6 HOURS MAXIMUM DAILY DOSE = 4 TABLETS SOLD: 03/28/2020 [facility] 160 mg 03/22/2020 12:00:00 AM EDT tablet 90 TAKE ONE TABLET BY MOUTH EVERY DAY TAKE ONE TABLET BY MOUTH EVERY DAY SOLD: 03/26/2020 [facility] Rosuvastatin calcium 10 MG Oral Tablet ROSUVASTATIN CALCIUM 02/29/2020 12:00:00 AM EDT tablet 90 TAKE ONE TABLET BY MOUTH AT BEDTIME TAKE ONE TABLET BY MOUTH AT BEDTIME SOLD: 03/05/2020 [facility] 50 mg 02/27/2020 12:00:00 AM EDT tablet 120 TAKE ONE TABLET BY MOUTH EVERY 6 HOURS MAXIMUM DAILY DOSE = FOUR TABLETS TAKE ONE TABLET BY MOUTH EVERY 6 HOURS MAXIMUM DAILY DOSE = FOUR TABLETS SOLD: 02/28/2020 [facility] 5-325 mg 02/19/2020 12:00:00 AM EDT tablet 60 TAKE ONE TABLET BY MOUTH TWICE A DAY NEEDED FOR PAIN MAXIMUM DAILY DOSE = 2 TABLETS TAKE ONE TABLET BY MOUTH TWICE A DAY NEEDED FOR PAIN MAXIMUM DAILY DOSE = 2 TABLETS SOLD: 02/19/2020 [facility] 2 mg 04/05/2019 12:00:00 AM EDT tablet 90 TAKE ONE TABLET BY MOUTH THREE TIMES A DAY NEEDED TAKE ONE TABLET BY MOUTH THREE TIMES A DAY NEEDED S OLD: 03/05/2020 [facility] Insurance Providers Payer name Policy type / Coverage type Policy ID Covered green party ID Covered green party's relationship to green Policy Green Plan Information STEFANY العراقي Commercial [id number] Self [id number] [place] Medig[place] Part B [id number] Self [id number] [place] PPO 302/307 [id number] SP [id number] [place] () Workers Compensation [id number] Self [id number] [place] () Workers Compensation [id number] Self [id number] [place] [id number] S VYA [id number] [place] [id number] S VYA [id number] [employer] [id number] ANSI-Commercial [id number] ANSI-Commercial [id number] [employer] [id number] [employer] [id number] ANSI-Commercial [id number] ANSI-Commercial [id number] ANSI-Commercial [id number] ANSI-Commercial [id number] BCBS [employer] [id number] Self [id number] ANSI-Commercial [id number] BCBS [employer] [id number] Self [id number] BCBS [employer] [id number] Self [id number] ANSI-Com[employer] [id number] ANSI-Commercial [id number] ANSI-Commercial [id number] ANSI-Commercial [id number] ANSI-Commercial [id number] ANSI-Commercial [id number] ANSI-Commercial [id number] ANSI-Commercial [id number] [place] PPO 302/307 [id number] SP [id number] ANSI-Commercial [id number] ANSI-Commercial [id number] ANSI-Commercial [id number] ANSI-Commercial [id number] ANSI-Commercial [id number] ANSI-Commercial [id number] ANSI-Commercial [id number] ANSI-Commercial [id number] ANSI-Commercial [id number] [place] [id number] S [id number] [facility] [id number] SP [id number] [facility] O [id number] S [id number] [facility] CHILDR[facility]ES HO [id number] SP [id number] [employer] WC [id number] SP [id number] [employer] BCBS B [id number] S [id number] SELF PAY ONLY UNAVAILABLE UNAV AILABLE SELF PAY UNAVAILABLE UNAVAILA BLE SELF PAY ONLY - SP1 UNAVAILABLE SP UNAVAILABLE [place] PPO 302/307 [id number] SP [id number] [facility] [id number] SP [id number] OTHER WORKERS COMPENSATION [id number] SP [id number] [place] PPO 302/307 [id number] SP [id number] [employer] [place] 302/307 [id number] SP [id number] [employer] [place] 302/307 [id number] SP [id number] [facility] [id number] S [id number] [employer] B [id number] S [id number] ANSI-Commercial [id number] ANSI-Commercial [id number] Problems, Conditions, and Diagnoses Code Display Name Description Problem Type Effective Dates Data Source(s) Y93.01 Activity, walking, marching and hiking A CTIVITY, WALKING, MARCHING AND HIKING Diagnosis 07/03/2020 05:42:00 PM [facility] Y92.[address] in unspeci fied non-institutional (private) residence as the place of occurrence of the external cause UNSP PLACE IN UNSP NON-INSTITUT (PRIVATE) RESIDENC Diagnosis 07/03/2020 05:42:00 PM [facility] l W00.0XXA Fall on same level due to ice and snow, initial encounter FALL ON SAME LEVEL DUE TO ICE AND SNOW, INITIAL EN Diagnosis 07/03/2020 05:42:00 PM [facility] 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 JAIL (CURRENT) USE OF OPIATE ANALGESIC Diagnosis 07/03/2020 05:42:00 PM [facility] Z79.899 Other roasterman (current) drug therapy O THER JAIL (CURRENT) DRUG THERAPY Diagnosis 07/03/2020 05:42:00 PM [facility] l I10 Essential (primary) hypertension ESSENTIAL (PRIMARY) H YPERTENSION Diagnosis 07/03/2020 05:42:00 PM [facility] S60.222A Contusion of left hand, initial encounte r CONTUSION OF LEFT HAND, INITIAL ENCOUNTER Diagnosis 07/03/2020 05:42:00 PM [facility] l S60.212A Contusion of left wrist, initial encount er CONTUSION OF LEFT WRIST, INITIAL ENCOUNTER Diagnosis 07/03/2020 05:42:00 PM [facility] l S69.92XA Unspecified injury of left w rist, hand and finger(s), initial encounter UNSP INJURY OF LEFT WRIST, HAND AND FINGER(S), INIT ENCNTR D iagnosis 07/03/2020 05:42:00 PM [facility] [id number] Constipation Constipation Problem 04/08/2021 12:00:00 A M EDT [facility] ([facility]) K21.9 [id number] Gastroesophageal ref lux disease, unspecified whether esophagitis present Problem 02/07/2021 12:00:00 AM EDT eCW1 ([facility]) E03.9 [id number] Acquired hypothyroidism Problem 04/09/2020 1 2:00:00 AM EDT eCW1 ([facility]) Surgeries/Procedures Procedure Description Date Indications Data Source(s) OFFICE OUTPATIENT VISIT 25 MINUTES 04/08/2021 12:00:00 AM EDT [facility] ([facility]) Results ID Date Data Source TSH 01/15/2021 12:00:00 AM EDT eCW1 (Formerly [facility]) Name Value Range Interpretation Code Description Data Maria Isabel rce(s) Supporting Document(s) 0.021 0.358-3.740 THYROID STIMULATING HORM ONE eCW1 ([facility]) ID Date Data Source FREE T4 08/08/2020 12:00:00 AM EST eCW1 ([facility], [facility]) Name Value Range Interpretation Code Description Data Maria Isabel rce(s) Supporting Document(s) 1.27 0.76-1.46 FREE T4 eCW1 ([facility]) ID Date Data Source URINE CULTURE 07/29/2020 12:00:00 AM EST eCW1 ([facility]) Name Value Range Interpretation Code Description Data Maria Isabel rce(s) Supporting Document(s) URINE CULTURE eCW1 ([facility]) ID Date Data Source [id number] 07/12/2020 11:13:00 AM EST [facility] Name Value Range Interpretation Code Description Data Maria Isabel rce(s) Supporting Document(s) SARS coronavirus 2 RNA Detected [facility] This lab was ordered by [facility] and reported by [facility]. ID Date Data Source Coronavirus 2019 NOSE (Send Out) COVID 07/12/2020 12:00:00 A M EST eCW1 ([facility]) Name Value Range Interpretation Code Description Data Maria Isabel rce(s) Supporting Document(s) This nucleic acid amplification test was developed and its CORONAVIRUS 2019 NOSE W ([facility]) ID Date Data Source [id number] 07/04/2020 06:08:00 AM [facility] Patient: YASHIRA CAZARES [facility]ation [facility].VisitID: [id number] [place] [address] [phone], FRegistration Date/Time: 07/03/2020 15:51 Weight:70.3 kg (E). Height/Length:66 inches (E). BMI:25 PAST HISTORYProblems:Liver problems.Chronic neck pain.Hypertension.Rib Fracture. Additional Surgeries:Neck Surgery.Shoulder Surgery. Medications:tiZANidine HCl Oral (Tablet 2 mg) 1 tablet, as needed, last dose unknown.Levothyroxine Sodium Oral (Tablet 125 mcg) 1 tablet, daily, last dose today.amLODIPine Besylate Oral (Tablet 5 mg) 1 tablet, daily, last dose today.Valsartan Oral (Tablet 160 mg) 1 tablet, daily, last dose today.Rosuvastatin Calcium Oral 10 mg, daily, last dose today.HYDROcodone-Acetaminophen Oral (Tablet 5-325 mg) 1 tablet, as needed, last dose today.TraMADol HCl Oral 50 mg, daily as needed, last dose today. Allergies:No Known Drug Allergy. FAMILY HISTORYNo significant family medical history. INSTRUCTIONSYour Current Medications: Your current home medications have been reviewed. CONTINUE TAKING THE FOLLOWING MEDICATIONS:amLODIPine Besylate Oral : Tablet 5 mg, 1 tablet daily, Last: today. HYDROcodone-Acetaminophen Oral : Tablet 5-325 mg, 1 tablet, Last: today, prn. Levothyroxine Sodium Oral : Tablet 125 mcg, 1 tablet daily, Last: today. Rosuvastatin Calcium Oral : 10 mg daily, Last: today. tiZANidine HCl Oral : Tablet 2 mg, 1 tablet, Last: unknown, prn. TraMADol HCl Oral : 50 mg daily, Last: today, prn. Valsartan Oral : Tablet 160 mg, 1 tablet daily, Last: today. (Electronically signed by Brandee Hager MD 07/04/2020 01:34) Name Value Range Interpretation Code Description Data Maria Isabel rce(s) Supporting Document(s) ID Date Data Source [id number] 07/03/2020 05:55:00 PM EST [facility] DATE OF EXAMINATION: 07/03/2020 16:31 ES T TECHNIQUE: 4 views of the left wrist were obtained. HISTORY: Trauma. Fall. FINDINGS: No evidence of acute fracture or dislocation. Carpal bone alignment is normal. No aggressive osseous lesions or erosions. Bone mineral density is unremarkable.Visualized soft tissues are normal. IMPRESSION: No evidence of acute fracture or dislocation. If there is clinical concern for a scaphoid fracture, a dedicated scaphoid viewand/or repeat radiographs in 7-10 days may be helpful. Electronically signed in [id number] by: Miko Ma M.D. 07/03/2020 17:49 EST Name Value Range Interpretation Code Description Data Maria Isabel rce(s) Supporting Document(s) ID Date Data Source [id number] 07/03/2020 05:54:00 PM EST [facility] DATE OF EXAMINATION: 07/03/2020 16:31 ES T TECHNIQUE: AP and lateral views of the left forearm were obtained. HISTORY: Fall. FINDINGS: There is no fracture, dislocation or arthritic changes. Bones and soft tissuesappear normal. IMPRESSION: Unremarkable study of the forearm. Electronically signed in [id number] by: Miko Ma M.D. 07/03/2020 17:48 EST Name Value Range Interpretation Code Description Data Maria Isabel rce(s) Supporting Document(s) ID Date Data Source [id number] 07/03/2020 05:53:00 PM EST [facility] DATE OF EXAMINATION: 07/03/2020 16:31 ES T TECHNIQUE: 4 views of the left hand were obtained. HISTORY: Trauma. Fall. FINDINGS: No evidence of acute fracture or dislocation. Alignment is normal.. Alignment isnormal. No aggressive osseous lesions or erosions. Bone mineral density isunremarkable. Visualized soft tissues are normal. IMPRESSION: No evidence of acute fracture or dislocation. Electronically signed in [id number] by: Miko Ma M.D. 07/03/2020 17:48 EST Name Value Range Interpretation Code Description Data Maria Isabel rce(s) Supporting Document(s) ID Date Data Source [id number] 07/02/2020 09:23:00 AM EST MEDENT ([facility] [employer]) Name Value Range Interpretation Code Description Data Maria Isabel rce(s) Supporting Document(s) Ultrasound of the Liver Laboratory test result MED[facility] ([facility]) ID Date Data Source [id number] 06/24/2020 12:05:00 PM EST [facility] ([facility]) Name Value Range Interpretation Code Description Data [facility] rce(s) Supporting Document(s) Gamma glutamyl transferase [Enzymatic activity/volume] in Serum or Plasma 53 U/L 5-55 [facility] ([facility] ) labs are good mild increase in alk phosp hatase would repeat it in 3 months. ID Date Data Source [id number] 06/24/2020 12:05:00 PM EST [facility] ([facility]) Name Value Range Interpretation Code Description Data [facility](s) Supporting Document(s) Glucose, Fasting 97 mg/dL 70-100 [facility] ([facility]) labs are good mild increase in alk phosp hatase would repeat it in 3 months. Creatinine For GFR 0.94 mg/dL 0.55-1.30 [facility]) labs are good mild increase in alk phosp hatase would repeat it in 3 months. Blood Urea Nitrogen 19 mg/dL 7-18 [facility] ([facility]) labs are good mild increase in alk phosp hatase would repeat it in 3 months. Glomerular Filtration Rate Laboratory test result [facility] ([facility]) labs are good mild increase in alk phosp hatase would repeat it in 3 months. Potassium Serum 4.5 meq/L 3.5-5.1 [facility] ([facility]) labs are good mild increase in alk phosp hatase would repeat it in 3 months. Chloride Level 102 meq/L 98-107 [facility]) labs are good mild increase in alk phosp hatase would repeat it in 3 months. Sodium Level 137 meq/L 136-145 [facility] ([facility]) labs are good mild increase in alk phosp hatase would repeat it in 3 months. Calcium Level 9.5 mg/dL 8.5-10.1 [facility] ([facility]) labs are good mild increase in alk phosp hatase would repeat it in 3 months. Anion Gap 7 meq/L 8-16 [facility] labs are good mild increase in alk phosp hatase would repeat it in 3 months. Carbon Dioxide Level 28 meq/L 21-32 [facility] ([facility]) labs are good mild increase in alk phosp hatase would repeat it in 3 months. Ast/Sgot 19 U/L 7-37 [facility]) labs are good mild increase in alk phosp hatase would repeat it in 3 months. Alkaline Phosphatase 147 U/L 45-117 [facility]) labs are good mild increase in alk phosp hatase would repeat it in 3 months. Alt/SGPT 32 U/L 12-78 [facility]) labs are good mild increase in alk phosp hatase would repeat it in 3 months. Total Protein 7.3 GM/DL 6.4-8.2 [facility] ([facility]) labs are good mild increase in alk phosp hatase would repeat it in 3 months. Bilirubin,Total 0.2 mg/dL 0.2-1.0 [facility] ([facility]) labs are good mild increase in alk phosp hatase would repeat it in 3 months. Albumin 3.7 GM/DL 3.2-5.2 [facility] ([facility]) labs are good mild increase in alk phosp hatase would repeat it in 3 months. Albumin/Globulin Ratio 1.0 1.2-2.2 [facility] ([facility]) labs are good mild increase in alk phosp hatase would repeat it in 3 months. ID Date Data Source [id number] 06/24/2020 12:05:00 PM EST [facility] ([facility]) Name Value Range Interpretation Code Description Data Maria Isabel rce(s) Supporting Document(s) Laboratory test finding (navigational concept) 145 IU/L 39-117 [facility] ([facility]) labs are good mild increase in alk phosp hatase would repeat it in 3 months. Laboratory test finding (navigational concept) 31 % 14-68 [facility] ([facility]) labs are good mild increase in alk phosp hatase would repeat it in 3 months. Laboratory test finding (navigational concept) 0 % 0-18 [facility] ([facility]) labs are good mild increase in alk phosp hatase would repeat it in 3 months. Laboratory test finding (navigational concept) 69 % 18-85 [facility] ([facility]) labs are good mild increase in alk phosp hatase would repeat it in 3 months. ID Date Data Source [id number] 06/24/2020 12:05:00 PM EST [facility] ([facility]) Name Value Range Interpretation Code Description Data Maria Isabel rce(s) Supporting Document(s) Alkaline phosphatase.bone [Enzymatic activity/volume] in Serum or Plasma Laboratory test result [facility] ([facility]) Procedure Social History Code Duration Value Status Description Data Source(s ) Smoking 03/18/2021 12:00:00 AM EDT Former Smoker completed Former Smoker eCW1 ([facility]) Smoking 03/18/2021 12:00:00 AM EDT Former Smoker completed Former Smoker eCW1 ([facility]) Smoking 02/07/2021 12:00:00 AM EDT Former Smoker completed Former Smoker eCW1 ([facility]) Smoking 02/07/2021 12:00:00 AM EDT Former Smoker completed Former Smoker eCW1 ([facility]) Smoking 02/07/2021 12:00:00 AM EDT Former Smoker completed Former Smoker eCW1 ([facility]) Smoking 02/07/2021 12:00:00 AM EDT Former Smoker completed Former Smoker eCW1 ([facility]) Smoking 02/07/2021 12:00:00 AM EDT Former Smoker completed Former Smoker eCW1 ([facility]) Smoking 02/07/2021 12:00:00 AM EDT Former Smoker completed Former Smoker eCW1 ([facility]) Smoking 01/15/2021 12:00:00 AM EDT Former Smoker completed Former Smoker eCW1 ([facility]) Smoking 01/15/2021 12:00:00 AM EDT Former Smoker completed Former Smoker eCW1 ([facility]) Smoking 01/15/2021 12:00:00 AM EDT Former Smoker completed Former Smoker eCW1 ([facility]) Smoking 08/08/2020 12:00:00 AM EST Former Smoker completed Former Smoker eCW1 ([facility]) Smoking 08/08/2020 12:00:00 AM EST Former Smoker completed Former Smoker eCW1 ([facility]) Smoking 08/08/2020 12:00:00 AM EST Former Smoker completed Former Smoker eCW1 ([facility]) Smoking 08/08/2020 12:00:00 AM EST Former Smoker completed Former Smoker eCW1 ([facility]) Smoking 08/08/2020 12:00:00 AM EST Former Smoker completed Former Smoker eCW1 ([facility]) Smoking 08/08/2020 12:00:00 AM EST Former Smoker completed Former Smoker eCW1 ([facility]) Smoking 08/08/2020 12:00:00 AM EST Former Smoker completed Former Smoker eCW1 ([facility]) Smoking 08/08/2020 12:00:00 AM EST Former Smoker completed Former Smoker eCW1 ([facility]) Smoking 08/08/2020 12:00:00 AM EST Former Smoker completed Former Smoker eCW1 ([facility]) Smoking 08/08/2020 12:00:00 AM EST Former Smoker completed Former Smoker eCW1 ([facility]) Smoking 08/08/2020 12:00:00 AM EST Former Smoker completed Former Smoker eCW1 ([facility]) Smoking 08/08/2020 12:00:00 AM EST Former Smoker completed Former Smoker eCW1 ([facility]) Smoking 07/29/2020 12:00:00 AM EST Former Smoker completed Former Smoker eCW1 ([facility]) Smoking 07/29/2020 12:00:00 AM EST Former Smoker completed Former Smoker eCW1 ([facility]) Smoking 07/29/2020 12:00:00 AM EST Former Smoker completed Former Smoker eCW1 ([facility]) Smoking 07/12/2020 12:00:00 AM EST Former Smoker completed Former Smoker eCW1 ([facility]) Smoking 07/12/2020 12:00:00 AM EST Former Smoker completed Former Smoker eCW1 ([facility]) Smoking 07/12/2020 12:00:00 AM EST Former Smoker completed Former Smoker eCW1 ([facility]) Smoking 07/12/2020 12:00:00 AM EST Former Smoker completed Former Smoker eCW1 ([facility]) Smoking 05/09/2020 12:00:00 AM EST Former Smoker completed Former Smoker eCW1 ([facility]) Smoking 05/09/2020 12:00:00 AM EST Former Smoker completed Former Smoker eCW1 ([facility]) Smoking 05/09/2020 12:00:00 AM EST Former Smoker completed Former Smoker eCW1 ([facility]) Smoking 05/09/2020 12:00:00 AM EST Former Smoker completed Former Smoker eCW1 ([facility]) Smoking 05/09/2020 12:00:00 AM EST Former Smoker completed Former Smoker eCW1 ([facility]) Smoking 05/09/2020 12:00:00 AM EST Former Smoker completed Former Smoker eCW1 ([facility]) Smoking 05/09/2020 12:00:00 AM EST Former Smoker completed Former Smoker eCW1 ([facility]) Vital Signs ID Date Data Source UNK Name Value Range Interpretation Code Description Data Source(s) Body weight 86.184 kg 86.184 kg [facility] ([facility]) Body temperature 97.3 [degF] 97.3 [degF] [facility] ([facility]) Body height 67.5 [in_i] 67.5 [in_i] [facility] ([facility]) 5'7.50" Body weight 190.00 [lb_av] 190.00 [lb_av] MEDEN T ([facility]) Systolic blood pressure 136 mm[Hg] 136 mm[Hg] M EDENT ([facility]) Diastolic blood pressure 79 mm[Hg] 79 mm[Hg] [facility] ([facility]) Heart rate 72 /min 72 /min [facility] ([facility]) Body mass index (BMI) [Ratio] 29.3 kg/m2 29.3 k g/m2 [facility] ([facility]) Body weight 189 [lb_av] 189 [lb_av] eCW1 ([facility]) Body temperature 98.1 [degF] 98.1 [degF] eCW1 ( [facility]) Systolic blood pressure 135 mm[Hg] 135 mm[Hg] e CW1 ([facility]) Diastolic blood pressure 86 mm[Hg] 86 mm[Hg] eCW1 ([facility]) Body weight 85.73 kg 85.73 kg eCW1 ([facility], [facility]) Body height 67 [in_i] 67 [in_i] eCW1 ([facility], [facility]) Body mass index (BMI) [Ratio] 29.60 kg/m2 29.60 kg/m2 eCW1 ([facility]) Heart rate 82 /min 82 /min eCW1 ([facility]) Respiratory rate 18 /min 18 /min eCW1 ([facility]) Body weight 184 [lb_av] 184 [lb_av] eCW1 ([facility]ly [facility]) Body height 67 [in_i] 67 [in_i] eCW1 ([facility]) Body mass index (BMI) [Ratio] 28.82 kg/m2 28.82 kg/m2 eCW1 ([facility]) Heart rate 80 /min 80 /min eCW1 ([facility]) Respiratory rate 18 /min 18 /min eCW1 ([facility]) Body temperature 97.9 [degF] 97.9 [degF] eCW1 ( [facility]) Systolic blood pressure 124 mm[Hg] 124 mm[Hg] e CW1 ([facility]) Diastolic blood pressure 77 mm[Hg] 77 mm[Hg] eCW1 ([facility]) Body weight 184 [lb_av] 184 [lb_av] eCW1 ([facility]) Body height 67 [in_i] 67 [in_i] eCW1 ([facility]) Body mass index (BMI) [Ratio] 28.82 kg/m2 28.82 kg/m2 eCW1 ([facility]) Heart rate 80 /min 80 /min eCW1 ([facility]) Respiratory rate 18 /min 18 /min eCW1 ([facility]) Body temperature 98.3 [degF] 98.3 [degF] eCW1 ( [facility]) Systolic blood pressure 121 mm[Hg] 121 mm[Hg] e CW1 ([facility]) Diastolic blood pressure 67 mm[Hg] 67 mm[Hg] eCW1 ([facility]) Body weight 186 [lb_av] 186 [lb_av] eCW1 ([facility]) Body height 67 [in_i] 67 [in_i] eCW1 ([facility]) Body mass index (BMI) [Ratio] 29.13 kg/m2 29.13 kg/m2 eCW1 ([facility]) Heart rate 73 /min 73 /min eCW1 ([facility]) Respiratory rate 18 /min 18 /min eCW1 ([facility]) Body temperature 98.4 [degF] 98.4 [degF] eCW1 ( [facility]) Systolic blood pressure 128 mm[Hg] 128 mm[Hg] e CW1 ([facility]) Diastolic blood pressure 73 mm[Hg] 73 mm[Hg] eCW1 ([facility]) Body weight 186 [lb_av] 186 [lb_av] eCW1 ([facility]) Body mass index (BMI) [Ratio] 29.13 kg/m2 29.13 kg/m2 eCW1 ([facility]) Heart rate 84 /min 84 /min eCW1 ([facility]) Respiratory rate 18 /min 18 /min eCW1 ([facility]) Body temperature 98.1 [degF] 98.1 [degF] eCW1 ( [facility]) Body height 67 [in_i] 67 [in_i] eCW1 ([facility]) Systolic blood pressure 117 mm[Hg] 117 mm[Hg] e CW1 ([facility]) Diastolic blood pressure 75 mm[Hg] 75 mm[Hg] eCW1 ([facility]) Body weight 188 [lb_av] 188 [lb_av] eCW1 ([facility]) Body height 67 [in_i] 67 [in_i] eCW1 ([facility]) Body mass index (BMI) [Ratio] 29.44 kg/m2 29.44 kg/m2 eCW1 ([facility]) Heart rate 88 /min 88 /min eCW1 ([facility]) Respiratory rate 18 /min 18 /min eCW1 ([facility]) Body temperature 98.3 [degF] 98.3 [degF] eCW1 ( [facility]) Systolic blood pressure 129 mm[Hg] 129 mm[Hg] e CW1 ([facility]) Diastolic blood pressure 82 mm[Hg] 82 mm[Hg] eCW1 ([facility]) Body height 67.5 [in_i] 67.5 [in_i] [facility] ([facility]) 5'7.50" Body weight 186.00 [lb_av] 186.00 [lb_av] MEDEN T ([facility]) Systolic blood pressure 133 mm[Hg] 133 mm[Hg] M EDENT ([facility]) Diastolic blood pressure 78 mm[Hg] 78 mm[Hg] [facility] ([facility]) Heart rate 71 /min 71 /min [facility] ([facility]) Body mass index (BMI) [Ratio] 28.7 kg/m2 28.7 k g/m2 [facility] ([facility]) Body weight 84.370 kg 84.370 kg [facility] ([facility]) Body temperature 97.3 [degF] 97.3 [degF] [facility] ([facility]) Body weight 185 [lb_av] 185 [lb_av] eCW1 ([facility]) Body height 67 [in_i] 67 [in_i] eCW1 ([facility]) Body mass index (BMI) [Ratio] 28.97 kg/m2 28.97 kg/m2 eCW1 ([facility]) Heart rate 85 /min 85 /min eCW1 ([facility]) Respiratory rate 18 /min 18 /min eCW1 ([facility]) Body temperature 98.8 [degF] 98.8 [degF] eCW1 ( [facility]) Systolic blood pressure 119 mm[Hg] 119 mm[Hg] e CW1 ([facility]) Diastolic blood pressure 69 mm[Hg] 69 mm[Hg] eCW1 ([facility]) Patient Treatment Plan of Care Planned Activity Planned Date Details Description Data Source (s) Acetaminophen 325 MG / Hydrocodone Bitartrate 5 MG Ora l Tablet 04/02/2021 12:00:00 AM EDT eCW1 ([facility]) Lidocaine Hydrochloride 0.05 MG/MG Transdermal Patch [ Lidoderm] 03/18/2021 12:00:00 AM EDT eCW1 ([facility]) tramadol hydrochloride 50 MG Oral Tablet 03/18/2021 12:00:00 AM EDT eCW1 ([facility]) Lidocaine Hydrochloride 0.05 MG/MG Transdermal Patch [ Lidoderm] 03/18/2021 12:00:00 AM EDT eCW1 ([facility]) tramadol hydrochloride 50 MG Oral Tablet 03/18/2021 12:00:00 AM EDT eCW1 ([facility]) Acetaminophen 325 MG / Hydrocodone Bitartrate 5 MG Ora l Tablet 02/18/2021 12:00:00 AM EDT eCW1 ([facility]) Acetaminophen 325 MG / Hydrocodone Bitartrate 5 MG Ora l Tablet 02/18/2021 12:00:00 AM EDT eCW1 ([facility]) Acetaminophen 325 MG / Hydrocodone Bitartrate 5 MG Ora l Tablet 02/18/2021 12:00:00 AM EDT eCW1 ([facility]) tramadol hydrochloride 50 MG Oral Tablet 02/10/2021 12:00:00 AM EDT eCW1 ([facility]) tramadol hydrochloride 50 MG Oral Tablet 02/10/2021 12:00:00 AM EDT eCW1 ([facility]) tramadol hydrochloride 50 MG Oral Tablet 02/10/2021 12:00:00 AM EDT eCW1 ([facility]) tramadol hydrochloride 50 MG Oral Tablet 02/10/2021 12:00:00 AM EDT eCW1 ([facility]) tramadol hydrochloride 50 MG Oral Tablet 02/10/2021 12:00:00 AM EDT eCW1 ([facility]) Omeprazole 20 MG Delayed Release Oral Capsule 02/07/2021 12:00:00 A M EDT eCW1 ([facility]) Omeprazole 20 MG Delayed Release Oral Capsule 02/07/2021 12:00:00 A M EDT eCW1 ([facility]) Omeprazole 20 MG Delayed Release Oral Capsule 02/07/2021 12:00:00 A M EDT eCW1 ([facility]) POLYETHYLENE GLYCOL 3350 142 MG/ML Oral Solution [Delphine lax] 02/07/2021 12:00:00 AM EDT eCW1 ([facility]) Omeprazole 20 MG Delayed Release Oral Capsule 02/07/2021 12:00:00 A M EDT eCW1 ([facility]) POLYETHYLENE GLYCOL 3350 142 MG/ML Oral Solution [Delphine lax] 02/07/2021 12:00:00 AM EDT eCW1 ([facility]) POLYETHYLENE GLYCOL 3350 142 MG/ML Oral Solution [Delphine lax] 02/07/2021 12:00:00 AM EDT eCW1 ([facility]) Omeprazole 20 MG Delayed Release Oral Capsule 02/07/2021 12:00:00 A M EDT eCW1 ([facility]) POLYETHYLENE GLYCOL 3350 142 MG/ML Oral Solution [Delphine lax] 02/07/2021 12:00:00 AM EDT eCW1 ([facility]) Omeprazole 20 MG Delayed Release Oral Capsule 02/07/2021 12:00:00 A M EDT eCW1 ([facility]) POLYETHYLENE GLYCOL 3350 142 MG/ML Oral Solution [Delphine lax] 02/07/2021 12:00:00 AM EDT eCW1 ([facility]) Omeprazole 20 MG Delayed Release Oral Capsule 02/07/2021 12:00:00 A M EDT eCW1 ([facility]) POLYETHYLENE GLYCOL 3350 142 MG/ML Oral Solution [Delphine lax] 02/07/2021 12:00:00 AM EDT eCW1 ([facility]) Omeprazole 20 MG Delayed Release Oral Capsule 02/07/2021 12:00:00 A M EDT eCW1 ([facility]) Acetaminophen 325 MG / Hydrocodone Bitartrate 5 MG Ora l Tablet 01/16/2021 12:00:00 AM EDT eCW1 ([facility]) Acetaminophen 325 MG / Hydrocodone Bitartrate 5 MG Ora l Tablet 01/16/2021 12:00:00 AM EDT eCW1 ([facility]) Acetaminophen 325 MG / Hydrocodone Bitartrate 5 MG Ora l Tablet 01/16/2021 12:00:00 AM EDT eCW1 ([facility]) Acetaminophen 325 MG / Hydrocodone Bitartrate 5 MG Ora l Tablet 12/05/2020 12:00:00 AM EDT eCW1 ([facility]) Acetaminophen 325 MG / Hydrocodone Bitartrate 5 MG Ora l Tablet 12/05/2020 12:00:00 AM EDT eCW1 ([facility]) Acetaminophen 325 MG / Hydrocodone Bitartrate 5 MG Ora l Tablet 12/05/2020 12:00:00 AM EDT eCW1 ([facility]) Acetaminophen 325 MG / Hydrocodone Bitartrate 5 MG Ora l Tablet 10/29/2020 12:00:00 AM EDT eCW1 ([facility]) Acetaminophen 325 MG / Hydrocodone Bitartrate 5 MG Ora l Tablet 10/29/2020 12:00:00 AM EDT eCW1 ([facility]) Acetaminophen 325 MG / Hydrocodone Bitartrate 5 MG Ora l Tablet 10/29/2020 12:00:00 AM EDT eCW1 ([facility]) Acetaminophen 325 MG / Hydrocodone Bitartrate 5 MG Ora l Tablet 09/27/2020 12:00:00 AM EDT eCW1 ([facility]) Acetaminophen 325 MG / Hydrocodone Bitartrate 5 MG Ora l Tablet 09/27/2020 12:00:00 AM EDT eCW1 ([facility]) Acetaminophen 325 MG / Hydrocodone Bitartrate 5 MG Ora l Tablet 09/27/2020 12:00:00 AM EDT eCW1 ([facility]) Acetaminophen 325 MG / Hydrocodone Bitartrate 5 MG Ora l Tablet 08/28/2020 12:00:00 AM EST eCW1 ([facility]) Levothyroxine Sodium 0.1 MG Oral Tablet 08/13/2020 12:00:00 AM EST eCW1 ([facility]) Levothyroxine Sodium 0.1 MG Oral Tablet 08/13/2020 12:00:00 AM EST eCW1 ([facility]) Levothyroxine Sodium 0.1 MG Oral Tablet 08/13/2020 12:00:00 AM EST eCW1 ([facility]) Levothyroxine Sodium 0.1 MG Oral Tablet 08/13/2020 12:00:00 AM EST eCW1 ([facility]) Levothyroxine Sodium 0.1 MG Oral Tablet 08/13/2020 12:00:00 AM EST eCW1 ([facility]) Levothyroxine Sodium 0.1 MG Oral Tablet 08/13/2020 12:00:00 AM EST eCW1 ([facility]) Levothyroxine Sodium 0.1 MG Oral Tablet 08/13/2020 12:00:00 AM EST eCW1 ([facility]) Levothyroxine Sodium 0.1 MG Oral Tablet 08/13/2020 12:00:00 AM EST eCW1 ([facility]) Levothyroxine Sodium 0.1 MG Oral Tablet 08/13/2020 12:00:00 AM EST eCW1 ([facility]) Levothyroxine Sodium 0.1 MG Oral Tablet 08/13/2020 12:00:00 AM EST eCW1 ([facility]) Levothyroxine Sodium 0.1 MG Oral Tablet 08/13/2020 12:00:00 AM EST eCW1 ([facility]) Levothyroxine Sodium 0.1 MG Oral Tablet 08/13/2020 12:00:00 AM EST eCW1 ([facility]) Levothyroxine Sodium 0.1 MG Oral Tablet 08/13/2020 12:00:00 AM EST eCW1 ([facility]) Levothyroxine Sodium 0.1 MG Oral Tablet 08/13/2020 12:00:00 AM EST eCW1 ([facility]) NITROFURANTOIN, MACROCRYSTALS 25 MG / Ni trofurantoin, Monohydrate 75 MG Oral Capsule [Macrobid] 07/29/2020 12:00:00 AM EST eC W1 ([facility]) NITROFURANTOIN, MACROCRYSTALS 25 MG / Ni trofurantoin, Monohydrate 75 MG Oral Capsule [Macrobid] 07/29/2020 12:00:00 AM EST eC W1 ([facility]) NITROFURANTOIN, MACROCRYSTALS 25 MG / Ni trofurantoin, Monohydrate 75 MG Oral Capsule [Macrobid] 07/29/2020 12:00:00 AM EST eC W1 ([facility]) Acetaminophen 325 MG / Hydrocodone Bitartrate 5 MG Ora l Tablet 07/22/2020 12:00:00 AM EST eCW1 ([facility]) Augmentin 875-125 MG 07/16/2020 12:00:00 AM EST eCW1 ([facility]) Augmentin 875-125 MG 07/16/2020 12:00:00 AM EST eCW1 ([facility]) Augmentin 875-125 MG 07/16/2020 12:00:00 AM EST eCW1 ([facility]) Acetaminophen 325 MG / Hydrocodone Bitartrate 5 MG Ora l Tablet 06/13/2020 12:00:00 AM EST eCW1 ([facility]) Acetaminophen 325 MG / Hydrocodone Bitartrate 5 MG Ora l Tablet 06/13/2020 12:00:00 AM EST eCW1 ([facility]) Acetaminophen 325 MG / Hydrocodone Bitartrate 5 MG Ora l Tablet 06/13/2020 12:00:00 AM EST eCW1 ([facility]) Acetaminophen 325 MG / Hydrocodone Bitartrate 5 MG Ora l Tablet 05/06/2020 12:00:00 AM EST eCW1 ([facility]) Acetaminophen 325 MG / Hydrocodone Bitartrate 5 MG Ora l Tablet 05/06/2020 12:00:00 AM EST eCW1 ([facility]) Levothyroxine Sodium 0.125 MG Oral Tablet 04/09/2020 12:00:00 AM ED T eCW1 ([facility]) Levothyroxine Sodium 0.125 MG Oral Tablet 04/09/2020 12:00:00 AM ED T eCW1 ([facility]) Levothyroxine Sodium 0.125 MG Oral Tablet 04/09/2020 12:00:00 AM ED T eCW1 ([facility]) Levothyroxine Sodium 0.125 MG Oral Tablet 04/09/2020 12:00:00 AM ED T eCW1 ([facility]) Levothyroxine Sodium 0.125 MG Oral Tablet 04/09/2020 12:00:00 AM ED T eCW1 ([facility]) Levothyroxine Sodium 0.125 MG Oral Tablet 04/09/2020 12:00:00 AM ED T eCW1 ([facility]) Levothyroxine Sodium 0.125 MG Oral Tablet 04/09/2020 12:00:00 AM ED T eCW1 ([facility]) Levothyroxine Sodium 0.125 MG Oral Tablet 04/09/2020 12:00:00 AM ED T eCW1 ([facility]) Levothyroxine Sodium 0.125 MG Oral Tablet 04/09/2020 12:00:00 AM ED T eCW1 ([facility]) Levothyroxine Sodium 0.125 MG Oral Tablet 04/09/2020 12:00:00 AM ED T eCW1 ([facility]) Levothyroxine Sodium 0.125 MG Oral Tablet 04/09/2020 12:00:00 AM ED T eCW1 ([facility])
[2021-04-17] MEDS ORDERED: LEVO100T5 (12:01)
[2021-04-17] MEDS ORDERED: SOD1.479 (12:01)
[2021-04-17] MEDS ORDERED: VALS1TAB67 (12:01)
[2021-04-17] MEDS ORDERED: OMEP-218 (12:01)
--- NOTE | 2021-04-17 12:40 | REP ---
INDICATION: FALL/DEFORMITY COMPARISON: None. TECHNIQUE: AP, lateral, bilateral oblique views. FINDINGS: Evidence for old healed injuries. Lateral soft tissue swelling. No acute fracture or dislocation identified. IMPRESSION: Lateral swelling without acute fracture or dislocation. <Electronically signed by Miko Ma > 04/17/21 [id number]
--- NOTE | 2021-04-17 12:41 | REP ---
INDICATION: FALL/DEFORMITY COMPARISON: None. TECHNIQUE: AP, lateral, bilateral oblique views left foot. FINDINGS: The osseous structures and joint spaces are intact and age-appropriate. There is no evidence for acute fracture or dislocation. Surrounding soft tissues are unremarkable. No subcutaneous emphysema or radiodense foreign body. IMPRESSION: No acute fracture or dislocation. <Electronically signed by Miko Ma > 04/17/21 [id number]
--- NOTE | 2021-04-17 12:52 | REP ---
INDICATION: FALL/DEFORMITY COMPARISON: None TECHNIQUE: Five views each knee FINDINGS: Right knee: The compartments are symmetric and well maintained. There is no acute fracture, dislocation, or subluxation. Left knee: Compartments are symmetric and well maintained. There is no acute fracture, dislocation, or subluxation. IMPRESSION: Within normal limits bilateral <Electronically signed by Eduin Chow > 04/17/21 [id number]
--- OUTSIDE RECORDS SUMMARY | 2021-04-17 15:39 | CCD ---
Author Author [facility] Organization [facility] Address Unknown Phone Unavailable Care Team Providers Care Mortgage Collector Name Role Phone Dong Hager MD Unavailable Unavailable Dong Hager MD Unavailable Unavailable Dong Hager MD Unavailable Unavailable Dong Hager MD Unavailable Unavailable Dong Hager MD Unavailable Unavailable Dong Hager MD Unavailable Unavailable Dong Hager MD Unavailable Unavailable Dombek-Dong Archuleta MD Unavailable [...] MD Unavailable Unavailable Dombek-LangDong MD Unavailable Unavailable Danobek-LangDong MD Unavailable Unavailable Danobek-Dong Archuleta MD Unavailable Unavailable Danobek-LangDong MD Unavailable Unavailable Danobek-Dong Archuleta MD Unavailable Unavailable Dombek-Dong Archuleta MD Unavailable Unavailable Danobek-Dong Archuleta MD Unavailable Unavailable DanobeDong Thapa MD Unavailable Unavailable Danobek-Dong Archuleta MD Unavailable Unavailable Danobek-Dong Archuleta MD Unavailable Unavailable Danobek-Dong Archuleta MD Unavailable Unavailable DanobekDong Blount MD Unavailable Unavailable DanobeDong Thapa MD Unavailable Unavailable Danobek-Dong Archuleta MD Unavailable Unavailable Danobek-Dong Archuleta MD Unavailable Unavailable Danobek-Dong Archuleta MD Unavailable Unavailable Danobek-Dong Archuleta MD Unavailable Unavailable DanobekDong Blount MD Unavailable Unavailable Elle Torres MD Unavailable Unavailable Elle Torres MD Unavailable Unavailable Elle Torres MD Unavailable Unavailable Elle Torres MD Unavailable Unavailable Elle Torres MD Unavailable Unavailable Elle Torres MD Unavailable Unavailable Elle Torres MD Unavailable Unavailable Elle Torres MD Unavailable Unavailable Elle Torers MD Unavailable Unavailable Elle Torres MD Unavailable [...] Torres MD Unavailable Unavailable Trevin HIGUERA Unavailable [phone] Trevin HIGUERA Unavailable [phone] Trevin HIGUERA Unavailable [phone] Trevin HIGUERA Unavailable [phone] Trevin HIGUERA Unavailable [phone] Schoeneman, Pelham DO Unavailable Unavailable Schoeneman, Pelham DO Unavailable Unavailable Schoeneman, Pelham DO Unavailable Unavailable Schoeneman, Pelham DO Unavailable Unavailable Schoeneman, Pelham DO Unavailable Unavailable Schoeneman, Pelham DO Unavailable Unavailable Schoeneman, Pelham DO Unavailable Unavailable Schoeneman, Pelham DO Unavailable Unavailable Schoeneman, Pelham DO Unavailable Unavailable Schoeneman, Pelham DO Unavailable Unavailable Schoeneman, Radha DO Unavailable Unavailable Schoeneman, Pelham DO Unavailable Unavailable Schoeneman, Pelham DO Unavailable Unavailable Schoeneman, Radha DO Unavailable Unavailable Schoeneman, Pelham DO Unavailable Unavailable Schoeneman, Pelham DO Unavailable Unavailable Schoeneman, Radha DO Unavailable Unavailable Schoeneman, Radha DO Unavailable Unavailable Schoeneman, Radha DO Unavailable Unavailable Schoeneman, Pelham DO Unavailable Unavailable Schoeneman, Pelham DO Unavailable Unavailable Schoeneman, Radha DO Unavailable Unavailable Schoeneman, Pelham DO Unavailable Unavailable Schoeneman, Radha DO Unavailable Unavailable Schoeneman, Radha DO Unavailable Unavailable Schoeneman, Pelham DO Unavailable Unavailable Schoeneman, Radha DO Unavailable Unavailable Schoeneman, Pelham DO Unavailable Unavailable Schoeneman, Pelham DO Unavailable Unavailable Schoeneman, Radha DO Unavailable Unavailable Schoeneman, Pelham DO Unavailable Unavailable Schoeneman, Pelham DO Unavailable Unavailable Schoeneman, Pelham DO Unavailable Unavailable Schoeneman, Rdaha DO Unavailable Unavailable Schoeneman, Pelham DO Unavailable Unavailable Schoeneman, Radha DO Unavailable Unavailable Schoeneman, Radha DO Unavailable Unavailable Schoeneman, Radha DO Unavailable Unavailable Schoeneman, Pelham DO Unavailable Unavailable Schoeneman, Pelham DO Unavailable Unavailable Schoeneman, Radha DO Unavailable Unavailable BUNKER, R PORSHA PA [...] R PORSHA PA Unavailable Unavailable BUNKER, R PORSAH PA Unavailable Unavailable BUNKER, R PORSHA PA [...] is protected by Article 27-F of the [facility] Public Health law. If you continue you may have access to information: Regarding HIV / AIDS; Provided by facilities licensed or operated by the [facility] Office of Mental Health; or Provided by the [facility] Office for People With Developmental Disabilities. If such information is present, then the following [facility] mandated warning applies: This information has been [...] law may result in a fine or custodial sentence or both. A general authorization for the release of medical or other information is NOT sufficient authorization for further disc losure. Family History Family Member Name Family Member Gender Family Member Status Date o f Status Description Data Source(s) Unknown Male Problem MEDENT ([facility]) Unknown Male Problem [facility] Encounters Encounter Providers Location Date Indications Data Source(s ) Outpatient Attender: Srinivasa Torres MD Main Office 04/08/2021 09:45:00 AM EDT [facility] ([facility]) [place] [address] [facility] [address] 04/02/2021 12:00:00 AM EDT eCW1 ([facility]) [place] [address] [facility] [address] 03/18/2021 12:00:00 AM EDT eCW1 ([facility]) [place] [address] [facility] [address] 03/14/2021 12:00:00 AM EDT eCW1 ([facility]) [place] [address] [facility] [address] 03/11/2021 12:00:00 AM EDT eCW1 ([facility]) [place] [address] [facility] [address] 02/18/2021 12:00:00 AM EDT eCW1 ([facility]) [place] [address] [facility] [address] 02/10/2021 12:00:00 AM EDT eCW1 ([facility]) [place] [address] [facility] [address] 02/07/2021 12:00:00 AM EDT eCW1 ([facility]) [place] [address] [facility] [address] 02/07/2021 12:00:00 AM EDT eCW1 ([facility]) [place] [address] [facility] [address] 01/23/2021 12:00:00 AM EDT eCW1 ([facility]) [place] [address] [facility] [address] 01/16/2021 12:00:00 AM EDT eCW1 ([facility]) [place] [address] [facility] [address] 01/15/2021 12:00:00 AM EDT eCW1 ([facility]) [place] [address] [facility] [address] 01/07/2021 12:00:00 AM EDT eCW1 ([facility]) [place] [address] [facility] [address] 12/18/2020 12:00:00 AM EDT eCW1 ([facility]) [place] [address] [facility] [address] 12/05/2020 12:00:00 AM EDT eCW1 ([facility]) [place] [address] [facility] [address] 11/28/2020 12:00:00 AM EDT eCW1 ([facility]) [place] [address] [facility] [address] 11/04/2020 12:00:00 AM EDT eCW1 ([facility]) [place] [address] [facility] [address] 10/29/2020 12:00:00 AM EDT eCW1 ([facility]) [place] [address] [facility] [address] 10/18/2020 12:00:00 AM EDT eCW1 ([facility]) [place] [address] [facility] [address] 10/03/2020 12:00:00 AM EDT eCW1 ([facility]) [place] [address] [facility] [address] 09/27/2020 12:00:00 AM EDT eCW1 ([facility]) [place] [address] [facility] [address] 09/02/2020 12:00:00 AM EST eCW1 ([facility]) [place] [address] [facility] [address] 08/13/2020 12:00:00 AM EST eCW1 ([facility]) [place] [address] [facility] [address] 08/08/2020 12:00:00 AM EST eCW1 ([facility]) [place] [address] [facility] [address] 08/02/2020 12:00:00 AM EST eCW1 ([facility]) [place] [address] [facility] [address] 07/29/2020 12:00:00 AM EST eCW1 ([facility]) [place] [address] [facility] [address] 07/29/2020 12:00:00 AM EST eCW1 ([facility]) [place] [address] [facility] [address] 07/22/2020 12:00:00 AM EST eCW1 ([facility]) [place] [address] [facility] [address] 07/16/2020 12:00:00 AM EST eCW1 [facility] [place] [address] [facility] [address] 07/12/2020 12:00:00 AM EST [facility]) [place] [address] [facility] [address] 07/12/2020 12:00:00 AM EST [facility]CW1 ([facility]) [place] [address] [facility] [address] 07/09/2020 12:00:00 AM EST eCW1 ([facility]) Emergency Attender: Brandee Hager MDAttender: GAVIN JOHNSON PAReferrer: Radha Horton DO 07/03/2020 05:42:00 PM EST - 07/03/2020 06:10:00 PM [facility] Patient discharged. [place] [address] [facility] [address] 07/01/2020 12:00:00 AM EST eCW1 ([facility]) Outpatient Attender: Srinivasa Torres MD Main Office 06/18/2020 01:15:00 PM EST [facility] ([facility]) [place] [address] [facility] [address] 06/13/2020 12:00:00 AM EST [facility] [place] [address] [facility] [address] 06/10/2020 12:00:00 AM EST eCW1 ([facility]) [place] [address] [facility] [address] 05/27/2020 12:00:00 AM EST eCW1 ([facility]) [place] [address] [facility] [address] 05/16/2020 12:00:00 AM EST eCW1 ([facility]) [place] [address] [facility] [address] 05/09/2020 12:00:00 AM EST eCW1 ([facility]) [place] [address] [facility] [address] 05/06/2020 12:00:00 AM EST eCW1 ([facility]) [place] [address] [facility] [address] 05/06/2020 12:00:00 AM EST eCW1 ([facility]) [place] [address] [facility] [address] 04/26/2020 12:00:00 AM EDT eCW1 ([facility]) [place] [address] [facility] [address] 04/22/2020 12:00:00 AM EDT eCW1 ([facility]) [place] [address] [facility] [address] 04/17/2020 12:00:00 AM EDT eCW1 ([facility]) [place] [address] [facility] [address] 04/10/2020 12:00:00 AM EDT eCW1 ([facility]) [place] [address] [facility] [address] 04/09/2020 12:00:00 AM EDT eCW1 ([facility]) Emergency Attender: GISELA HIGUERAReferrer: PORSHA Jones 01/24/2018 09:10:00 AM EDT - 01/24/2018 11:08:00 AM EDT [facility] Immunizations Vaccine Date Status Description Data Source(s) COVID-19 VACCINE Tg 11/07/2020 12:00:00 AM EDT completed [facility] Vaccine Series Complete: YESThis Data wa s Submitted to [facility] Via [employer]. Medications Medication Brand Name Start Date Product Form Dose Route Admi nistrative Instructions Pharmacy Instructions Status Indications Reaction Description Data Source(s) Sutab Sutab 04/08/2021 12:00:00 AM EDT active MEDENT ([facility]) Acetaminophen 325 MG / Hydrocodone Bitartrate [...] 1.0 {tablet_as_needed} active HYDROcodone-Acetaminophen 5-325 MG eCW1 ([facility]) Lidocaine Hydrochloride 0.05 MG/MG Transdermal Patch [ Lidoderm] Lidoderm 5 % Lidoderm 5 % 03/18/2021 12:00:00 AM EDT active Lidoderm 5 % eCW1 ([facility]) tramadol hydrochloride 50 MG Oral Tablet traMADol HCl 50 MG traMADol HCl 50 MG 03/18/2021 12:00:00 AM EDT 1.0 {tablet_as_needed} active traMADol HCl 50 MG eCW1 ([facility]) Lidocaine Hydrochloride 0.05 MG/MG Transdermal Patch [ Lidoderm] Lidoderm 5 % Lidoderm 5 % 03/18/2021 12:00:00 AM EDT active Lidoderm 5 % eCW1 ([facility]) 5 mg 03/18/2021 12:00:00 AM EDT tablet [...] {tablet_as_needed} active traMADol HCl 50 MG eCW1 ([facility]) 20 mg 03/18/2021 12:00:00 AM EDT capsule,delayed [...] propionate 0.05 MG/ACTUAT Metered Dose [place]ing[place] al Trimble 50 mcg/actuation FLUTICASONE PROPIONATE 03/11/2021 12:00:00 AM EDT spray,suspension 16 2 SPRAYS EACH NOSTRIL ONCE DAILY 2 SPRAYS EACH NOSTRIL ONCE DAILY SOLD: 03/12/2021 [facility] Acetaminophen 325 MG / Hydrocodone Adam trate 5 MG Oral Tablet HYDROcodone- Acetaminophen 5-325 MG HYDROcodone-Acetaminophen 5-325 MG 02/18/2021 12:00:00 AM EDT 1.0 {tablet_as_needed} active HYDROcodone-Acetaminophen 5-325 MG eCW1 ([facility]) Acetaminophen 325 MG / Hydrocodone Bitartrate 5 MG Ora l Tablet 5-325 mg HYDROCODONE/ACETAMINOPHEN 02/18/2021 12:00:00 AM EDT tablet 60 TAKE ONE TABLET BY MOUTH TWICE A DAY NEEDED MAXIMUM DAILY DOSE = 2 TAKE ONE TABLET BY MOUTH TWICE A DAY NEEDED MAXIMUM DAILY DOSE = 2 SOLD: 02/20/2021 [facility] Acetaminophen 325 MG / Hydrocodone Adam trate 5 MG Oral Tablet HYDROcodone- Acetaminophen 5-325 MG HYDROcodone-Acetaminophen 5-325 MG 02/18/2021 12:00:00 AM EDT 1.0 {tablet_as_needed} active HYDROcodone-Acetaminophen 5-325 MG eCW1 ([facility]) 160 mg 02/18/2021 12:00:00 AM EDT tablet 90 TAKE ONE TABLET BY MOUTH EVERY DAY TAKE ONE TABLET BY MOUTH EVERY DAY SOLD: 02/20/2021 [facility] Acetaminophen 325 MG / Hydrocodone Adam trate 5 MG Oral Tablet HYDROcodone- Acetaminophen 5-325 MG HYDROcodone-Acetaminophen 5-325 MG 02/18/2021 12:00:00 AM EDT 1.0 {tablet_as_needed} active HYDROcodone-Acetaminophen 5-325 MG eCW1 ([facility]) Acetaminophen 325 MG / Hydrocodone Adam trate 5 MG Oral Tablet HYDROcodone- Acetaminophen 5-325 MG HYDROcodone-Acetaminophen 5-325 MG 02/18/2021 12:00:00 AM EDT 1.0 {tablet_as_needed} active HYDROcodone-Acetaminophen 5-325 MG eCW1 ([facility]) tramadol hydrochloride 50 MG Oral Tablet traMADol HCl 50 MG traMADol HCl 50 MG 02/10/2021 12:00:00 AM EDT 1.0 {tablet_as_needed} active traMADol HCl 50 MG eCW1 ([facility]) tramadol hydrochloride 50 MG Oral Tablet traMADol HCl 50 MG traMADol HCl 50 MG 02/10/2021 12:00:00 AM EDT 1.0 {tablet_as_needed} active traMADol HCl 50 MG eCW1 ([facility]) tramadol hydrochloride 50 MG Oral Tablet traMADol HCl 50 MG traMADol HCl 50 MG 02/10/2021 12:00:00 AM EDT 1.0 {tablet_as_needed} active traMADol HCl 50 MG eCW1 ([facility]) 50 mg 02/10/2021 12:00:00 AM EDT tablet [...] {tablet_as_needed} active traMADol HCl 50 MG eCW1 ([facility]) tramadol hydrochloride 50 MG Oral Tablet traMADol HCl 50 MG traMADol HCl 50 MG 02/10/2021 12:00:00 AM EDT 1.0 {tablet_as_needed} active traMADol HCl 50 MG eCW1 ([facility]) 17 gram 02/08/2021 12:00:00 AM EDT powder [...] EDT active Omeprazo le 20 MG eCW1 ([facility]) POLYETHYLENE GLYCOL 3350 142 MG/ML Oral Solution [Delphine lax] MiraLax 17 GM MiraLax 17 GM 02/07/2021 12:00:00 AM EDT 1.0 {packet_mixed_with_8_ou nces_of_fluid} active MiraLax 17 GM eCW1 ([facility]) POLYETHYLENE GLYCOL 3350 142 MG/ML Oral Solution [Delphine lax] MiraLax 17 GM MiraLax 17 GM 02/07/2021 12:00:00 AM EDT 1.0 {packet_mixed_with_8_ou nces_of_fluid} active MiraLax 17 GM eCW1 ([facility]) POLYETHYLENE GLYCOL 3350 142 MG/ML Oral Solution [Delphine lax] MiraLax 17 GM MiraLax 17 GM 02/07/2021 12:00:00 AM EDT 1.0 {packet_mixed_with_8_ou nces_of_fluid} active MiraLax 17 GM eCW1 ([facility]) Omeprazole 20 MG Delayed Release Oral Capsule Omeprazole 20 MG 02/07/2021 12:00:00 AM EDT active Omeprazo le 20 MG eCW1 ([facility]) Omeprazole 20 MG Delayed Release Oral Capsule Omeprazole 20 MG 02/07/2021 12:00:00 AM EDT active Omeprazo le 20 MG eCW1 ([facility]) POLYETHYLENE GLYCOL 3350 142 MG/ML Oral Solution [Delphine lax] MiraLax 17 GM MiraLax 17 GM 02/07/2021 12:00:00 AM EDT 1.0 {packet_mixed_with_8_ou nces_of_fluid} active MiraLax 17 GM eCW1 ([facility]) Omeprazole 20 MG Delayed Release Oral Capsule Omeprazole 20 MG 02/07/2021 12:00:00 AM EDT active Omeprazo le 20 MG eCW1 ([facility]) Omeprazole 20 MG Delayed Release Oral Capsule Omeprazole 20 MG 02/07/2021 12:00:00 AM EDT active Omeprazo le 20 MG eCW1 ([facility]) Omeprazole 20 MG Delayed Release Oral Capsule Omeprazole 20 MG 02/07/2021 12:00:00 AM EDT active Omeprazo le 20 MG eCW1 ([facility]) POLYETHYLENE GLYCOL 3350 142 MG/ML Oral Solution [Delphine lax] MiraLax 17 GM MiraLax 17 GM 02/07/2021 12:00:00 AM EDT 1.0 {packet_mixed_with_8_ou nces_of_fluid} active MiraLax 17 GM eCW1 ([facility]) POLYETHYLENE GLYCOL 3350 142 MG/ML Oral Solution [Delphine lax] MiraLax 17 GM MiraLax 17 GM 02/07/2021 12:00:00 AM EDT 1.0 {packet_mixed_with_8_ou nces_of_fluid} active MiraLax 17 GM eCW1 ([facility]) POLYETHYLENE GLYCOL 3350 142 MG/ML Oral Solution [Delphine lax] MiraLax 17 GM MiraLax 17 GM 02/07/2021 12:00:00 AM EDT 1.0 {packet_mixed_with_8_ou nces_of_fluid} active MiraLax 17 GM eCW1 ([facility]) POLYETHYLENE GLYCOL 3350 142 MG/ML Oral Solution [Delphine lax] MiraLax 17 GM MiraLax 17 GM 02/07/2021 12:00:00 AM EDT 1.0 {packet_mixed_with_8_ou nces_of_fluid} active MiraLax 17 GM eCW1 ([facility]) Omeprazole 20 MG Delayed Release Oral Capsule Omeprazole 20 MG 02/07/2021 12:00:00 AM EDT active Omeprazo le 20 MG eCW1 ([facility]) Omeprazole 20 MG Delayed Release Oral Capsule Omeprazole 20 MG 02/07/2021 12:00:00 AM EDT active Omeprazo le 20 MG eCW1 ([facility]) Rosuvastatin calcium 10 MG Oral Tablet ROSUVASTATIN [...] 1.0 {tablet_as_needed} active HYDROcodone-Acetaminophen 5-325 MG eCW1 ([facility]) Acetaminophen 325 MG / Hydrocodone Adam trate 5 MG Oral Tablet HYDROcodone- Acetaminophen 5-325 MG HYDROcodone-Acetaminophen 5-325 MG 01/16/2021 12:00:00 AM EDT 1.0 {tablet_as_needed} active HYDROcodone-Acetaminophen 5-325 MG eCW1 ([facility]) Acetaminophen 325 MG / Hydrocodone Adam trate 5 MG Oral Tablet HYDROcodone- Acetaminophen 5-325 MG HYDROcodone-Acetaminophen 5-325 MG 01/16/2021 12:00:00 AM EDT 1.0 {tablet_as_needed} active HYDROcodone-Acetaminophen 5-325 MG eCW1 ([facility]) Acetaminophen 325 MG / Hydrocodone Adam trate 5 MG Oral Tablet HYDROcodone- Acetaminophen 5-325 MG HYDROcodone-Acetaminophen 5-325 MG 01/16/2021 12:00:00 AM EDT 1.0 {tablet_as_needed} active HYDROcodone-Acetaminophen 5-325 MG eCW1 ([facility]) Acetaminophen 325 MG / Hydrocodone Adam trate 5 MG Oral Tablet HYDROcodone- Acetaminophen 5-325 MG HYDROcodone-Acetaminophen 5-325 MG 01/16/2021 12:00:00 AM EDT 1.0 {tablet_as_needed} active HYDROcodone-Acetaminophen 5-325 MG eCW1 ([facility]) Acetaminophen 325 MG / Hydrocodone Adam trate 5 MG Oral Tablet HYDROcodone- Acetaminophen 5-325 MG HYDROcodone-Acetaminophen 5-325 MG 01/16/2021 12:00:00 AM EDT 1.0 {tablet_as_needed} active HYDROcodone-Acetaminophen 5-325 MG eCW1 ([facility]) 50 mg 01/07/2021 12:00:00 AM EDT tablet 120 TAKE ONE TABLET BY MOUTH EVERY 6 HOURS NEEDED MAXIMUM DAILY DOSE = 4 TABLETS TAKE ONE TABLET BY MOUTH EVERY 6 HOURS NEEDED MAXIMUM DAILY DOSE = 4 TABLETS SOLD: 01/09/2021 [facility] Ondansetron 4 MG Disintegrating Oral Tablet ONDANSETRON [...] 1.0 {tablet_as_needed} active HYDROcodone-Acetaminophen 5-325 MG eCW1 ([facility]) Acetaminophen 325 MG / Hydrocodone Adam trate 5 MG Oral Tablet Hydrocodone- Acetaminophen 5-325 MG Hydrocodone-Acetaminophen 5-325 MG 12/05/2020 12:00:00 AM EDT 1.0 {tablet_as_needed} active Hydrocodone-Acetaminophen 5-325 MG eCW1 ([facility]) Acetaminophen 325 MG / Hydrocodone Adam trate 5 MG Oral Tablet HYDROcodone- Acetaminophen 5-325 MG HYDROcodone-Acetaminophen 5-325 MG 12/05/2020 12:00:00 AM EDT 1.0 {tablet_as_needed} active HYDROcodone-Acetaminophen 5-325 MG eCW1 ([facility]) 5 mg 11/28/2020 12:00:00 AM EDT tablet [...] 1.0 {tablet_as_needed} active Hydrocodone-Acetaminophen 5-325 MG eCW1 ([facility]) Acetaminophen 325 MG / Hydrocodone Adam trate 5 MG Oral Tablet Hydrocodone- Acetaminophen 5-325 MG Hydrocodone-Acetaminophen 5-325 MG 10/29/2020 12:00:00 AM EDT 1.0 {tablet_as_needed} active Hydrocodone-Acetaminophen 5-325 MG eCW1 ([facility]) Acetaminophen 325 MG / Hydrocodone Adam trate 5 MG Oral Tablet Hydrocodone- Acetaminophen 5-325 MG Hydrocodone-Acetaminophen 5-325 MG 10/29/2020 12:00:00 AM EDT 1.0 {tablet_as_needed} active Hydrocodone-Acetaminophen 5-325 MG eCW1 ([facility]) Rosuvastatin calcium 10 MG Oral Tablet ROSUVASTATIN [...] 1.0 {tablet_as_needed} active Hydrocodone-Acetaminophen 5-325 MG eCW1 ([facility]) Acetaminophen 325 MG / Hydrocodone Adam trate 5 MG Oral Tablet Hydrocodone- Acetaminophen 5-325 MG Hydrocodone-Acetaminophen 5-325 MG 09/27/2020 12:00:00 AM EDT 1.0 {tablet_as_needed} active Hydrocodone-Acetaminophen 5-325 MG eCW1 ([facility]) 5-325 mg 09/27/2020 12:00:00 AM EDT tablet [...] 1.0 {tablet_as_needed} active Hydrocodone-Acetaminophen 5-325 MG eCW1 ([facility]) 50 mg 09/03/2020 12:00:00 AM EST tablet [...] 1.0 {tablet_as_needed} active Hydrocodone-Acetaminophen 5-325 MG eCW1 ([facility]) 100 mcg 08/14/2020 12:00:00 AM EST tablet [...] EST active Levothyroxine Sodium 100 MCG eCW1 ([facility]) Levothyroxine Sodium 0.1 MG Oral Tablet Levothyroxine Sodium 100 MCG Levothyroxine Sodium 100 MCG 08/13/2020 12:00:00 AM EST active Levothyroxine Sodium 100 MCG eCW1 ([facility]) Levothyroxine Sodium 0.1 MG Oral Tablet Levothyroxine Sodium 100 MCG Levothyroxine Sodium 100 MCG 08/13/2020 12:00:00 AM EST active Levothyroxine Sodium 100 MCG eCW1 ([facility]) Levothyroxine Sodium 0.1 MG Oral Tablet Levothyroxine Sodium 100 MCG Levothyroxine Sodium 100 MCG 08/13/2020 12:00:00 AM EST active Levothyroxine Sodium 100 MCG eCW1 ([facility]) Levothyroxine Sodium 0.1 MG Oral Tablet Levothyroxine Sodium 100 MCG Levothyroxine Sodium 100 MCG 08/13/2020 12:00:00 AM EST active Levothyroxine Sodium 100 MCG eCW1 ([facility]) Levothyroxine Sodium 0.1 MG Oral Tablet Levothyroxine Sodium 100 MCG Levothyroxine Sodium 100 MCG 08/13/2020 12:00:00 AM EST active Levothyroxine Sodium 100 MCG eCW1 ([facility]) Levothyroxine Sodium 0.1 MG Oral Tablet Levothyroxine Sodium 100 MCG Levothyroxine Sodium 100 MCG 08/13/2020 12:00:00 AM EST active Levothyroxine Sodium 100 MCG eCW1 ([facility]) Levothyroxine Sodium 0.1 MG Oral Tablet Levothyroxine Sodium 100 MCG Levothyroxine Sodium 100 MCG 08/13/2020 12:00:00 AM EST active Levothyroxine Sodium 100 MCG eCW1 ([facility]) Levothyroxine Sodium 0.1 MG Oral Tablet Levothyroxine Sodium 100 MCG Levothyroxine Sodium 100 MCG 08/13/2020 12:00:00 AM EST active Levothyroxine Sodium 100 MCG eCW1 ([facility]) Levothyroxine Sodium 0.1 MG Oral Tablet Levothyroxine Sodium 100 MCG Levothyroxine Sodium 100 MCG 08/13/2020 12:00:00 AM EST active Levothyroxine Sodium 100 MCG eCW1 ([facility]) Levothyroxine Sodium 0.1 MG Oral Tablet Levothyroxine Sodium 100 MCG Levothyroxine Sodium 100 MCG 08/13/2020 12:00:00 AM EST active Levothyroxine Sodium 100 MCG eCW1 ([facility]) Levothyroxine Sodium 0.1 MG Oral Tablet Levothyroxine Sodium 100 MCG Levothyroxine Sodium 100 MCG 08/13/2020 12:00:00 AM EST active Levothyroxine Sodium 100 MCG eCW1 ([facility]) Levothyroxine Sodium 0.1 MG Oral Tablet Levothyroxine Sodium 100 MCG Levothyroxine Sodium 100 MCG 08/13/2020 12:00:00 AM EST active Levothyroxine Sodium 100 MCG eCW1 ([facility]) Levothyroxine Sodium 0.1 MG Oral Tablet Levothyroxine Sodium 100 MCG Levothyroxine Sodium 100 MCG 08/13/2020 12:00:00 AM EST active Levothyroxine Sodium 100 MCG eCW1 ([facility]) Levothyroxine Sodium 0.1 MG Oral Tablet Levothyroxine Sodium 100 MCG Levothyroxine Sodium 100 MCG 08/13/2020 12:00:00 AM EST active Levothyroxine Sodium 100 MCG eCW1 ([facility]) Levothyroxine Sodium 0.1 MG Oral Tablet Levothyroxine Sodium 100 MCG Levothyroxine Sodium 100 MCG 08/13/2020 12:00:00 AM EST active Levothyroxine Sodium 100 MCG eCW1 ([facility]) Levothyroxine Sodium 0.1 MG Oral Tablet Levothyroxine Sodium 100 MCG Levothyroxine Sodium 100 MCG 08/13/2020 12:00:00 AM EST active Levothyroxine Sodium 100 MCG eCW1 ([facility]) Levothyroxine Sodium 0.1 MG Oral Tablet Levothyroxine Sodium 100 MCG Levothyroxine Sodium 100 MCG 08/13/2020 12:00:00 AM EST active Levothyroxine Sodium 100 MCG eCW1 ([facility]) Levothyroxine Sodium 0.1 MG Oral Tablet Levothyroxine Sodium 100 MCG Levothyroxine Sodium 100 MCG 08/13/2020 12:00:00 AM EST active Levothyroxine Sodium 100 MCG eCW1 ([facility]) Levothyroxine Sodium 0.1 MG Oral Tablet Levothyroxine Sodium 100 MCG Levothyroxine Sodium 100 MCG 08/13/2020 12:00:00 AM EST active Levothyroxine Sodium 100 MCG eCW1 ([facility]) Levothyroxine Sodium 0.1 MG Oral Tablet Levothyroxine Sodium 100 MCG Levothyroxine Sodium 100 MCG 08/13/2020 12:00:00 AM EST active Levothyroxine Sodium 100 MCG eCW1 ([facility]) Levothyroxine Sodium 0.1 MG Oral Tablet Levothyroxine Sodium 100 MCG Levothyroxine Sodium 100 MCG 08/13/2020 12:00:00 AM EST active Levothyroxine Sodium 100 MCG eCW1 ([facility]) Levothyroxine Sodium 0.1 MG Oral Tablet Levothyroxine Sodium 100 MCG Levothyroxine Sodium 100 MCG 08/13/2020 12:00:00 AM EST active Levothyroxine Sodium 100 MCG eCW1 ([facility]) 50 mg 08/02/2020 12:00:00 AM EST tablet [...] EST suspended Macrobid 100 MG eCW1 ( [facility]) NITROFURANTOIN, MACROCRYSTALS 25 MG / Ni trofurantoin, Monohydrate 75 MG Oral Capsule [Macrobid] Macrobid 100 MG Macrobid 100 MG 07/29/2020 12:00:00 AM EST suspended Macrobid 100 MG eCW1 ( [facility]) NITROFURANTOIN, MACROCRYSTALS 25 MG / Ni trofurantoin, Monohydrate 75 MG Oral Capsule [Macrobid] Macrobid 100 MG Macrobid 100 MG 07/29/2020 12:00:00 AM EST suspended Macrobid 100 MG eCW1 ( [facility]) NITROFURANTOIN, MACROCRYSTALS 25 MG / Ni trofurantoin, Monohydrate 75 MG Oral Capsule [Macrobid] Macrobid 100 MG Macrobid 100 MG 07/29/2020 12:00:00 AM EST suspended Macrobid 100 MG eCW1 ( [facility]) NITROFURANTOIN, MACROCRYSTALS 25 MG / Ni trofurantoin, Monohydrate 75 MG Oral Capsule [Macrobid] Macrobid 100 MG Macrobid 100 MG 07/29/2020 12:00:00 AM EST suspended Macrobid 100 MG eCW1 ( [facility]) NITROFURANTOIN, MACROCRYSTALS 25 MG / Ni trofurantoin, Monohydrate 75 MG Oral Capsule [Macrobid] Macrobid 100 MG Macrobid 100 MG 07/29/2020 12:00:00 AM EST suspended Macrobid 100 MG eCW1 ( [facility]) NITROFURANTOIN, MACROCRYSTALS 25 MG / Ni trofurantoin, Monohydrate 75 MG Oral Capsule [Macrobid] Macrobid 100 MG Macrobid 100 MG 07/29/2020 12:00:00 AM EST suspended Macrobid 100 MG eCW1 ( [facility]) NITROFURANTOIN, MACROCRYSTALS 25 MG / Ni trofurantoin, Monohydrate 75 MG Oral Capsule [Macrobid] Macrobid 100 MG Macrobid 100 MG 07/29/2020 12:00:00 AM EST suspended Macrobid 100 MG eCW1 ( [facility]) NITROFURANTOIN, MACROCRYSTALS 25 MG / Ni trofurantoin, Monohydrate 75 MG Oral Capsule [Macrobid] Macrobid 100 MG Macrobid 100 MG 07/29/2020 12:00:00 AM EST suspended Macrobid 100 MG eCW1 ( [facility]) NITROFURANTOIN, MACROCRYSTALS 25 MG / Ni trofurantoin, Monohydrate 75 MG Oral Capsule [Macrobid] Macrobid 100 MG Macrobid 100 MG 07/29/2020 12:00:00 AM EST active Macrobid 100 MG eCW1 ([facility]) NITROFURANTOIN, MACROCRYSTALS 25 MG / Ni trofurantoin, Monohydrate 75 MG Oral Capsule [Macrobid] Macrobid 100 MG Macrobid 100 MG 07/29/2020 12:00:00 AM EST suspended Macrobid 100 MG eCW1 ( [facility]) NITROFURANTOIN, MACROCRYSTALS 25 MG / Ni trofurantoin, Monohydrate 75 MG Oral Capsule [Macrobid] Macrobid 100 MG Macrobid 100 MG 07/29/2020 12:00:00 AM EST suspended Macrobid 100 MG eCW1 ( [facility]) NITROFURANTOIN, MACROCRYSTALS 25 MG / Ni trofurantoin, Monohydrate 75 MG Oral Capsule [Macrobid] Macrobid 100 MG Macrobid 100 MG 07/29/2020 12:00:00 AM EST suspended Macrobid 100 MG eCW1 ( [facility]) NITROFURANTOIN, MACROCRYSTALS 25 MG / Ni trofurantoin, Monohydrate 75 MG Oral Capsule [Macrobid] Macrobid 100 MG Macrobid 100 MG 07/29/2020 12:00:00 AM EST suspended Macrobid 100 MG eCW1 ( [facility]) NITROFURANTOIN, MACROCRYSTALS 25 MG / Ni trofurantoin, Monohydrate 75 MG Oral Capsule [Macrobid] Macrobid 100 MG Macrobid 100 MG 07/29/2020 12:00:00 AM EST suspended Macrobid 100 MG eCW1 ( [facility]) NITROFURANTOIN, MACROCRYSTALS 25 MG / Ni trofurantoin, Monohydrate 75 MG Oral Capsule [Macrobid] Macrobid 100 MG Macrobid 100 MG 07/29/2020 12:00:00 AM EST active Macrobid 100 MG eCW1 ([facility]) NITROFURANTOIN, MACROCRYSTALS 25 MG / Ni trofurantoin, Monohydrate 75 MG Oral Capsule [Macrobid] Macrobid 100 MG Macrobid 100 MG 07/29/2020 12:00:00 AM EST suspended Macrobid 100 MG eCW1 ( [facility]) NITROFURANTOIN, MACROCRYSTALS 25 MG / Ni trofurantoin, Monohydrate 75 MG Oral Capsule [Macrobid] Macrobid 100 MG Macrobid 100 MG 07/29/2020 12:00:00 AM EST suspended Macrobid 100 MG eCW1 ( [facility]) NITROFURANTOIN, MACROCRYSTALS 25 MG / Ni trofurantoin, Monohydrate 75 MG Oral Capsule [Macrobid] Macrobid 100 MG Macrobid 100 MG 07/29/2020 12:00:00 AM EST active Macrobid 100 MG eCW1 ([facility]) NITROFURANTOIN, MACROCRYSTALS 25 MG / Ni trofurantoin, Monohydrate 75 MG Oral Capsule [Macrobid] Macrobid 100 MG Macrobid 100 MG 07/29/2020 12:00:00 AM EST suspended Macrobid 100 MG eCW1 ( [facility]) NITROFURANTOIN, MACROCRYSTALS 25 MG / Ni trofurantoin, Monohydrate 75 MG Oral Capsule [Macrobid] Macrobid 100 MG Macrobid 100 MG 07/29/2020 12:00:00 AM EST suspended Macrobid 100 MG eCW1 ( [facility]) NITROFURANTOIN, MACROCRYSTALS 25 MG / Ni trofurantoin, Monohydrate 75 MG Oral Capsule [Macrobid] Macrobid 100 MG Macrobid 100 MG 07/29/2020 12:00:00 AM EST suspended Macrobid 100 MG eCW1 ( [facility]) NITROFURANTOIN, MACROCRYSTALS 25 MG / Ni trofurantoin, Monohydrate 75 MG Oral Capsule [Macrobid] Macrobid 100 MG Macrobid 100 MG 07/29/2020 12:00:00 AM EST suspended Macrobid 100 MG eCW1 ( [facility]) NITROFURANTOIN, MACROCRYSTALS 25 MG / Ni trofurantoin, Monohydrate 75 MG Oral Capsule [Macrobid] Macrobid 100 MG Macrobid 100 MG 07/29/2020 12:00:00 AM EST suspended Macrobid 100 MG eCW1 ( [facility]) NITROFURANTOIN, MACROCRYSTALS 25 MG / Ni trofurantoin, Monohydrate 75 MG Oral Capsule [Macrobid] Macrobid 100 MG Macrobid 100 MG 07/29/2020 12:00:00 AM EST suspended Macrobid 100 MG eCW1 ( [facility]) NITROFURANTOIN, MACROCRYSTALS 25 MG / Ni trofurantoin, Monohydrate 75 MG Oral Capsule [Macrobid] Macrobid 100 MG Macrobid 100 MG 07/29/2020 12:00:00 AM EST suspended Macrobid 100 MG eCW1 ( [facility]) Acetaminophen 325 MG / Hydrocodone Adam trate 5 MG Oral Tablet Hydrocodone- Acetaminophen 5-325 MG Hydrocodone-Acetaminophen 5-325 MG 07/22/2020 12:00:00 AM EST 1.0 {tablet_as_needed} active Hydrocodone-Acetaminophen 5-325 MG eCW1 ([facility]) 5-325 mg 07/22/2020 12:00:00 AM EST tablet [...] 1.0 {tablet_as_needed} active Hydrocodone-Acetaminophen 5-325 MG eCW1 ([facility]) Acetaminophen 325 MG / Hydrocodone Adam trate 5 MG Oral Tablet Hydrocodone- Acetaminophen 5-325 MG Hydrocodone-Acetaminophen 5-325 MG 07/22/2020 12:00:00 AM EST 1.0 {tablet_as_needed} active Hydrocodone-Acetaminophen 5-325 MG eCW1 ([facility]) Acetaminophen 325 MG / Hydrocodone Adam trate 5 MG Oral Tablet Hydrocodone- Acetaminophen 5-325 MG Hydrocodone-Acetaminophen 5-325 MG 07/22/2020 12:00:00 AM EST 1.0 {tablet_as_needed} active Hydrocodone-Acetaminophen 5-325 MG eCW1 ([facility]) Acetaminophen 325 MG / Hydrocodone Adam trate 5 MG Oral Tablet Hydrocodone- Acetaminophen 5-325 MG Hydrocodone-Acetaminophen 5-325 MG 07/22/2020 12:00:00 AM EST 1.0 {tablet_as_needed} active Hydrocodone-Acetaminophen 5-325 MG eCW1 ([facility]) Acetaminophen 325 MG / Hydrocodone Adam trate 5 MG Oral Tablet Hydrocodone- Acetaminophen 5-325 MG Hydrocodone-Acetaminophen 5-325 MG 07/22/2020 12:00:00 AM EST 1.0 {tablet_as_needed} active Hydrocodone-Acetaminophen 5-325 MG eCW1 ([facility]) Augmentin 875-125 MG UNK 07/16/2020 12:00:00 AM EST 1.0 {tab let} suspended Augmentin 875-125 MG eCW1 ([facility]) Augmentin 875-125 MG UNK 07/16/2020 12:00:00 AM EST 1.0 {tab let} suspended Augmentin 875-125 MG eCW1 ([facility]) Augmentin 875-125 MG UNK 07/16/2020 12:00:00 AM EST 1.0 {tab let} suspended Augmentin 875-125 MG eCW1 ([facility]) Augmentin 875-125 MG UNK 07/16/2020 12:00:00 AM EST 1.0 {tab let} suspended Augmentin 875-125 MG eCW1 ([facility]) Augmentin 875-125 MG UNK 07/16/2020 12:00:00 AM EST 1.0 {tab let} suspended Augmentin 875-125 MG eCW1 ([facility]) Augmentin 875-125 MG UNK 07/16/2020 12:00:00 AM EST 1.0 {tab let} suspended Augmentin 875-125 MG eCW1 ([facility]) Augmentin 875-125 MG UNK 07/16/2020 12:00:00 AM EST 1.0 {tab let} suspended Augmentin 875-125 MG eCW1 ([facility]) 875-125 mg 07/16/2020 12:00:00 AM EST tablet 14 TAKE ONE TABLET BY MOUTH EVERY 12 HOURS FOR 7 DAYS TAKE ONE TABLET BY MOUTH EVERY 12 HOURS FOR 7 DAYS SOLD: 07/16/2020 [facility] Augmentin 875-125 MG UNK 07/16/2020 12:00:00 AM EST 1.0 {tab let} suspended Augmentin 875-125 MG eCW1 ([facility]) Augmentin 875-125 MG UNK 07/16/2020 12:00:00 AM EST 1.0 {tab let} suspended Augmentin 875-125 MG eCW1 ([facility]) Augmentin 875-125 MG UNK 07/16/2020 12:00:00 AM EST 1.0 {tab let} suspended Augmentin 875-125 MG eCW1 ([facility]) Augmentin 875-125 MG UNK 07/16/2020 12:00:00 AM EST 1.0 {tablet } active Augmentin 875-125 MG eCW1 ([facility]) Augmentin 875-125 MG UNK 07/16/2020 12:00:00 AM EST 1.0 {tab let} suspended Augmentin 875-125 MG eCW1 ([facility]) Augmentin 875-125 MG UNK 07/16/2020 12:00:00 AM EST 1.0 {tab let} suspended Augmentin 875-125 MG eCW1 ([facility]) Augmentin 875-125 MG UNK 07/16/2020 12:00:00 AM EST 1.0 {tab let} suspended Augmentin 875-125 MG eCW1 ([facility]) Augmentin 875-125 MG UNK 07/16/2020 12:00:00 AM EST 1.0 {tablet } active Augmentin 875-125 MG eCW1 ([facility]) Augmentin 875-125 MG UNK 07/16/2020 12:00:00 AM EST 1.0 {tab let} suspended Augmentin 875-125 MG eCW1 ([facility]) Augmentin 875-125 MG UNK 07/16/2020 12:00:00 AM EST 1.0 {tab let} suspended Augmentin 875-125 MG eCW1 ([facility]) Augmentin 875-125 MG UNK 07/16/2020 12:00:00 AM EST 1.0 {tab let} suspended Augmentin 875-125 MG eCW1 ([facility]) Augmentin 875-125 MG UNK 07/16/2020 12:00:00 AM EST 1.0 {tab let} suspended Augmentin 875-125 MG eCW1 ([facility]) Augmentin 875-125 MG UNK 07/16/2020 12:00:00 AM EST 1.0 {tab let} suspended Augmentin 875-125 MG eCW1 ([facility]) Augmentin 875-125 MG UNK 07/16/2020 12:00:00 AM EST 1.0 {tab let} suspended Augmentin 875-125 MG eCW1 ([facility]) Augmentin 875-125 MG UNK 07/16/2020 12:00:00 AM EST 1.0 {tab let} suspended Augmentin 875-125 MG eCW1 ([facility]) Augmentin 875-125 MG UNK 07/16/2020 12:00:00 AM EST 1.0 {tab let} suspended Augmentin 875-125 MG eCW1 ([facility]) Augmentin 875-125 MG UNK 07/16/2020 12:00:00 AM EST 1.0 {tab let} suspended Augmentin 875-125 MG eCW1 ([facility]) Augmentin 875-125 MG UNK 07/16/2020 12:00:00 AM EST 1.0 {tablet } active Augmentin 875-125 MG eCW1 ([facility]) Augmentin 875-125 MG UNK 07/16/2020 12:00:00 AM EST 1.0 {tab let} suspended Augmentin 875-125 MG eCW1 ([facility]) Augmentin 875-125 MG UNK 07/16/2020 12:00:00 AM EST 1.0 {tab let} suspended Augmentin 875-125 MG eCW1 ([facility]) Augmentin 875-125 MG UNK 07/16/2020 12:00:00 AM EST 1.0 {tab let} suspended Augmentin 875-125 MG eCW1 ([facility]) Augmentin 875-125 MG UNK 07/16/2020 12:00:00 AM EST 1.0 {tab let} suspended Augmentin 875-125 MG eCW1 ([facility]) 160 mg 07/11/2020 12:00:00 AM EST tablet 90 TAKE ONE TABLET BY MOUTH EVERY DAY TAKE ONE TABLET BY MOUTH EVERY DAY SOLD: 07/12/2020 [facility] 160 mg 07/11/2020 12:00:00 AM EST [...] 1.0 {tablet_as_needed} active Hydrocodone-Acetaminophen 5-325 MG eCW1 ([facility]) Acetaminophen 325 MG / Hydrocodone Adam trate 5 MG Oral Tablet Hydrocodone- Acetaminophen 5-325 MG Hydrocodone-Acetaminophen 5-325 MG 06/13/2020 12:00:00 AM EST 1.0 {tablet_as_needed} active Hydrocodone-Acetaminophen 5-325 MG eCW1 ([facility]) 5-325 mg 06/13/2020 12:00:00 AM EST tablet [...] 1.0 {tablet_as_needed} active Hydrocodone-Acetaminophen 5-325 MG eCW1 ([facility]) Acetaminophen 325 MG / Hydrocodone Adam trate 5 MG Oral Tablet Hydrocodone- Acetaminophen 5-325 MG Hydrocodone-Acetaminophen 5-325 MG 06/13/2020 12:00:00 AM EST 1.0 {tablet_as_needed} active Hydrocodone-Acetaminophen 5-325 MG eCW1 ([facility]) Acetaminophen 325 MG / Hydrocodone Adam trate 5 MG Oral Tablet Hydrocodone- Acetaminophen 5-325 MG Hydrocodone-Acetaminophen 5-325 MG 06/13/2020 12:00:00 AM EST 1.0 {tablet_as_needed} active Hydrocodone-Acetaminophen 5-325 MG eCW1 ([facility]) Acetaminophen 325 MG / Hydrocodone Adam trate 5 MG Oral Tablet Hydrocodone- Acetaminophen 5-325 MG Hydrocodone-Acetaminophen 5-325 MG 06/13/2020 12:00:00 AM EST 1.0 {tablet_as_needed} active Hydrocodone-Acetaminophen 5-325 MG eCW1 ([facility]) 125 mcg 06/12/2020 12:00:00 AM EST tablet [...] 1.0 {tablet_as_needed} active Hydrocodone-Acetaminophen 5-325 MG eCW1 ([facility]) Acetaminophen 325 MG / Hydrocodone Adam trate 5 MG Oral Tablet Hydrocodone- Acetaminophen 5-325 MG Hydrocodone-Acetaminophen 5-325 MG 05/06/2020 12:00:00 AM EST 1.0 {tablet_as_needed} active Hydrocodone-Acetaminophen 5-325 MG eCW1 ([facility]) 5-325 mg 05/06/2020 12:00:00 AM EST tablet [...] 1.0 {tablet_as_needed} active Hydrocodone-Acetaminophen 5-325 MG eCW1 ([facility]) Acetaminophen 325 MG / Hydrocodone Adam trate 5 MG Oral Tablet Hydrocodone- Acetaminophen 5-325 MG Hydrocodone-Acetaminophen 5-325 MG 05/06/2020 12:00:00 AM EST 1.0 {tablet_as_needed} active Hydrocodone-Acetaminophen 5-325 MG eCW1 ([facility]) Acetaminophen 325 MG / Hydrocodone Adam trate 5 MG Oral Tablet Hydrocodone- Acetaminophen 5-325 MG Hydrocodone-Acetaminophen 5-325 MG 05/06/2020 12:00:00 AM EST 1.0 {tablet_as_needed} active Hydrocodone-Acetaminophen 5-325 MG eCW1 ([facility]) Acetaminophen 325 MG / Hydrocodone Adam trate 5 MG Oral Tablet Hydrocodone- Acetaminophen 5-325 MG Hydrocodone-Acetaminophen 5-325 MG 05/06/2020 12:00:00 AM EST 1.0 {tablet_as_needed} active Hydrocodone-Acetaminophen 5-325 MG eCW1 ([facility]) 50 mg 04/26/2020 12:00:00 AM EDT tablet [...] EDT active Levothyroxine Sodium 125 MCG eCW1 ([facility]) Levothyroxine Sodium 0.125 MG Oral Tablet Levothyroxin e Sodium 125 MCG Levothyroxine Sodium 125 MCG 04/09/2020 12:00:00 AM EDT active Levothyroxine Sodium 125 MCG eCW1 ([facility]) Levothyroxine Sodium 0.125 MG Oral Tablet Levothyroxin e Sodium 125 MCG Levothyroxine Sodium 125 MCG 04/09/2020 12:00:00 AM EDT active Levothyroxine Sodium 125 MCG eCW1 ([facility]) Levothyroxine Sodium 0.125 MG Oral Tablet Levothyroxin e Sodium 125 MCG Levothyroxine Sodium 125 MCG 04/09/2020 12:00:00 AM EDT active Levothyroxine Sodium 125 MCG eCW1 ([facility]) Levothyroxine Sodium 0.125 MG Oral Tablet Levothyroxin e Sodium 125 MCG Levothyroxine Sodium 125 MCG 04/09/2020 12:00:00 AM EDT active Levothyroxine Sodium 125 MCG eCW1 ([facility]) Levothyroxine Sodium 0.125 MG Oral Tablet Levothyroxin e Sodium 125 MCG Levothyroxine Sodium 125 MCG 04/09/2020 12:00:00 AM EDT active Levothyroxine Sodium 125 MCG eCW1 ([facility]) Levothyroxine Sodium 0.125 MG Oral Tablet Levothyroxin e Sodium 125 MCG Levothyroxine Sodium 125 MCG 04/09/2020 12:00:00 AM EDT active Levothyroxine Sodium 125 MCG eCW1 ([facility]) Levothyroxine Sodium 0.125 MG Oral Tablet Levothyroxin e Sodium 125 MCG Levothyroxine Sodium 125 MCG 04/09/2020 12:00:00 AM EDT active Levothyroxine Sodium 125 MCG eCW1 ([facility]) Levothyroxine Sodium 0.125 MG Oral Tablet Levothyroxin e Sodium 125 MCG Levothyroxine Sodium 125 MCG 04/09/2020 12:00:00 AM EDT active Levothyroxine Sodium 125 MCG eCW1 ([facility]) Levothyroxine Sodium 0.125 MG Oral Tablet Levothyroxin e Sodium 125 MCG Levothyroxine Sodium 125 MCG 04/09/2020 12:00:00 AM EDT active Levothyroxine Sodium 125 MCG eCW1 ([facility]) Levothyroxine Sodium 0.125 MG Oral Tablet Levothyroxin e Sodium 125 MCG Levothyroxine Sodium 125 MCG 04/09/2020 12:00:00 AM EDT active Levothyroxine Sodium 125 MCG eCW1 ([facility]) Levothyroxine Sodium 0.125 MG Oral Tablet Levothyroxin e Sodium 125 MCG Levothyroxine Sodium 125 MCG 04/09/2020 12:00:00 AM EDT active Levothyroxine Sodium 125 MCG eCW1 ([facility]) Levothyroxine Sodium 0.125 MG Oral Tablet Levothyroxin e Sodium 125 MCG Levothyroxine Sodium 125 MCG 04/09/2020 12:00:00 AM EDT active Levothyroxine Sodium 125 MCG eCW1 ([facility]) Levothyroxine Sodium 0.125 MG Oral Tablet Levothyroxin e Sodium 125 MCG Levothyroxine Sodium 125 MCG 04/09/2020 12:00:00 AM EDT active Levothyroxine Sodium 125 MCG eCW1 ([facility]) Levothyroxine Sodium 0.125 MG Oral Tablet Levothyroxin e Sodium 125 MCG Levothyroxine Sodium 125 MCG 04/09/2020 12:00:00 AM EDT active Levothyroxine Sodium 125 MCG eCW1 ([facility]) Levothyroxine Sodium 0.125 MG Oral Tablet Levothyroxin e Sodium 125 MCG Levothyroxine Sodium 125 MCG 04/09/2020 12:00:00 AM EDT active Levothyroxine Sodium 125 MCG eCW1 ([facility]) Levothyroxine Sodium 0.125 MG Oral Tablet Levothyroxin e Sodium 125 MCG Levothyroxine Sodium 125 MCG 04/09/2020 12:00:00 AM EDT active Levothyroxine Sodium 125 MCG eCW1 ([facility]) Levothyroxine Sodium 0.125 MG Oral Tablet Levothyroxin e Sodium 125 MCG Levothyroxine Sodium 125 MCG 04/09/2020 12:00:00 AM EDT active Levothyroxine Sodium 125 MCG eCW1 ([facility]) Levothyroxine Sodium 0.125 MG Oral Tablet Levothyroxin e Sodium 125 MCG Levothyroxine Sodium 125 MCG 04/09/2020 12:00:00 AM EDT active Levothyroxine Sodium 125 MCG eCW1 ([facility]) Levothyroxine Sodium 0.125 MG Oral Tablet Levothyroxin e Sodium 125 MCG Levothyroxine Sodium 125 MCG 04/09/2020 12:00:00 AM EDT active Levothyroxine Sodium 125 MCG eCW1 ([facility]) Levothyroxine Sodium 0.125 MG Oral Tablet Levothyroxin e Sodium 125 MCG Levothyroxine Sodium 125 MCG 04/09/2020 12:00:00 AM EDT active Levothyroxine Sodium 125 MCG eCW1 ([facility]) 5-325 mg 03/29/2020 12:00:00 AM EDT tablet [...] type / Coverage type Policy ID Covered republican ID Covered republican's relationship to green Policy Green Plan Information [place] [employer] [id number] Self Z [id number] [place] [facility] Part B [id number] Self V [id number] [place] PPO 302/307 [id number] SP [id number] [place] [employer] () Workers Compensation [id number] Self 1 [id number] [place] [employer] ([place] Workers Compensation [id number] Self 1 [id number] [place] [id number] S VYA [id number] [place] [id number] S VYA [id number] ANSI-Commercial [id number] ANSI-Commercial [id number] ANSI-Commercial [id number] ANSI-Commercial [id number] ANSI-Commercial [id number] ANSI-Commercial [id number] ANSI-Commercial [id number] ANSI-Commercial [id number] ANSI-Commercial [id number] BCBS [employer] [id number] Self [id number] ANSI-Commercial [id number] BCBS [employer] [id number] Self [id number] [employer]BS [employer] [id number] Self [id number] ANSI-Commercial [id number] ANSI-Commercial [id number] ANSI-Commercial [id number] ANSI-Commercial [id number] ANSI-Commercial [id number] ANSI-Commercial [id number] ANSI-Commercial 8d3y4822-373n-8972-u9vx-2n1z0b331645 0m3q6400-238m-7378-c7nv-9m5k8v940474 ANSI-Commercial y64l811n-d11r-8eqm-9miq-u3930sm89195 o65h027o-q76y-6feh-1wsg-[id number] [employer] [place] PPO 302/307 [id number] SP [id number] ANSI-Commercial [id number]-4438-542t-lrsf8b507657 ANSI-Commercial gb0411b8-9q1g-6x73-600d-604r40evn0sl hy9017m3-9z9o-5t51-921p-345v81xzx0yv ANSI-Commercial 36p00r5u-9y1s-7q3l-k8c6-8mt3891019t1 20h08n3i-3p1f-8x0f-p1u8-1le3869066g2 ANSI-Commercial 81809g8s-588y-0387-uz73-230i13r1y552 22229x6r-696l-5509-st27-721t15k2v071 ANSI-Commercial [id number]-r060-9a11-7r92-543z96n9f30h 99090005-b971-7f13-1h51-123j57f0l92c ANSI-Commercial 14qk55x4-2gs3-33q4-x01g-75115y28511q 21jc81l4-6er9-09q8-l20t-40142w33081w ANSI-Commercial mb5d74z9-5gpj-239v-415a-us5131uu5252 ud1q76d8-2dlh-098l-790v-lp3392ad1108 ANSI-Commercial t5jem598-9q31-37qj-mp92-8atq87l8170s o3fqi725-6s06-07mg-du91-7igm34z3057t ANSI-Commercial 8lymrph6-224h-64xl-e64s-1266661cspdp 4exxhlw7-833y-11hq-q44f-9699440zlsfv [employer] [place] [id number] S [id number] [email or web address] WORKER COMP [id number] SP [id number] [facility]. O [id number] S [id number] [facility] [place] [id number] SP [id number] [employer] WC [id number] SP [id number] [employer] B [id number] S [id number] SELF PAY ONLY UNAVAILABLE UNAV AILABLE SELF PAY UNAVAILABLE UNAVAILA BLE SELF PAY ONLY - SP1 UNAVAILABLE SP UNAVAILABLE [employer] [place] PPO 302/307 [id number] SP [id number] [facility] [id number] SP [id number] OTHER WORKERS COMPENSATION [id number] SP [id number] [employer] [place] PPO 302/307 [id number] SP [id number] [employer] [place] PPO 302/307 [id number] SP [id number] [employer] [place] PPO 302/307 [id number] SP [id number] [facility] [id number] S [id number] [employer] B [id number] S [id number] ANSI-Commercial [id number]-d04m-630e-6is4-[id number]-n32y-978i-6jk0-[id number] ANSI-Commercial 445ip6hl-9uz7-2e6i-ez5i-987p0os5c9uv 868sn7pi-2bs2-0v0w-fa4b-529u1eo6a2sg Problems, Conditions, and Diagnoses Code Display Name Description Problem Type Effective Dates Data Source(s) Y93.01 Activity, walking, marching and hiking A CTIVITY, WALKING, MARCHING AND HIKING Diagnosis 07/03/2020 05:42:00 PM [facility] Y92.[address] in unspeci fied non-institutional (private) residence as the place of occurrence of the external cause UNSP PLACE IN UNSP NON-INSTITUT (PRIVATE) RESIDENC Diagnosis 07/03/2020 05:42:00 PM [facility] l W00.0XXA Fall on same level due to ice and snow, initial encounter FALL ON SAME LEVEL DUE TO ICE AND SNOW, INITIAL EN Diagnosis 07/03/2020 05:42:00 PM [facility] Z79.891 halfway (current) use of opiate analge sic 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 ANALGESIC Diagnosis 07/03/2020 05:42:00 PM [facility] Z79.899 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 Diagnosis 07/03/2020 05:42:00 PM [facility] l I10 Essential (primary) hypertension ESSENTIAL (PRIMARY) H YPERTENSION Diagnosis 07/03/2020 05:42:00 PM [facility] S60.222A Contusion of left hand, initial encounte r CONTUSION OF LEFT HAND, INITIAL ENCOUNTER Diagnosis 07/03/2020 05:42:00 PM [facility] l S60.212A Contusion of left wrist, initial encount er CONTUSION OF LEFT WRIST, INITIAL ENCOUNTER Diagnosis 07/03/2020 05:42:00 PM [facility] l S69.92XA Unspecified injury of left w rist, hand and finger(s), initial encounter UNSP INJURY OF LEFT WRIST, HAND AND FINGER(S), INIT ENCNTR D iagnosis 07/03/2020 05:42:00 PM [facility] [id number] Constipation Constipation Problem 04/08/2021 12:00:00 A M EDT MEDENT ([facility]) K21.9 [id number] Gastroesophageal ref lux disease, unspecified whether esophagitis present Problem 02/07/2021 12:00:00 AM EDT eCW1 ([facility]) E03.9 [id number] Acquired hypothyroidism Problem 04/09/2020 1 2:00:00 AM EDT eCW1 ([facility]) Surgeries/Procedures Procedure Description Date Indications Data Source(s) OFFICE OUTPATIENT VISIT 25 MINUTES 04/08/2021 12:00:00 AM EDT MEDENT ([facility]) Results ID Date Data Source TSH 01/15/2021 12:00:00 AM EDT eCW1 ([facility]) Name Value Range Interpretation Code Description Data Maria Isabel rce(s) Supporting Document(s) 0.021 0.358-3.740 THYROID STIMULATING HORM ONE eCW1 ([facility]) ID Date Data Source FREE T4 08/08/2020 12:00:00 AM EST eCW1 ([facility]) Name Value Range Interpretation Code Description Data Maria Isabel rce(s) Supporting Document(s) 1.27 0.76-1.46 FREE T4 eCW1 ([facility]) ID Date Data Source URINE CULTURE 07/29/2020 12:00:00 AM EST eCW1 ([facility]) Name Value Range Interpretation Code Description Data Maria Isabel rce(s) Supporting Document(s) URINE CULTURE eCW1 ([facility]) ID Date Data Source [id number] 07/12/2020 11:13:00 AM EST [facility] Name Value Range Interpretation Code Description Data Maria Isabel rce(s) Supporting Document(s) SARS coronavirus 2 RNA Detected [facility] This lab was ordered by [facility] and reported by [facility]. ID Date Data Source Coronavirus 2019 NOSE (Send Out) COVID 07/12/2020 12:00:00 A M EST eCW1 ([facility]) Name Value Range Interpretation Code Description Data Maria Isabel rce(s) Supporting Document(s) This nucleic acid amplification test was developed and its CORONAVIRUS 2019 NOSE W ([facility]) ID Date Data Source [id number] 07/04/2020 06:08:00 AM [facility] Patient: YASHIRA CAZARES Juanjo R [facility]VisitID: [id number] [place] [address] [phone], FRegistration Date/Time: 07/03/2020 15:51 Weight:70.3 kg (E). [...] rce(s) Supporting Document(s) ID Date Data Source [id number] 07/03/2020 05:55:00 PM [facility] rce(s) Supporting Document(s) ID Date Data Source [id number] 07/03/2020 05:54:00 PM [facility] [...] rce(s) Supporting Document(s) ID Date Data Source [id number] 07/03/2020 05:53:00 PM [facility] [...] Source [id number] 07/02/2020 09:23:00 AM EST MEDENT ([facility]) Name Value Range Interpretation Code Description Data Maria Isabel rce(s) Supporting Document(s) Ultrasound of the Liver Laboratory test result MEDENT ([facility]) ID Date Data Source [id number] 06/24/2020 12:05:00 PM EST MEDENT ([employer] [facility]) Name Value Range Interpretation Code Description Data [facility] rce(s) Supporting Document(s) Gamma glutamyl transferase [Enzymatic activity/volume] in Serum or Plasma 53 U/L 5-55 MEDENT ([facility] ) labs are good mild increase in alk phosp hatase would repeat it in 3 months. ID Date Data Source [id number] 06/24/2020 12:05:00 PM EST MEDENT ([employer] [facility] [employer]) Name Value Range Interpretation Code Description Data [facility](s) Supporting Document(s) Glucose, Fasting 97 mg/dL 70-100 MEDENT ([employer] [facility] [employer]) labs are good mild increase in alk phosp hatase would repeat it in 3 months. Creatinine For GFR 0.94 mg/dL 0.55-1.30 MEDENT ([email or web address] [facility] [employer]) labs are good mild increase in alk [...] in 3 months. ID Date Data Source [id number] 06/24/2020 12:05:00 PM EST [facility] ([facility] [...] in 3 months. ID Date Data Source [id number] 06/24/2020 12:05:00 PM EST MEDENT ([facility]) Name Value Range Interpretation Code Description Data Maria Isabel rce(s) Supporting Document(s) Alkaline phosphatase.bone [Enzymatic activity/volume] in Serum or Plasma Laboratory test result MEDENT ([facility]) Procedure Social History Code Duration Value Status Description Data Source(s ) Smoking 03/18/2021 12:00:00 AM EDT Former Smoker completed Former Smoker eCW1 ([facility]) Smoking 03/18/2021 12:00:00 AM EDT Former Smoker completed Former Smoker eCW1 ([facility]) Smoking 02/07/2021 12:00:00 AM EDT Former Smoker completed Former Smoker eCW1 ([facility]) Smoking 02/07/2021 12:00:00 AM EDT Former Smoker completed Former Smoker eCW1 ([facility]) Smoking 02/07/2021 12:00:00 AM EDT Former Smoker completed Former Smoker eCW1 ([facility]) Smoking 02/07/2021 12:00:00 AM EDT Former Smoker completed Former Smoker eCW1 ([facility]) Smoking 02/07/2021 12:00:00 AM EDT Former Smoker completed Former Smoker eCW1 ([facility]) Smoking 02/07/2021 12:00:00 AM EDT Former Smoker completed Former Smoker eCW1 ([facility]) Smoking 01/15/2021 12:00:00 AM EDT Former Smoker completed Former Smoker eCW1 ([facility]) Smoking 01/15/2021 12:00:00 AM EDT Former Smoker completed Former Smoker eCW1 ([facility]) Smoking 01/15/2021 12:00:00 AM EDT Former Smoker completed Former Smoker eCW1 ([facility]) Smoking 08/08/2020 12:00:00 AM EST Former Smoker completed Former Smoker eCW1 ([facility]) Smoking 08/08/2020 12:00:00 AM EST Former Smoker completed Former Smoker eCW1 ([facility]) Smoking 08/08/2020 12:00:00 AM EST Former Smoker completed Former Smoker eCW1 ([facility]) Smoking 08/08/2020 12:00:00 AM EST Former Smoker completed Former Smoker eCW1 ([facility]) Smoking 08/08/2020 12:00:00 AM EST Former Smoker completed Former Smoker eCW1 ([facility]) Smoking 08/08/2020 12:00:00 AM EST Former Smoker completed Former Smoker eCW1 ([facility]) Smoking 08/08/2020 12:00:00 AM EST Former Smoker completed Former Smoker eCW1 ([facility]) Smoking 08/08/2020 12:00:00 AM EST Former Smoker completed Former Smoker eCW1 ([facility]) Smoking 08/08/2020 12:00:00 AM EST Former Smoker completed Former Smoker eCW1 ([facility]) Smoking 08/08/2020 12:00:00 AM EST Former Smoker completed Former Smoker eCW1 ([facility]) Smoking 08/08/2020 12:00:00 AM EST Former Smoker completed Former Smoker eCW1 ([facility]) Smoking 08/08/2020 12:00:00 AM EST Former Smoker completed Former Smoker eCW1 ([facility]) Smoking 07/29/2020 12:00:00 AM EST Former Smoker completed Former Smoker eCW1 ([facility]) Smoking 07/29/2020 12:00:00 AM EST Former Smoker completed Former Smoker eCW1 ([facility]) Smoking 07/29/2020 12:00:00 AM EST Former Smoker completed Former Smoker eCW1 ([facility]) Smoking 07/12/2020 12:00:00 AM EST Former Smoker completed Former Smoker eCW1 ([facility]) Smoking 07/12/2020 12:00:00 AM EST Former Smoker completed Former Smoker eCW1 ([facility]) Smoking 07/12/2020 12:00:00 AM EST Former Smoker completed Former Smoker eCW1 ([facility]) Smoking 07/12/2020 12:00:00 AM EST Former Smoker completed Former Smoker eCW1 ([facility]) Smoking 05/09/2020 12:00:00 AM EST Former Smoker completed Former Smoker eCW1 ([facility]) Smoking 05/09/2020 12:00:00 AM EST Former Smoker completed Former Smoker eCW1 ([facility]) Smoking 05/09/2020 12:00:00 AM EST Former Smoker completed Former Smoker eCW1 ([facility]) Smoking 05/09/2020 12:00:00 AM EST Former Smoker completed Former Smoker eCW1 ([facility]) Smoking 05/09/2020 12:00:00 AM EST Former Smoker completed Former Smoker eCW1 ([facility]) Smoking 05/09/2020 12:00:00 AM EST Former Smoker completed Former Smoker eCW1 ([facility]) Smoking 05/09/2020 12:00:00 AM EST Former Smoker completed Former Smoker eCW1 ([facility]) Vital Signs ID Date Data Source UNK [...] 29.3 k g/m2 MEDENT ([facility]) Body temperature 98.1 [degF] 98.1 [degF] eCW1 ( [facility]) Systolic blood pressure 135 mm[Hg] 135 mm[Hg] e CW1 ([facility]) Diastolic blood pressure 86 mm[Hg] 86 mm[Hg] eCW1 ([facility]) Body weight 189 [lb_av] 189 [lb_av] eCW1 ([facility]) Body weight 85.73 kg 85.73 kg eCW1 ([facility]) Body height 67 [in_i] 67 [in_i] eCW1 ([facility]) Body mass index (BMI) [Ratio] 29.60 kg/m2 29.60 kg/m2 eCW1 ([facility]) Heart rate 82 /min 82 /min eCW1 ([facility]) Respiratory rate 18 /min 18 /min eCW1 ([facility]) Body weight 184 [lb_av] 184 [lb_av] eCW1 ([facility]) Body height 67 [in_i] 67 [in_i] eCW1 ([facility]) Body mass index (BMI) [Ratio] 28.82 kg/m2 28.82 kg/m2 eCW1 ([facility]) Heart rate 80 /min 80 /min eCW1 ([facility]) Respiratory rate 18 /min 18 /min eCW1 ([facility]) Body temperature 97.9 [degF] 97.9 [degF] eCW1 ( [facility]) Systolic blood pressure 124 mm[Hg] 124 mm[Hg] e CW1 ([facility]) Diastolic blood pressure 77 mm[Hg] 77 mm[Hg] eCW1 ([facility]) Body weight 184 [lb_av] 184 [lb_av] eCW1 ([facility]) Body height 67 [in_i] 67 [in_i] eCW1 ([facility]) Body mass index (BMI) [Ratio] 28.82 kg/m2 28.82 kg/m2 eCW1 ([facility]) Heart rate 80 /min 80 /min eCW1 ([facility]) Respiratory rate 18 /min 18 /min eCW1 ([facility]) Body temperature 98.3 [degF] 98.3 [degF] eCW1 ( [facility]) Systolic blood pressure 121 mm[Hg] 121 mm[Hg] e CW1 ([facility]) Diastolic blood pressure 67 mm[Hg] 67 mm[Hg] eCW1 ([facility]) Body weight 186 [lb_av] 186 [lb_av] eCW1 ([facility]) Body height 67 [in_i] 67 [in_i] eCW1 ([facility]) Body mass index (BMI) [Ratio] 29.13 kg/m2 29.13 kg/m2 eCW1 ([facility]) Heart rate 73 /min 73 /min eCW1 ([facility]) Respiratory rate 18 /min 18 /min eCW1 ([facility]) Body temperature 98.4 [degF] 98.4 [degF] eCW1 ( [facility]) Systolic blood pressure 128 mm[Hg] 128 mm[Hg] e CW1 ([facility]) Diastolic blood pressure 73 mm[Hg] 73 mm[Hg] eCW1 ([facility]) Body height 67 [in_i] 67 [in_i] eCW1 ([facility]) Body mass index (BMI) [Ratio] 29.13 kg/m2 29.13 kg/m2 eCW1 ([facility]) Body weight 186 [lb_av] 186 [lb_av] eCW1 ([facility]) Heart rate 84 /min 84 /min eCW1 ([facility]) Respiratory rate 18 /min 18 /min eCW1 ([facility]) Body temperature 98.1 [degF] 98.1 [degF] eCW1 ( [facility]) Systolic blood pressure 117 mm[Hg] 117 mm[Hg] e CW1 ([facility]) Diastolic blood pressure 75 mm[Hg] 75 mm[Hg] eCW1 ([facility]) Body weight 188 [lb_av] 188 [lb_av] eCW1 ([facility]) Body height 67 [in_i] 67 [in_i] eCW1 ([facility]) Body mass index (BMI) [Ratio] 29.44 kg/m2 29.44 kg/m2 eCW1 ([facility]) Heart rate 88 /min 88 /min eCW1 ([facility]) Respiratory rate 18 /min 18 /min eCW1 ([facility]) Body temperature 98.3 [degF] 98.3 [degF] eCW1 ( [facility]) Systolic blood pressure 129 mm[Hg] 129 mm[Hg] e CW1 ([facility]) Diastolic blood pressure 82 mm[Hg] 82 mm[Hg] eCW1 ([facility]) Body weight 186.00 [lb_av] 186.00 [lb_av] MEDEN T ([facility]) Body height 67.5 [in_i] 67.5 [in_i] [facility]) 5'7.50" Systolic blood pressure 133 mm[Hg] 133 mm[Hg] [...] Body weight 185 [lb_av] 185 [lb_av] eCW1 ([facility]) Body height 67 [in_i] 67 [in_i] eCW1 ([facility]) Body mass index (BMI) [Ratio] 28.97 kg/m2 28.97 kg/m2 eCW1 ([facility]) Heart rate 85 /min 85 /min eCW1 ([facility]) Respiratory rate 18 /min 18 /min eCW1 ([facility]) Body temperature 98.8 [degF] 98.8 [degF] eCW1 ( [facility]) Systolic blood pressure 119 mm[Hg] 119 mm[Hg] e CW1 ([facility]) Diastolic blood pressure 69 mm[Hg] 69 mm[Hg] eCW1 ([facility]) Patient Treatment Plan of Care Planned Activity Planned Date Details Description Data Source (s) Acetaminophen 325 MG / Hydrocodone Bitartrate 5 MG Ora l Tablet 04/02/2021 12:00:00 AM EDT eCW1 ([facility]) Lidocaine Hydrochloride 0.05 MG/MG Transdermal Patch [ Lidoderm] 03/18/2021 12:00:00 AM EDT eCW1 ([facility]) tramadol hydrochloride 50 MG Oral Tablet 03/18/2021 12:00:00 AM EDT eCW1 ([facility]) Lidocaine Hydrochloride 0.05 MG/MG Transdermal Patch [ Lidoderm] 03/18/2021 12:00:00 AM EDT eCW1 ([facility]) tramadol hydrochloride 50 MG Oral Tablet 03/18/2021 12:00:00 AM EDT eCW1 ([facility]) Acetaminophen 325 MG / Hydrocodone Bitartrate 5 MG Ora l Tablet 02/18/2021 12:00:00 AM EDT eCW1 ([facility]) Acetaminophen 325 MG / Hydrocodone Bitartrate 5 MG Ora l Tablet 02/18/2021 12:00:00 AM EDT eCW1 ([facility]) Acetaminophen 325 MG / Hydrocodone Bitartrate 5 MG Ora l Tablet 02/18/2021 12:00:00 AM EDT eCW1 ([facility]) tramadol hydrochloride 50 MG Oral Tablet 02/10/2021 12:00:00 AM EDT eCW1 ([facility]) tramadol hydrochloride 50 MG Oral Tablet 02/10/2021 12:00:00 AM EDT eCW1 ([facility]) tramadol hydrochloride 50 MG Oral Tablet 02/10/2021 12:00:00 AM EDT eCW1 ([facility]) tramadol hydrochloride 50 MG Oral Tablet 02/10/2021 12:00:00 AM EDT eCW1 ([facility]) tramadol hydrochloride 50 MG Oral Tablet 02/10/2021 12:00:00 AM EDT eCW1 ([facility]) Omeprazole 20 MG Delayed Release Oral Capsule 02/07/2021 12:00:00 A M EDT eCW1 ([facility]) Omeprazole 20 MG Delayed Release Oral Capsule 02/07/2021 12:00:00 A M EDT eCW1 ([facility]) Omeprazole 20 MG Delayed Release Oral Capsule 02/07/2021 12:00:00 A M EDT eCW1 ([facility]) POLYETHYLENE GLYCOL 3350 142 MG/ML Oral Solution [Delphine lax] 02/07/2021 12:00:00 AM EDT eCW1 ([facility]) Omeprazole 20 MG Delayed Release Oral Capsule 02/07/2021 12:00:00 A M EDT eCW1 ([facility]) POLYETHYLENE GLYCOL 3350 142 MG/ML Oral Solution [Delphine lax] 02/07/2021 12:00:00 AM EDT eCW1 ([facility]) POLYETHYLENE GLYCOL 3350 142 MG/ML Oral Solution [Delphine lax] 02/07/2021 12:00:00 AM EDT eCW1 ([facility]) Omeprazole 20 MG Delayed Release Oral Capsule 02/07/2021 12:00:00 A M EDT eCW1 ([facility]) POLYETHYLENE GLYCOL 3350 142 MG/ML Oral Solution [Delphine lax] 02/07/2021 12:00:00 AM EDT eCW1 ([facility]) Omeprazole 20 MG Delayed Release Oral Capsule 02/07/2021 12:00:00 A M EDT eCW1 ([facility]) POLYETHYLENE GLYCOL 3350 142 MG/ML Oral Solution [Delphine lax] 02/07/2021 12:00:00 AM EDT eCW1 ([facility]) Omeprazole 20 MG Delayed Release Oral Capsule 02/07/2021 12:00:00 A M EDT eCW1 ([facility]) POLYETHYLENE GLYCOL 3350 142 MG/ML Oral Solution [Delphine lax] 02/07/2021 12:00:00 AM EDT eCW1 ([facility]) Omeprazole 20 MG Delayed Release Oral Capsule 02/07/2021 12:00:00 A M EDT eCW1 ([facility]) Acetaminophen 325 MG / Hydrocodone Bitartrate 5 MG Ora l Tablet 01/16/2021 12:00:00 AM EDT eCW1 ([facility]) Acetaminophen 325 MG / Hydrocodone Bitartrate 5 MG Ora l Tablet 01/16/2021 12:00:00 AM EDT eCW1 ([facility]) Acetaminophen 325 MG / Hydrocodone Bitartrate 5 MG Ora l Tablet 01/16/2021 12:00:00 AM EDT eCW1 ([facility]) Acetaminophen 325 MG / Hydrocodone Bitartrate 5 MG Ora l Tablet 12/05/2020 12:00:00 AM EDT eCW1 ([facility]) Acetaminophen 325 MG / Hydrocodone Bitartrate 5 MG Ora l Tablet 12/05/2020 12:00:00 AM EDT eCW1 ([facility]) Acetaminophen 325 MG / Hydrocodone Bitartrate 5 MG Ora l Tablet 12/05/2020 12:00:00 AM EDT eCW1 ([facility]) Acetaminophen 325 MG / Hydrocodone Bitartrate 5 MG Ora l Tablet 10/29/2020 12:00:00 AM EDT eCW1 ([facility]) Acetaminophen 325 MG / Hydrocodone Bitartrate 5 MG Ora l Tablet 10/29/2020 12:00:00 AM EDT eCW1 ([facility]) Acetaminophen 325 MG / Hydrocodone Bitartrate 5 MG Ora l Tablet 10/29/2020 12:00:00 AM EDT eCW1 ([facility]) Acetaminophen 325 MG / Hydrocodone Bitartrate 5 MG Ora l Tablet 09/27/2020 12:00:00 AM EDT eCW1 ([facility]) Acetaminophen 325 MG / Hydrocodone Bitartrate 5 MG Ora l Tablet 09/27/2020 12:00:00 AM EDT eCW1 ([facility]) Acetaminophen 325 MG / Hydrocodone Bitartrate 5 MG Ora l Tablet 09/27/2020 12:00:00 AM EDT eCW1 ([facility]) Acetaminophen 325 MG / Hydrocodone Bitartrate 5 MG Ora l Tablet 08/28/2020 12:00:00 AM EST eCW1 ([facility]) Levothyroxine Sodium 0.1 MG Oral Tablet 08/13/2020 12:00:00 AM EST eCW1 ([facility]) Levothyroxine Sodium 0.1 MG Oral Tablet 08/13/2020 12:00:00 AM EST eCW1 ([facility]) Levothyroxine Sodium 0.1 MG Oral Tablet 08/13/2020 12:00:00 AM EST eCW1 ([facility]) Levothyroxine Sodium 0.1 MG Oral Tablet 08/13/2020 12:00:00 AM EST eCW1 ([facility]) Levothyroxine Sodium 0.1 MG Oral Tablet 08/13/2020 12:00:00 AM EST eCW1 ([facility]) Levothyroxine Sodium 0.1 MG Oral Tablet 08/13/2020 12:00:00 AM EST eCW1 ([facility]) Levothyroxine Sodium 0.1 MG Oral Tablet 08/13/2020 12:00:00 AM EST eCW1 ([facility]) Levothyroxine Sodium 0.1 MG Oral Tablet 08/13/2020 12:00:00 AM EST eCW1 ([facility]) Levothyroxine Sodium 0.1 MG Oral Tablet 08/13/2020 12:00:00 AM EST eCW1 ([facility]) Levothyroxine Sodium 0.1 MG Oral Tablet 08/13/2020 12:00:00 AM EST eCW1 ([facility]) Levothyroxine Sodium 0.1 MG Oral Tablet 08/13/2020 12:00:00 AM EST eCW1 ([facility]) Levothyroxine Sodium 0.1 MG Oral Tablet 08/13/2020 12:00:00 AM EST eCW1 ([facility]) Levothyroxine Sodium 0.1 MG Oral Tablet 08/13/2020 12:00:00 AM EST eCW1 ([facility]) Levothyroxine Sodium 0.1 MG Oral Tablet 08/13/2020 12:00:00 AM EST eCW1 ([facility]) NITROFURANTOIN, MACROCRYSTALS 25 MG / Ni trofurantoin, Monohydrate 75 MG Oral Capsule [Macrobid] 07/29/2020 12:00:00 AM EST eC W1 ([facility]) NITROFURANTOIN, MACROCRYSTALS 25 MG / Ni trofurantoin, Monohydrate 75 MG Oral Capsule [Macrobid] 07/29/2020 12:00:00 AM EST eC W1 ([facility]) NITROFURANTOIN, MACROCRYSTALS 25 MG / Ni trofurantoin, Monohydrate 75 MG Oral Capsule [Macrobid] 07/29/2020 12:00:00 AM EST eC W1 ([facility]) Acetaminophen 325 MG / Hydrocodone Bitartrate 5 MG Ora l Tablet 07/22/2020 12:00:00 AM EST eCW1 ([facility]) Augmentin 875-125 MG 07/16/2020 12:00:00 AM EST eCW1 ([facility]) Augmentin 875-125 MG 07/16/2020 12:00:00 AM EST eCW1 ([facility]) Augmentin 875-125 MG 07/16/2020 12:00:00 AM EST eCW1 ([facility]) Acetaminophen 325 MG / Hydrocodone Bitartrate 5 MG Ora l Tablet 06/13/2020 12:00:00 AM EST eCW1 ([facility]) Acetaminophen 325 MG / Hydrocodone Bitartrate 5 MG Ora l Tablet 06/13/2020 12:00:00 AM EST eCW1 ([facility]) Acetaminophen 325 MG / Hydrocodone Bitartrate 5 MG Ora l Tablet 06/13/2020 12:00:00 AM EST eCW1 ([facility]) Acetaminophen 325 MG / Hydrocodone Bitartrate 5 MG Ora l Tablet 05/06/2020 12:00:00 AM EST eCW1 ([facility]) Acetaminophen 325 MG / Hydrocodone Bitartrate 5 MG Ora l Tablet 05/06/2020 12:00:00 AM EST eCW1 ([facility]) Levothyroxine Sodium 0.125 MG Oral Tablet 04/09/2020 12:00:00 AM ED T eCW1 ([facility]) Levothyroxine Sodium 0.125 MG Oral Tablet 04/09/2020 12:00:00 AM ED T eCW1 ([facility]) Levothyroxine Sodium 0.125 MG Oral Tablet 04/09/2020 12:00:00 AM ED T eCW1 ([facility]) Levothyroxine Sodium 0.125 MG Oral Tablet 04/09/2020 12:00:00 AM ED T eCW1 ([facility]) Levothyroxine Sodium 0.125 MG Oral Tablet 04/09/2020 12:00:00 AM ED T eCW1 ([facility]) Levothyroxine Sodium 0.125 MG Oral Tablet 04/09/2020 12:00:00 AM ED T eCW1 ([facility]) Levothyroxine Sodium 0.125 MG Oral Tablet 04/09/2020 12:00:00 AM ED T eCW1 ([facility]) Levothyroxine Sodium 0.125 MG Oral Tablet 04/09/2020 12:00:00 AM ED T eCW1 ([facility]) Levothyroxine Sodium 0.125 MG Oral Tablet 04/09/2020 12:00:00 AM ED T eCW1 ([facility]) Levothyroxine Sodium 0.125 MG Oral Tablet 04/09/2020 12:00:00 AM ED T eCW1 ([facility]) Levothyroxine Sodium 0.125 MG Oral Tablet 04/09/2020 12:00:00 AM ED T eCW1 ([facility])
== END 2021-04-17 16:29 | disposition home or self-care (01) ==
LOC: M ED 11:31
DX: S93.402A Sprain of unspecified ligament of left ankle, initial encounter (principal); S80.212A Abrasion, left knee, initial encounter; S80.01XA Contusion of right knee, initial encounter; W19.XXXA Unspecified fall, initial encounter; Y92.89 Other specified places as the place of occurrence of the external cause; Y93.9 Activity, unspecified; Y99.0 Civilian activity done for income or pay; I10 Essential (primary) hypertension; E78.5 Hyperlipidemia, unspecified; E03.9 Hypothyroidism, unspecified; Z79.899 Other long term (current) drug therapy

== ENCOUNTER → 2021-07-25 | Outpatient (CLI) | payer BC ==
[~2021-07-25] MED LIST changes: -AMLO1TAB24; +AMLO1TAB24 PO; -HYDR-3713; +HYDR-3713 PO; +LEVO100T5; +OMEP-173; +ROSU10TA6 PO; +SOD1.479; +SYNT125T PO; +TIZA2CAP PO; -TRAM50TA2; +TRAM50TA2 PO; +VALS1TAB67 PO
== END ==
LOC: M LABSMTC 09:24
PROVIDERS: ATTEND Anesthesiology
DX: Z01.812 Encounter for preprocedural laboratory examination (principal)

== ENCOUNTER → 2021-08-19 | Outpatient (REF) | payer BC ==
[2021-08-19 16:55] LABS: ALBUMIN 4.2 GM/DL (3.2-5.2); ALT/SGPT 23 U/L (12-78); BILIRUBIN,TOTAL 0.2 MG/DL (0.2-1.0); BLOOD UREA NITROGEN 21 MG/DL (7-18); CALCIUM LEVEL 9.6 MG/DL (8.5-10.1); CARBON DIOXIDE LEVEL 28 MEQ/L (21-32); CHLORIDE LEVEL 104 MEQ/L (98-107); GLOMERULAR FILTRATION RATE > 60.0 (>51); GLUCOSE, FASTING 93 MG/DL (70-100); POTASSIUM SERUM 4.9 MEQ/L (3.5-5.1); SODIUM LEVEL 138 MEQ/L (136-145); TOTAL PROTEIN 7.5 GM/DL (6.4-8.2)
== END ==
LOC: M LAB REF 15:38
PROVIDERS: ATTEND Internal Medicine Gastroenterology
DX: R94.5 Abnormal results of liver function studies (principal)

== ENCOUNTER → 2021-08-19 | Outpatient (REF) | payer BC ==
[2021-08-19 16:56] LABS: BLOOD UREA NITROGEN 21 MG/DL (7-18); CALCIUM LEVEL 9.6 MG/DL (8.5-10.1); CARBON DIOXIDE LEVEL 30 MEQ/L (21-32); CHLORIDE LEVEL 104 MEQ/L (98-107); CHOLESTEROL LEVEL 218 MG/DL (<200); CHOLESTEROL RISK RATIO 3.406 (<5); CREATININE FOR GFR 0.79 MG/DL (0.55-1.30); FREE T4 1.11 NG/DL (0.76-1.46); GLOMERULAR FILTRATION RATE > 60.0 (>51); GLUCOSE, FASTING 95 MG/DL (70-100); HDL CHOLESTEROL 64 MG/DL (>40); LDL CHOLESTEROL 119 MG/DL (<100); NON-HDL-C 154 MG/DL; SODIUM LEVEL 138 MEQ/L (136-145); THYROID STIMULATING HORMONE 0.365 uIU/ML (0.358-3.740); TRIGLYCERIDES LEVEL 173 MG/DL (<150)
== END ==
LOC: M SFHCCLAY 09:30
PROVIDERS: ATTEND Family Medicine
DX: I11.9 Hypertensive heart disease without heart failure (principal); E78.5 Hyperlipidemia, unspecified; E03.9 Hypothyroidism, unspecified

== ENCOUNTER → 2021-11-17 | Outpatient (CLI) | payer BC | LOC: M RAD 10:40 | PROVIDERS: ATTEND Family Medicine | DX: F17.211 Nicotine dependence, cigarettes, in remission (principal) ==

== ENCOUNTER → 2022-03-04 | Outpatient (CLI) | payer BC | LOC: M WHC 09:15 | PROVIDERS: ATTEND Internal Medicine Gastroenterology | DX: K74.3 Primary biliary cirrhosis (principal) ==

== ENCOUNTER → 2022-03-04 | Outpatient (CLI) | payer BC ==
[2022-03-04 14:25] LABS: BLOOD UREA NITROGEN 20 MG/DL (7-18); CALCIUM LEVEL 9.4 MG/DL (8.8-10.2); CARBON DIOXIDE LEVEL 30 MEQ/L (21-32); CHLORIDE LEVEL 103 MEQ/L (98-107); CREATININE FOR GFR 0.92 MG/DL (0.55-1.30); FREE T4 0.92 NG/DL (0.76-1.46); GLOMERULAR FILTRATION RATE > 60.0 (>45); GLUCOSE, FASTING 89 MG/DL (70-100); POTASSIUM SERUM 4.7 MEQ/L (3.5-5.1); SODIUM LEVEL 137 MEQ/L (136-145); THYROID STIMULATING HORMONE 0.113 uIU/ML (0.358-3.740)
== END ==
LOC: M PLALAB 10:19
PROVIDERS: ATTEND Family Medicine
DX: E03.9 Hypothyroidism, unspecified (principal); I11.9 Hypertensive heart disease without heart failure

== ENCOUNTER → 2022-03-04 | Outpatient (CLI) | payer BC ==
[2022-03-04 13:18] LABS: BASO # 0.1 10^3/uL (0.0-0.2); BASO % 0.9 % (0.0-1.0); EOS # 0.2 10^3/uL (0.0-0.5); EOS % 4.2 % (0.0-3.0); HEMATOCRIT 38.4 % (36.0-47.0); HEMOGLOBIN 12.2 g/dl (12.0-15.5); LYMPH # 2.3 10^3/uL (1.5-5.0); LYMPH % 40.5 % (24.0-44.0); MEAN CORPUSCULAR HEMOGLOBIN 27.9 pg (27.0-33.0); MEAN CORPUSCULAR HGB CONC 31.8 g/dl (32.0-36.5); MEAN CORPUSCULAR VOLUME 87.7 fl (80.0-96.0); MONO # 0.4 10^3/uL (0.0-0.8); MONO % 7.7 % (2.0-8.0); NEUTROPHILS # 2.7 10^3/uL (1.5-8.5); NEUTROPHILS % 46.4 % (36.0-66.0); PLATELET COUNT, AUTOMATED 333 10^3/uL (150-450); RED BLOOD COUNT 4.38 10^6/uL (4.00-5.40); WHITE BLOOD COUNT 5.7 10^3/uL (4.0-10.0)
[2022-03-04 14:36] LABS: ALBUMIN 3.6 GM/DL (3.2-5.2); ALT/SGPT 24 U/L (12-78); BILIRUBIN,TOTAL 0.3 MG/DL (0.2-1.0); BLOOD UREA NITROGEN 20 MG/DL (7-18); CALCIUM LEVEL 9.1 MG/DL (8.8-10.2); CARBON DIOXIDE LEVEL 29 MEQ/L (21-32); CHLORIDE LEVEL 104 MEQ/L (98-107); CREATININE FOR GFR 0.91 MG/DL (0.55-1.30); GLOMERULAR FILTRATION RATE > 60.0 (>45); GLUCOSE, FASTING 95 MG/DL (70-100); POTASSIUM SERUM 4.7 MEQ/L (3.5-5.1); SODIUM LEVEL 138 MEQ/L (136-145); TOTAL PROTEIN 7.7 GM/DL (6.4-8.2)
== END ==
LOC: M PLALAB 10:21
PROVIDERS: ATTEND Internal Medicine Gastroenterology
DX: K74.3 Primary biliary cirrhosis (principal)

== ENCOUNTER → 2022-08-18 | Outpatient (REF) | payer OTHER | LOC: M SFHCCLAY 10:57 | PROVIDERS: ATTEND Physician Assistant | DX: R30.0 Dysuria (principal) ==

== ENCOUNTER → 2022-09-09 | Outpatient (REF) | payer OTHER ==
[2022-09-09 18:39] LABS: ALBUMIN 3.7 G/DL (3.2-5.2); ALKALINE PHOSPHATASE 119 U/L (46-116); ALT/SGPT 17 U/L (7.0-40); AST/SGOT 15 U/L (<34); BILIRUBIN,TOTAL 0.3 MG/DL (0.3-1.2); BLOOD UREA NITROGEN 25 MG/DL (9-23); CALCIUM LEVEL 9.3 MG/DL (8.3-10.6); CARBON DIOXIDE LEVEL 29 MMOL/L (20-31); CHLORIDE LEVEL 104 MMOL/L (98-107); CHOLESTEROL LEVEL 199 MG/DL (<200); CHOLESTEROL RISK RATIO 3.11 (<5); CREATININE FOR GFR 0.78 MG/DL (0.55-1.30); FREE T4 1.14 NG/DL (0.89-1.76); GLOMERULAR FILTRATION RATE > 60.0 (>45); GLUCOSE, FASTING 91 MG/DL (74-106); HDL CHOLESTEROL 63.8 MG/DL (>40); LDL CHOLESTEROL 103.6 MG/DL (<100); NON-HDL-C 135.2 MG/DL; POTASSIUM SERUM 4.9 MMOL/L (3.5-5.1); SODIUM LEVEL 140 MMOL/L (136-145); THYROID STIMULATING HORMONE 0.186 uIU/ML (0.55-4.78); TRIGLYCERIDES LEVEL 158 MG/DL (<150)
== END ==
LOC: M SFHCCLAY 09:30
PROVIDERS: ATTEND Nurse Practitioner Family
DX: E03.9 Hypothyroidism, unspecified (principal); I11.9 Hypertensive heart disease without heart failure; Z13.220 Encounter for screening for lipoid disorders

== ENCOUNTER → 2022-09-09 | Outpatient (REF) | payer BC ==
[2022-09-09 17:59] LABS: BASO # 0.1 10^3/uL (0.0-0.2); BASO % 1.1 % (0.0-1.0); EOS # 0.2 10^3/uL (0.0-0.5); EOS % 4.4 % (0.0-3.0); HEMOGLOBIN 11.5 g/dl (12.0-15.5); LYMPH % 37.1 % (24.0-44.0); MEAN CORPUSCULAR HEMOGLOBIN 28.5 pg (27.0-33.0); MEAN CORPUSCULAR HGB CONC 31.9 g/dl (32.0-36.5); MEAN CORPUSCULAR VOLUME 89.1 fl (80.0-96.0); MONO # 0.4 10^3/uL (0.0-0.8); MONO % 8.1 % (2.0-8.0); NEUTROPHILS # 2.7 10^3/uL (1.5-8.5); NEUTROPHILS % 49.1 % (36.0-66.0); PLATELET COUNT, AUTOMATED 348 10^3/uL (150-450); RED BLOOD COUNT 4.04 10^6/uL (4.00-5.40); WHITE BLOOD COUNT 5.4 10^3/uL (4.0-10.0)
[2022-09-09 18:38] LABS: ALBUMIN 3.8 G/DL (3.2-5.2); ALKALINE PHOSPHATASE 119 U/L (46-116); ALT/SGPT 16 U/L (7.0-40); AST/SGOT 15 U/L (<34); BILIRUBIN,TOTAL 0.3 MG/DL (0.3-1.2); BLOOD UREA NITROGEN 25 MG/DL (9-23); CALCIUM LEVEL 9.3 MG/DL (8.3-10.6); CARBON DIOXIDE LEVEL 29 MMOL/L (20-31); CHLORIDE LEVEL 104 MMOL/L (98-107); CREATININE FOR GFR 0.77 MG/DL (0.55-1.30); GLOMERULAR FILTRATION RATE > 60.0 (>45); GLUCOSE, FASTING 90 MG/DL (74-106); POTASSIUM SERUM 4.9 MMOL/L (3.5-5.1); SODIUM LEVEL 140 MMOL/L (136-145); TOTAL PROTEIN 7.1 G/DL (5.7-8.2)
== END ==
LOC: M LABDRAWC 17:03
PROVIDERS: ATTEND Internal Medicine Gastroenterology
DX: K74.3 Primary biliary cirrhosis (principal)

== ENCOUNTER → 2023-04-21 | Outpatient (REF) | payer OTHER ==
[2023-04-21 12:44] LABS: ALBUMIN 3.8 G/DL (3.2-5.2); ALKALINE PHOSPHATASE 134 U/L (46-116); ALT/SGPT 17 U/L (7.0-40); AST/SGOT 14 U/L (<34); BILIRUBIN,TOTAL 0.4 MG/DL (0.3-1.2); BLOOD UREA NITROGEN 21 MG/DL (9-23); CALCIUM LEVEL 9.4 MG/DL (8.3-10.6); CARBON DIOXIDE LEVEL 28 MMOL/L (20-31); CHLORIDE LEVEL 101 MMOL/L (98-107); CHOLESTEROL LEVEL 193 MG/DL (<200); CREATININE FOR GFR 0.91 MG/DL (0.55-1.30); FREE T4 1.03 NG/DL (0.89-1.76); GLOMERULAR FILTRATION RATE > 60.0 (>45); GLUCOSE, FASTING 89 MG/DL (74-106); POTASSIUM SERUM 4.7 MMOL/L (3.5-5.1); SODIUM LEVEL 136 MMOL/L (136-145); THYROID STIMULATING HORMONE 0.127 uIU/ML (0.55-4.78); TOTAL PROTEIN 7.3 G/DL (5.7-8.2); TRIGLYCERIDES LEVEL 145 MG/DL (<150)
[2023-04-21 18:36] LABS: CHOLESTEROL RISK RATIO 2.66 (<5); HDL CHOLESTEROL 72.4 MG/DL (>40); LDL CHOLESTEROL 91.6 MG/DL (<100); NON-HDL-C 120.6 MG/DL
== END ==
LOC: M SFHCCLAY 09:33
PROVIDERS: ATTEND Nurse Practitioner Family
DX: E03.9 Hypothyroidism, unspecified (principal); E78.2 Mixed hyperlipidemia; I11.9 Hypertensive heart disease without heart failure

== ENCOUNTER → 2023-04-29 | Outpatient (CLI) | payer OTHER ==
[~2023-04-29] MED LIST changes: +ISOVUE-370 76% 100ML VIAL As Ordered ONE
== END ==
LOC: M RAD 14:30
PROVIDERS: ATTEND Internal Medicine Gastroenterology
DX: R77.2 Abnormality of alphafetoprotein (principal)
CPT/HCPCS: 74170; Q9967

== ENCOUNTER → 2023-05-24 | Outpatient (REF) | payer OTHER ==
[~2023-05-24] MED LIST changes: -ISOVUE-370 76% 100ML VIAL As Ordered ONE
== END ==
LOC: M SFHCWAGY 13:42
PROVIDERS: ATTEND Nurse Practitioner Family
DX: Z12.4 Encounter for screening for malignant neoplasm of cervix (principal)
CPT/HCPCS: 87624; G0123

== ENCOUNTER 2023-11-11 08:51 | Day surgery (SDC) | payer OTHER ==
[~2023-11-11] VITALS: Ht 170.2 cm; Wt 82.6 kg
[2023-11-11] MEDS: LIDOCAINE 1% SDV 5ML VIAL As Ordered ONE (07:39)
[~2023-11-11 08:51] MED LIST changes: +PHENYLEPHRINE 10% OPHTH SOL 5ML OS PRN; -ROSU10TA6 PO; +ROSU10TA61 PO; +TROPICAMIDE 1% OPHTH SOLN 15ML OS SCH
[2023-11-11] MEDS: PHENYLEPHRINE 2.5% OPHTH SOL 2ML OS SCH (09:33)
[2023-11-11] MEDS: OFLOXACIN 0.3 % (OCUFLOX) OPTH SOL 5ML OS ONE (09:33)
[2023-11-11] MEDS: ATROPINE SULFATE 1% OPHTH SOLN 2ML BTL OS SCH (09:33)
[2023-11-11] MEDS: LIDOCAINE 3.5 % 1ML OPHTH TOPICAL GEL OU ONE (09:33)
[2023-11-11] MEDS ORDERED: fentaNYL 100 MCG/2 ML INJECTION As Ordered ONE (10:10)
[2023-11-11] MEDS ORDERED: MIDAZOLAM INJ 2MG/2ML VIAL As Ordered ONE (10:10)
[2023-11-11] MEDS: BSS IRRIG/VANCO(10MG)/TOBRA(5MG)/EPINEPH(1:1000-0.5CC)500ML BAG-ORONLY As Ordered ONE (10:42)
[2023-11-11] MEDS: CEFUROXIME 1MG/0.1ML INTRACAMERAL INJ As Ordered ONE (10:49)
[2023-11-11 10:55] VITALS: BP 133/76; TEMP 97.3; O2SAT 97
== END 2023-11-11 11:10 | disposition home or self-care (01) ==
LOC: M SDC 08:51
PROVIDERS: ATTEND Ophthalmology
DX: H25.12 Age-related nuclear cataract, left eye (principal); I10 Essential (primary) hypertension; E78.5 Hyperlipidemia, unspecified; E03.9 Hypothyroidism, unspecified; K21.9 Gastro-esophageal reflux disease without esophagitis; K76.9 Liver disease, unspecified; Z79.899 Other long term (current) drug therapy; Z87.891 Personal history of nicotine dependence
CPT/HCPCS: 66984; J0697; J2250; J3010; V2632

== ENCOUNTER → 2024-04-20 | Outpatient (CLI) | payer OTHER ==
[~2024-04-20] MED LIST changes: +GABA-1172; -GABA-282; -PHENYLEPHRINE 10% OPHTH SOL 5ML OS PRN; -TROPICAMIDE 1% OPHTH SOLN 15ML OS SCH
== END ==
LOC: M RAD 12:56
PROVIDERS: ATTEND Nurse Practitioner Family
DX: Z12.2 Encounter for screening for malignant neoplasm of respiratory organs (principal); F17.211 Nicotine dependence, cigarettes, in remission; J84.9 Interstitial pulmonary disease, unspecified; I70.0 Atherosclerosis of aorta

== ENCOUNTER → 2024-05-29 | Outpatient (REF) | payer OTHER ==
[2024-05-29 19:14] LABS: HEMATOCRIT 38.6 % (36.0-47.0); HEMOGLOBIN 12.3 g/dl (12.0-15.5); MEAN CORPUSCULAR HEMOGLOBIN 28.4 pg (27.0-33.0); MEAN CORPUSCULAR HGB CONC 31.9 g/dl (32.0-36.5); MEAN CORPUSCULAR VOLUME 89.1 fl (80.0-96.0); PLATELET COUNT, AUTOMATED 369 10^3/uL (150-450); RED BLOOD COUNT 4.33 10^6/uL (4.00-5.40); WHITE BLOOD COUNT 6.1 10^3/uL (4.0-10.0)
[2024-05-29 19:38] LABS: ALBUMIN 3.6 G/DL (3.2-5.2); ALKALINE PHOSPHATASE 107 U/L (35-104); ALT/SGPT 26 U/L (7.0-40); AST/SGOT 15 U/L (<34); BILIRUBIN,TOTAL 0.3 MG/DL (0.3-1.2); BLOOD UREA NITROGEN 23 MG/DL (9-23); CALCIUM LEVEL 9.7 MG/DL (8.3-10.6); CARBON DIOXIDE LEVEL 29 MMOL/L (20-31); CHLORIDE LEVEL 105 MMOL/L (98-107); CREATININE FOR GFR 0.94 MG/DL (0.55-1.30); GLOMERULAR FILTRATION RATE > 60.0 (>45); GLUCOSE, FASTING 88 MG/DL (74-106); POTASSIUM SERUM 5.1 MMOL/L (3.5-5.1); SODIUM LEVEL 139 MMOL/L (136-145); TOTAL PROTEIN 7.1 G/DL (5.7-8.2)
== END ==
LOC: M LABDRAWC 17:22
PROVIDERS: ATTEND Internal Medicine Gastroenterology
DX: R74.8 Abnormal levels of other serum enzymes (principal)

== ENCOUNTER → 2024-05-29 | Outpatient (REF) | payer OTHER ==
[2024-05-29 19:35] LABS: THYROID STIMULATING HORMONE 0.499 uIU/ML (0.55-4.78)
[2024-05-29 19:39] LABS: ALBUMIN 3.7 G/DL (3.2-5.2); ALKALINE PHOSPHATASE 109 U/L (35-104); ALT/SGPT 26 U/L (7.0-40); AST/SGOT 14 U/L (<34); BILIRUBIN,TOTAL 0.3 MG/DL (0.3-1.2); BLOOD UREA NITROGEN 23 MG/DL (9-23); CALCIUM LEVEL 9.9 MG/DL (8.3-10.6); CARBON DIOXIDE LEVEL 29 MMOL/L (20-31); CHLORIDE LEVEL 105 MMOL/L (98-107); CHOLESTEROL LEVEL 212 MG/DL (<200); CHOLESTEROL RISK RATIO 3.15 (<5); CREATININE FOR GFR 0.93 MG/DL (0.55-1.30); FREE T4 1.28 NG/DL (0.89-1.76); GLOMERULAR FILTRATION RATE > 60.0 (>45); GLUCOSE, FASTING 86 MG/DL (74-106); HDL CHOLESTEROL 67.1 MG/DL (>40); LDL CHOLESTEROL 105.9 MG/DL (<100); NON-HDL-C 144.9 MG/DL; POTASSIUM SERUM 5.3 MMOL/L (3.5-5.1); SODIUM LEVEL 138 MMOL/L (136-145); TOTAL PROTEIN 7.2 G/DL (5.7-8.2); TRIGLYCERIDES LEVEL 195 MG/DL (<150)
== END ==
LOC: M SFHCCLAY 09:34
PROVIDERS: ATTEND Nurse Practitioner Family
DX: I11.9 Hypertensive heart disease without heart failure (principal); E03.9 Hypothyroidism, unspecified; G47.33 Obstructive sleep apnea (adult) (pediatric); E78.2 Mixed hyperlipidemia; M54.2 Cervicalgia; J30.9 Allergic rhinitis, unspecified; M47.812 Spondylosis without myelopathy or radiculopathy, cervical region

== ENCOUNTER → 2024-07-06 | Outpatient (CLI) | payer OTHER | LOC: M WHC 12:59 | PROVIDERS: ATTEND Nurse Practitioner Family | DX: Z12.31 Encounter for screening mammogram for malignant neoplasm of breast (principal) ==

== ENCOUNTER → 2025-06-15 | Outpatient (REF) | payer OTHER ==
[~2025-06-15] MED LIST changes: -ROSU10TA61 PO; +ROSU10TA90 PO
[2025-06-15 17:54] LABS: ALT/SGPT 15.0 U/L (7.0-40); AST/SGOT 16.0 U/L (<34); CALCIUM LEVEL 9.4 MG/DL (8.3-10.6); CARBON DIOXIDE LEVEL 30.0 MMOL/L (20-31); CHLORIDE LEVEL 105.0 MMOL/L (98-107); CHOLESTEROL LEVEL 203.0 MG/DL (<200); CHOLESTEROL RISK RATIO 2.7 (<5); CREATININE FOR GFR 0.87 MG/DL (0.55-1.30); GLOMERULAR FILTRATION RATE 74.8 (>45); LDL CHOLESTEROL 109.2 MG/DL (<100); NON-HDL-C 128.0 MG/DL; POTASSIUM SERUM 5.0 MMOL/L (3.5-5.1); SODIUM LEVEL 143.0 MMOL/L (136-145); TRIGLYCERIDES LEVEL 94.0 MG/DL (<150)
[2025-06-15 17:56] LABS: FREE T4 1.25 NG/DL (0.89-1.76)
[2025-06-15 19:09] LABS: ESTIMATED AVERAGE GLUCOSE 114.0 MG/DL (60-110)
== END ==
LOC: M SFHCCLAY 09:30
PROVIDERS: ATTEND Nurse Practitioner Family
DX: I11.9 Hypertensive heart disease without heart failure (principal); E03.9 Hypothyroidism, unspecified; G47.33 Obstructive sleep apnea (adult) (pediatric); E78.2 Mixed hyperlipidemia; M54.2 Cervicalgia; J30.9 Allergic rhinitis, unspecified